=== PATIENT | male | born 1940 | race Caucasian/White ===

== ENCOUNTER 2024-05-22 08:45 | Inpatient (IN) | payer MEDICARE, SELFPAY ==
[2024-05-22] VITALS (25 sets, daily range): BP systolic 117–173; BP diastolic 76–116; PULSE 76–94; RESP 12–95; TEMP 36.4–36.9; O2SAT 93–97; BMI 29.2
--- NOTE | 2024-05-22 | XR_ITS ---
Examinations: MRI Brain without intravenous contrast. MRA brain without intravenous contrast. MRA carotids without intravenous contrast 3-D vascular reconstructions Date and time of exam: May 22, 2024 at 1621 hours INDICATIONS: Onset altered mental status beginning 3:00 AM this morning worse with slurred speech and facial droop Technique: Multiple axial and sagittal images of the brain have been obtained MRA brain carotid images without contrast obtained, including 3-D postprocessing, vascular maximum intensity projection images Findings: [place] is not enlarged. The optic chiasm and infundibular stalk are not remarkable. Prepontine and interpeduncular cisterns are not enlarged. No localized enlargement of the medulla or petr. Fourth ventricle and cerebellar tonsils normal in position. Subacute hemorrhage is not seen. Fourth ventricle is midline. Mass in the cerebellopontine angle region is not evident. 7th and 8th nerve complexes exhibits symmetry. Globes are symmetrical with no retro-orbital mass. Increased white matter signal very prominent Diffusion-weighted images demonstrate foci restricted diffusion, 3 mm left occipital lobe, 11 mm, 10 mm left parietal lobe, 6 mm left parietal lobe Mass-effect upon the ventricular system is not identified. MRA carotid images no critical carotid stenoses. MRA brain images no large vessel occlusions Impression: Multiple embolic type acute infarcts, left occipital lobe, left parietal lobe as above Chronic multi-infarct dementia pattern
--- NOTE | 2024-05-22 08:46 | PC.NURSE ---
PATIENT CAME IN VIA EMS FOR AMS, SLURRED SPEECH, AND LT SIDE WEAKNESS PER FAMILY. LNW IS NOT TOTALLY CLEAR. PER DAUGHTER LNW 7PM BUT STATES PT WAS STILL AWAKE IN BED, UNSURE EXACT TIME, STATES BETWEEN MIDNIGHT TO 3AM AND PT APPEARED NORMAL AT THAT TIME. BS 158 NOTED BY EMS. PATIENT WAS TAKEN TO CT AFTER MD EVALUATED PT. DENIES ANY BLOOD THINNERS. PT WAS ABLE TO MOVE ALL LIMBS BUT LIMITED TO RT LOWER EXTREMITY. SENSATION NORMAL EXCEPT THE RT LOWER LEG. PT DID HAVE DIFFICULTY GETTING WORDS OUT AND READING PHRASES. HX OF DEMENTIA.
--- NOTE | 2024-05-22 08:52 | EKG_ITS ---
[facility] Test Date: 2024-05-22 Pat Name: CLARICE PEDERSEN Department: Room: - Gender: Male [employer] T[employer]: : 1940 Requested By: Tye Julian Order Number: [id number] Reading MD: Tye Julian Measurements Intervals [place] Rate: 77 P: 109 MS: 316 QRS: -20 QRSD: 143 T: 136 QT: 432 QTc: 490 Interpretive Statements SINUS RHYTHM WITH FIRST DEGREE AV BLOCK LEFT BUNDLE BRANCH BLOCK [120+ ms QRS DURATION, 80+ ms Q/S IN V1/V2, 85+ ms R IN I/aVL/V5/V6] No previous ECG available for comparison /store/S0/[id number].pdf
--- NOTE | 2024-05-22 08:52 | PD.EDADULT ---
ED General RME/HPI General Chief complaint: Altered Mental Status Stated complaint: STROKE Time Seen by Provider: 05/22/24 08:54 Arrival date/time: 05/22/24 08:45 RME / HPI RME / HPI narrative: 84 year old male with history of dementia presents to the ED BIBA from home for altered mental status today. Per medics, and daughter on scene reported some time around midnight-3am patient was restless and altered. This morning noted worsening in mentation with slurred speech and facial droop, prompting ED visit. On scene G-FAST=2. Daughter states she last saw the patient at 7pm yesterday 05/21 and was at his baseline. While in the ED patient is unable to provide any additional history. No family at bedside. Related Data Allergies Allergy/AdvReac Type Severity Reaction Status Date / Time No Known Allergies Allergy Verified 05/22/24 11:30 Review of Systems Review of Systems ROS Unobtainable: unobtainable due to mental status Past Medical History Social History SMOKING STATUS: Unknown if ever smoked ED Exam Narrative Physical exam: GENERAL APPEARANCE: Awake, nontoxic appearing HEENT: NC, AT. MMM. EOMI, clear conjunctiva, oropharynx clear. NECK: Supple without lymphadenopathy. No stiffness or restricted ROM. HEART: Normal rate and regular rhythm, normal S1/S1, no m/r/g LUNGS: CTAB, moving air well. No crackles or wheezes are heard. ABDOMEN: Soft, nontender, nondistended with good bowel sounds heard. BACK: No midline C/T/L spine pain or deformity, No CVAT, no obvious deformity. EXTREMITIES: Without cyanosis, clubbing or edema. MUSCULOSKELETAL: FROM of all major joints, no chest tenderness NEUROLOGICAL: Subtle right facial droop, slurred speech, no drift. Awake, moving all extremities. Skin: Warm and dry without any rash. Course Quality Measures Suspected type of Stroke: Non Acute Last known well (date): 05/21/24 Last known well (time): 19:00 Tenecteplase given: Reason(s) TPA not given: Outside the time window not given stroke Orders Category Date Time Status Bedside Blood Glucose NOW Care 05/22/24 08:52 Active Finisher Polisher NOW Care 05/22/24 08:52 Active Continuous Pulse Oximetry NOW Care 05/22/24 08:52 Active EKG (ED ONLY) *Do not use* NOW Care 05/22/24 08:52 Completed In and Out Catheter NEEDED Care 05/22/24 08:52 Active Insert IV NOW Care 05/22/24 08:52 Active NIH Stroke Scale now Care 05/22/24 08:52 Active NPO NOW Care 05/22/24 08:52 Active Neuro Check Q30MIN Care 05/22/24 08:52 Active Nurse Swallow Screen x1 Care 05/22/24 08:52 Active Consult to Neurology / Tele-Neurology Routine Cons 05/22/24 08:[address] angio stroke protocol Stat Exams 05/22/24 09:[address] stroke protocol Stat Exams 05/22/24 08:52 Completed EKG (ED Only) Stat Exams 05/22/24 08:52 Draft Blood Culture (Lab) Stat Lab 05/22/24 11:27 Received CBC Stat Lab 05/22/24 09:03 Completed Comprehensive Metabolic Panel Stat Lab 05/22/24 09:03 Completed Drug Screen,Urine Stat Lab 05/22/24 08:04 Completed Magnesium Stat Lab 05/22/24 09:03 Completed Partial Thromboplastin Time Stat Lab 05/22/24 09:03 Completed Procalcitonin Stat Lab 05/22/24 11:30 Completed Prothrombin Time with INR Stat Lab 05/22/24 09:03 Completed Troponin I Stat Lab 05/22/24 09:03 Completed Urinalysis Stat Lab 05/22/24 08:04 Completed Urine Culture Stat Lab 05/22/24 08:04 Received Aspirin [Ecotrin] Med 05/22/24 11:24 Discontinued 81 mg PO X1 ONE Ondansetron Inj [Zofran Inj] Med 05/22/24 08:52 Discontinued 4 mg IV Q4HR PRN cefTRIAXone/D5w 1gm IV premix [Rocephin/D5w 1gm IV Med 05/22/24 11:18 Discontinued premix] 50 ml IV X1 Oxygen Delivery NOW RT 05/22/24 08:52 Active Vital Signs Vital signs: Vital Signs Temperature 98.2 F 05/22/24 08:50 Pulse Rate 85 05/22/24 08:50 Respiratory Rate 19 05/22/24 08:50 Blood Pressure 124/85 H 05/22/24 08:50 Pulse Oximetry (%) 93 L 05/22/24 08:50 Pulse ox is 93% on room air which is low. [facility] Patient data External records reviewed:: EMS form Clinical information provided by:: EMS (Provided prehospital course) Social determinants that could affect healthcare access:: none Patient has the following chronic illnesses:: Dementia How is presenting disease/condition affected by chronic disease/condition?: exacerbated by Evaluation data The following diagnostics were reviewed and interpreted by me:: lab results, radiology exam(s) and EKG tracing(s) (Sinus rhythm, rate 77, left bundle branch block, no acute ST or T-wave changes, no STEMI. ) Lab and/or radiology exams considered but not ordered:: None Interpretation Summary: Ordering Physician: Tye Julian MD Date of Service: 05/22/24 Procedure(s): CT stroke protocol Accession Number(s): [id number] cc: Tye Julian MD; Quentin Espinoza MD~ Examination: CT brain head without contrast. 2-D sagittal coronal reconstructions Date and time of exam:May 22, 2024 at 0856 hours INDICATIONS: Stroke alert, onset focal neurologic deficit, slurred speech, altered mental status today, clinical diagnosis stroke CTDI: vol (mGy):51.9 DLP: (mGycm):1052 Technique: Multiple CT axial sections of the brain have been obtained, 5 mm slice thickness. Contrast has not been administered. 2-D sagittal, coronal reconstructions have been obtained Low dose protocols were performed. One or more of the following dose reduction techniques were used; automated exposure control, adjustment of the mA and/or KV according to patient size, use of iterative reconstruction technique. Findings: No significant ventricular enlargement. Bifrontal encephalomalacia Old infarct in the left basal ganglia and right occipital lobe Smaller old infarct in the left occipital lobe Bilateral cerebellar hemisphere infarcts which also appear old Intra-axial or extra-axial hemorrhage density is not seen. No mass effect or midline shift Basal cisterns are not remarkable. Fourth ventricle is midline. Cranial vault intact. Impression: Negative for acute hemorrhage, mass effect or midline shift Multiple infarcts as above, which appear old, but clinical correlation advised Recommend repeat brain MRI MRA without contrast, stroke protocol follow-up Dictated By:Quentin Espinoza MD Signed By:<Electronically signed by Quentin Espinoza MD in [place]>05/22/24 0902 Ordering Physician: Tye Julian MD Date of Service: 05/22/24 Procedure(s): CT angio stroke protocol Accession Number(s): [id number] cc: Sudhakar Willis MD; Tye Julian MD; Quentin Espinoza MD~ Examination: CTA carotids with intravenous contrast CTA brain, head with intravenous contrast. 2-D sagittal, coronal reconstructions. 3-D reconstructions. Exam date and time: May 22, 2024 0914 hours INDICATIONS: Stroke alert, onset slurred speech altered mental status today CTDI: vol (mGy) 11.2 DLP: (mGycm) 435 Technique: Multiple CTA axial brain, head carotid images post intravenous contrast injection 75 cc, Isovue-370. 2-D sagittal, coronal reconstructions. 3-D reconstructions, 3-D post processing including vascular maximum intensity projection images. Low dose protocols were performed. One or more of the following dose reduction techniques were used; automated exposure control, adjustment of the mA and/or KV according to patient size, use of iterative reconstruction technique. Findings: No significant common carotid carotid bifurcation or internal carotid artery stenoses Dominant right vertebral artery with no critical stenoses No cerebral large vessel arterial occlusions, thrombus, dissection or cerebral aneurysm IMPRESSION: No significant neck arterial stenoses No cerebral large vessel arterial occlusions, thrombus, dissection or cerebral aneurysm Dictated By:Quentin Espinoza MD Signed By:<Electronically signed by Quentin Espinoza MD in [place]>05/22/24 1001 Medications Medications considered but not ordered:: None Medication administrations:: Medication Administration History Acetaminophen (Acetaminophen 325 Mg Tablet) 650 mg PO Q6H PRN PRN Reason: Fever >101.5 Stop: 06/21/24 11:45 Acetaminophen (Acetaminophen 325 Mg Tablet) 650 mg PO Q6H PRN PRN Reason: PAIN SCALE 1-3 (mild Stop: 06/21/24 11:45 Hydrocodone Bitart/Acetaminophen (Hydrocodone/Apap 5/325 Tablet) 1 tab PO Q6HR PRN PRN Reason: PAIN SCALE 4-6 (Moderate Stop: 05/27/24 11:45 Aspirin (Aspirin Ec 81 Mg Tabec) 81 mg PO QDAY [facility] Stop: 06/22/24 08:59 Heparin Sodium (Porcine) (Heparin Sod Inj 5000 Unit/Ml Vial) 5,000 unit SC Q12H DULCE Stop: 06/05/24 11:59 Last Admin: 05/22/24 12:40 Dose: Not Given Documented By: HORACIO Non-Admin Reason: Other, see note Ceftriaxone Sodium/Dextrose (Rocephin/D5w 1gm Iv Premix) 50 mls @ 100 mls/hr IV QDAY [facility] Stop: 05/30/24 08:59 Labetalol HCl (Labetalol 100 Mg Tablet) 100 mg PO Q6H PRN PRN Reason: If SBP>220mmHg or DBP >120mmHg Stop: 06/21/24 16:08 Morphine Sulfate (Morphine Sulf Inj 10 Mg/Ml Vial) 1 mg IVP Q4H PRN PRN Reason: PAIN SCALE 7-10 (Severe Stop: 05/27/24 11:45 Ondansetron HCl (Ondansetron Inj 2 Mg/Ml Inj 2 Ml) 4 mg IV Q6H PRN; Protocol PRN Reason: NAUSEA OR VOMITING Stop: 06/21/24 11:45 Discontinued Medications Aspirin (Aspirin Ec 81 Mg Tabec) 81 mg PO X1 ONE Stop: 05/22/24 11:25 Last Admin: 05/22/24 11:31 Dose: Not Given Documented By: HORACIO Non-Admin Reason: NPO Ceftriaxone Sodium/Dextrose (Rocephin/D5w 1gm Iv Premix) 50 mls @ 100 mls/hr IV X1 ONE Stop: 05/22/24 11:47 Last Infusion: 05/22/24 12:20 Dose: Infused Documented By: Admin: 05/22/24 11:31 Dose: 100 mls/hr Documented By: HORACIO Ondansetron HCl (Ondansetron Inj 2 Mg/Ml Inj 2 Ml) 4 mg IV Q4HR PRN PRN Reason: NAUSEA OR VOMITING Stop: 06/21/24 08:51 See above Consultations Consultation(s) initiated? (list below): Yes Consultation #1 (Physician, Specialty, Details): I spoke with teleneurologist Dr. Taylor. Discussed patients PMHx, ED course, exam findings and radiology results. States patient was LKW at 07:00pm last night, not a tpa candidate given he is above the 4.5 window. Time: 09:40 Consultation #2 (Physician, Specialty, Details): I spoke with resident Dr. Jocye working with Dr. Napoles Time: 11:25 Diagnosis Differential Diagnosis ED Complaint MDM: TIA, CVA, UTI, dehydration Most likely diagnosis given after review of the tests above:: CVA Admission Indicated Admission indicated?: indicated Explain why admission is indicated or not indicated:: Further stroke workup. Admission Request Was there a request for admission?: Yes Admission Attestation Admission request attestation: Discussed case with [] from Hospitalist service regarding admission. Discussed patients ED course, exam findings, labs, and radiology results. The Hospitalist [agrees,declines] to accept the patient for admission. Disposition Plan Disposition Plan: Admit Medical Decision Making Differential Diagnosis Differential Diagnosis: TIA, CVA, UTI, dehydration Lab Data 05/22/24 09:03 05/22/24 09:03 Labs: Lab Results 05/22/24 05/22/24 05/22/24 Range/Units 08:04 09:03 11:30 WBC 8.5 (3.8-10.6) Thou/mm3 RBC 4.28 L (4.50-5.90) Miln/mm3 Hgb 13.9 (13.5-16.0) g/dL Hct 41.1 (41.0-53.0) % MCV 96 (80-100) fL MCH 32.5 (25.0-35.0) pg MCHC 33.8 (31.0-37.0) g/dl RDW Std Deviation 51.4 H (35.1-43.9) fL Plt Count 122 L (140-440) Thou/mm3 Neut % (Auto) 72 (37-80) % Lymph % (Auto) 19 (10-50) % Levy % (Auto) 6 (0-12) % Eos % (Auto) 2 (0-10) % Baso % (Auto) 1 (0-2.5) % Neut # (Auto) 6.1 (1.8-7.7) Thou/mm3 Lymph # (Auto) 1.6 (1.0-4.8) Thou/mm3 Levy # (Auto) 0.5 (0.0-0.8) Thou/mm3 Eos # (Auto) 0.1 (0.0-0.5) Thou/mm3 Baso # (Auto) 0.0 (0.0-0.2) Thou/mm3 Immature Gran # (Auto) 0.04 H (0.00-0.00) Thou/mm3 Absolute Nucleated RBC 0.00 (0.00-0.00) Thou/mm3 Immature Gran % 1 H (0-0) % Nucleated RBC % 0 (0) /100 WBC PT 11.4 (9.0-12.2) Seconds INR 1.0 (0.9-1.3) APTT 25.9 (22.0-36.0) Seconds Sodium 145 (136-145) mMol/L Potassium 3.8 (3.4-5.1) mMol/L Chloride 109 H (98-107) mMol/L Carbon Dioxide 31.9 H (20.0-31.0) mMol/L Anion Gap 4 L (7-16) BUN 15 (9-23) mg/dL Creatinine 1.2 (0.6-1.3) mg/dL Estim Creat Clear Calc Not Performed. eGFR > 60 (60 - ) See Note BUN/Creatinine Ratio 13 (12-20) Ratio Glucose 120 H (74-106) mg/dL Calculated Osmolality 290 (275-295) Calcium 9.5 (8.3-10.6) mg/dL Corrected Calcium 9.5 (8.5-10.1) mg/dL Magnesium 2.1 (1.6-2.6) mg/dL Total Bilirubin 0.8 (0.3-1.2) mg/dL AST 16 (0-34) U/L ALT 14 (10-49) U/L Alkaline Phosphatase 105 (46-116) U/L Troponin I < 0.020 (0.0-0.045) ng/mL Total Protein 6.4 (5.7-8.2) gm/dL Albumin 4.1 (3.4-4.8) gm/dL Globulin 2.3 (2.3-3.5) gm/dL Albumin/Globulin Ratio 1.8 (1.2-2.2) Procalcitonin 0.06 (0.0-0.49) ng/ml Ur Collection Type Catheter Urine Color Yellow (Lt Yel-Yel) Urine Clarity Hazy (Clear/Hazy) Urine pH 5.5 (5.0-7.0) Ur Specific [place] 1.027 (1.001-1.035) Urine Protein Trace (Neg - Trace) Urine Glucose (UA) Negative (Negative) Urine Ketones Negative (Negative) Urine Blood Negative (Negative) Urine Nitrite Positive (Negative) Urine Bilirubin Negative (Negative) Urine Urobilinogen (Auto) Negative (0.0-1.0) mg/dL Ur Leukocyte Esterase Positive (Negative) Urine RBC 11 H (0-3) /hpf Urine WBC 57 H (0-5) /hpf Ur Squamous Epith Cells 1 (0-5) /hpf Urine Bacteria 2+ A (None) Hyaline Casts < 1 (0-1) /hpf Urine Opiates Screen Negative (Negative) Urine Fentanyl Screen Negative (Negative) Ur Barbiturates Screen Negative (Negative) U Amphetamin/Meth Scrn Negative (Negative) U Benzodiazepines Scrn Negative (Negative) U Cocaine Metab Screen Negative (Negative) U Marijuana (THC) Screen Negative (Negative) Discharge Plan Plan Patient Disposition: Admit Acute Care w/in Hospital Problem List Clinical Impression: Acute CVA (cerebrovascular accident), Dementia, Acute UTI
[2024-05-22 09:11] LABS: Basophils % (Auto) 1 % (0-2.5); Eosinophils # (Auto) 0.1 Thou/mm3 (0.0-0.5); Eosinophils % (Auto) 2 % (0-10); Hematocrit 41.1 % (41.0-53.0); Hemoglobin 13.9 g/dL (13.5-16.0); Immature Granulocytes % (Auto) 1 % (0-0); Immature Granulocytes Auto 0.04 Thou/mm3 (0.00-0.00); Lymphocytes # (Auto) 1.6 Thou/mm3 (1.0-4.8); Lymphocytes % (Auto) 19 % (10-50); Mean Corpuscular HGB Conc 33.8 g/dl (31.0-37.0); Mean Corpuscular Hemoglobin 32.5 pg (25.0-35.0); Mean Corpuscular Volume 96 fL (80-100); Monocytes # (Auto) 0.5 Thou/mm3 (0.0-0.8); Monocytes % (Auto) 6 % (0-12); Neutrophils # (Auto) 6.1 Thou/mm3 (1.8-7.7); Neutrophils % (Auto) 72 % (37-80); Nucleated Red Blood Cell % 0 /100 WBC (0); Platelet Count 122 Thou/mm3 (140-440); RDW Standard Deviation 51.4 fL (35.1-43.9); Red Blood Count 4.28 Miln/mm3 (4.50-5.90); White Blood Count 8.5 Thou/mm3 (3.8-10.6)
--- NOTE | 2024-05-22 09:12 | XR_ITS ---
Examination: CTA carotids with intravenous contrast CTA brain, head with intravenous contrast. 2-D sagittal, coronal reconstructions. 3-D reconstructions. Exam date and time: May 22, 2024 0914 hours INDICATIONS: Stroke alert, onset slurred speech altered mental status today CTDI: vol (mGy) 11.2 DLP: (mGycm) 435 Technique: Multiple CTA axial brain, head carotid images post intravenous contrast injection 75 cc, Isovue-370. 2-D sagittal, coronal reconstructions. 3-D reconstructions, 3-D post processing including vascular maximum intensity projection images. Low dose protocols were performed. One or more of the following dose reduction techniques were used; automated exposure control, adjustment of the mA and/or KV according to patient size, use of iterative reconstruction technique. Findings: No significant common carotid carotid bifurcation or internal carotid artery stenoses Dominant right vertebral artery with no critical stenoses No cerebral large vessel arterial occlusions, thrombus, dissection or cerebral aneurysm IMPRESSION: No significant neck arterial stenoses No cerebral large vessel arterial occlusions, thrombus, dissection or cerebral aneurysm
--- NOTE | 2024-05-22 09:27 | PC.NURSE ---
RETURNED FROM CT VIA [facility] AT THIS TIME
[2024-05-22 09:31] LABS: Alanine Aminotransferase 14 U/L (10-49); Albumin, Serum 4.1 gm/dL (3.4-4.8); Albumin/Globulin Ratio 1.8 (1.2-2.2); Alkaline Phosphatase 105 U/L (46-116); Anion Gap 4 (7-16); Aspartate Amino Transferase 16 U/L (0-34); BUN/Creatinine Ratio 13 Ratio (12-20); Bilirubin,Total 0.8 mg/dL (0.3-1.2); Blood Urea Nitrogen 15 mg/dL (9-23); Calcium 9.5 mg/dL (8.3-10.6); Calcium (Corrected) 9.5 mg/dL (8.5-10.1); Carbon Dioxide 31.9 mMol/L (20.0-31.0); Chloride 109 mMol/L (98-107); Creatinine (Component) 1.2 mg/dL (0.6-1.3); Globulin 2.3 gm/dL (2.3-3.5); Glucose 120 mg/dL (74-106); Magnesium 2.1 mg/dL (1.6-2.6); Osmolality,Calculated 290 (275-295); Potassium 3.8 mMol/L (3.4-5.1); Sodium 145 mMol/L (136-145); Total Protein 6.4 gm/dL (5.7-8.2); Troponin I < 0.020 ng/mL (0.0-0.045); eGFR > 60 See Note
[2024-05-22 09:34] LABS: Partial Thromboplastin Time 25.9 Seconds (22.0-36.0); Prothrombin Time 11.4 Seconds (9.0-12.2)
--- NOTE | 2024-05-22 09:39 | PD.TNEURO ---
Tele Neuro Consultation Consultation Date 05/22/24 Most Recent Vital Signs Last Vital Signs Temp 98.2 F 05/22/24 08:50 Pulse 85 05/22/24 08:50 Resp 19 05/22/24 08:50 BP 124/85 H 05/22/24 08:50 Pulse Ox 93 L 05/22/24 08:50 Laboratory-Coagulation Panel PT 11.4 Seconds (9.0-12.2) 05/22/24 09:03 INR 1.0 (0.9-1.3) 05/22/24 09:03 APTT 25.9 Seconds (22.0-36.0) 05/22/24 09:03 Consultation Narrative [facility] Tele[facility]urology Consult Services Patient Name:???Meir Anderson Date of :???1940 Identification Number:??? Date of Service:???05/22/2024 08:43:30 Diagnosis:?I63.89 - Cerebrovascular accident (CVA) due to other mechanism (HCCC) Impression: ?84 y/o M with history of HTN, dementia, imaging evidence of prior strokes, presenting to hospital with dysarthria, facial droop, and altered mentation, LKN 7:00 PM last night. NIHSS is 7 (unable to answer orientation questions, right facial droop, dysarthria, right leg drift, potentially aphasia in that he is unable to read sentences or describe picture). NCHCT shows multiple chronic infarcts, no acute abnormalities. He is not thrombolytic candidate since LKN > 4.5 hours. CTA head/neck does not suggest LVO. ? ?Highest concern is for acute ischemic stroke, versus recrudescence of prior stroke symptoms in setting of metabolic/infectious etiology. Recommend admission for monitoring and further evaluation. Our recommendations are outlined below. Recommendations: ? Stroke/Telemetry Floor ? Neuro Checks ? Bedside Swallow Eval ? DVT Prophylaxis ? IV Fluids, Normal Saline ? Head of Bed 30 Degrees ? Euglycemia and Avoid Hyperthermia (PRN Acetaminophen) ? Initiate or continue Aspirin 81 MG daily ? Antihypertensives PRN if Blood pressure is greater than 220/120 or there is a concern for End organ damage/contraindications for permissive HTN. If blood pressure is greater than 220/120 give labetalol PO or IV or Vasotec IV with a goal of 15% reduction in BP during the first 24 hours. ?-MRI brain w/o contrast ?-TTE ?-telemetry monitoring ?-lipid profile, A1C ?-metabolic/infectious work-up Sign Out: ? Discussed with Emergency Department Provider Advanced Imaging:Advanced imaging has been ordered. Results pending. Metrics: Last Known Well: 05/21/2024 19:00:00 Dispatch Time: 05/22/2024 08:43:30 Arrival Time: 05/22/2024 08:45:00 Initial Response Time: 05/22/2024 08:47:46Symptoms: facial droop, dysarthria, AMS. Initial patient interaction: 05/22/2024 08:56:00 NIHSS Assessment Completed: 05/22/2024 09:10:28Patient is not a candidate for Thrombolytic. Thrombolytic Medical Decision: 05/22/2024 09:13:34Patient was not deemed candidate for Thrombolytic because of following reasons: LKW outside 4.[address] head showed no acute hemorrhage or acute core infarct. I personally Reviewed the CT Head and it Showed multiple chronic infarcts (bilateral occipital lobes, bilateral cerebellar hemispheres, left basal ganglia, left frontal region); no acute abnormalities Primary Provider Notified of Diagnostic Impression and Management Plan on: 05/22/2024 09:39:18 History of Present Illness:Patient is a 84 year old Male. Patient was brought by EMS for symptoms of facial droop, dysarthria, AMS. History is provided by EMS. Patient himself unable to provide history due to difficulty with articulation and altered mentation. Patient does reportedly have baseline history of dementia. LKN as per patient's daughter was around 7 PM last night. Throughout the night, he apparently had been restless and was pacing, which is abnormal. When she checked in on him around 7 AM, he was noted to have dysarthria, facial droop and altered mentation. EMS was activated, and he was taken to ER for further evaluation. There is no family at the bedside at this time, no further details immediately available. ? Past Medical History: ?Hypertension ?Stroke ?Dementia/MCI Medications: No Anticoagulant use? No Antiplatelet use Reviewed EMR for current medications Allergies:? Reviewed Social History: Unable To Obtain Due To Patient Status :?Patient Is Confused Family History: There is no family history of premature cerebrovascular disease pertinent to this consultation ROS : 14 Points Review of Systems was performed and was negative except mentioned in HPI. Past Surgical History: There Is No Surgical History Contributory To Today?s Visit ? Examination: BP(136/86),?Pulse(93), 1A: Level of Consciousness - Arouses to minor stimulation?+ 1 1B: Ask Month and Age - Could Not Answer Either Question Correctly?+ 2 1C: Blink Eyes & Squeeze Hands - Performs Both Tasks?+ 0 2: Test Horizontal Extraocular Movements - Normal?+ 0 3: Test Visual Boateng - No Visual Loss?+ 0 4: Test Facial Palsy (Use Grimace if Obtunded) - Minor paralysis (flat nasolabial fold, smile asymmetry)?+ 1 5A: Test Left Arm Motor Drift - No Drift for 10 Seconds?+ 0 5B: Test Right Arm Motor Drift - No Drift for 10 Seconds?+ 0 6A: Test Left Leg Motor Drift - No Drift for 5 Seconds?+ 0 6B: Test Right Leg Motor Drift - Drift, but doesn't hit bed?+ 1 7: Test Limb Ataxia (FNF/Heel-Rhodes) - No Ataxia?+ 0 8: Test Sensation - Normal; No sensory loss?+ 0 9: Test Language/Aphasia - Mild-Moderate Aphasia: Some Obvious Changes, Without Significant Limitation?+ 1 10: Test Dysarthria - Mild-Moderate Dysarthria: Slurring but can be understood?+ 1 11: Test Extinction/Inattention - No abnormality?+ 0 NIHSS Score:?7 NIHSS Free Text :?-states month is August ?-doesn't know age ?-right lower facial droop ?-able to name objects, but difficulty reading sentences and describing picture scene Pre-Morbid Modified [place] Scale:Unable to assess Spoke with :?Dr. Julian This consult was conducted in real time using interactive audio and video technology. Patient was informed of the technology being used for this visit and agreed to proceed. Patient located in hospital and provider located at home/office setting. Patient is being evaluated for possible acute neurologic impairment and high probability of imminent or life-threatening deterioration. I spent total of 55 minutes providing care to this patient, including time for face to face visit via telemedicine, review of medical records, imaging studies and discussion of findings with providers, the patient and/or family. Dr Rafita Taylor [facility] For Inpatient follow-up with [facility] physician please call [facility] at . As we are not an outpatient service for any post hospital discharge needs please contact the hospital for assistance. If you have any questions for the [facility] physicians or need to reconsult for clinical or diagnostic changes please contact us via [facility] at . ?
[2024-05-22 09:50] LABS: Collection Type, Urine Catheter
[2024-05-22 10:11] LABS: Amphetamine/Methamp Scrn,U Negative (Negative); Barbiturate Screen,Urine Negative (Negative); Benzodiazepines Screen,Urine Negative (Negative); Benzoylecgonine Screen, Ur Negative (Negative); Fentanyl Screen,Urine Negative (Negative); Opiate Screen,Urine Negative (Negative); THC Screen,Urine Negative (Negative)
[2024-05-22 10:28] LABS: Bacteria,Urine 2+; Bilirubin,Urine Negative (Negative); Blood,Urine Negative (Negative); Color,Urine Yellow (Lt Yel-Yel); Glucose, Urine Negative (Negative); Hyaline Casts,Urine < 1 /hpf (0-1); Ketones,Urine Negative (Negative); Leukocyte Esterase,Urine Positive (Negative); Nitrite,Urine Positive (Negative); PH,Urine 5.5 (5.0-7.0); Protein,Urine Trace (Neg - Trace); RBC,Urine 11 /hpf (0-3); Specific Gravity,Urine 1.027 (1.001-1.035); Squamous Epithelial Cell,Urine 1 /hpf (0-5); Urobilinogen,Urine Negative mg/dL (0.0-1.0); WBC,Urine 57 /hpf (0-5)
[2024-05-22 10:31] LABS: Clarity,Urine Hazy (Clear/Hazy)
[2024-05-22] MEDS: cefTRIAXone/D5w 1gm IV premix 50 ML IV (11:31)
--- NOTE | 2024-05-22 11:49 | ECHO_ITS ---
Transthoracic Echo Report Ht (in): 66 Wt (lb): 186 Exam Location: Portable Status: Emergency Burn Out Scarfing Operator: Khadra Cason Indications: Procedure Performed: BP: 131 / 89 HR: 79 Rhythm: Atrial fibrillation Technical Quality: Technically difficult study MEASUREMENTS (Male / Female) Normal Values 2D ECHO LV Diastolic Diameter PLAX 4.0 cm 4.2 - 5.9 / 3.9 - 5.3 cm LV Systolic Diameter PLAX 3.1 cm IVS Diastolic Thickness 1.2 cm 0.6 - 1.0 / 0.6 - 0.9 cm LVPW Diastolic Thickness 1.2 cm 0.6 - 1.0 / 0.6 - 0.9 cm LV Relative Wall Thickness 0.6 LVOT Diameter 1.5 cm LA Volume Index 28.2 cm?/m? 16 - 28 cm?/m? Ascending Aorta Diameter 4.4 cm M-MODE Aortic Root Diameter MM 3.4 cm LA Systolic Diameter MM 3.0 cm LA Ao Ratio MM 0.9 AV Cusp Separation MM 1.7 cm DOPPLER AV Peak Velocity 244.8 cm/s AV Peak Gradient 24.0 mmHg AV Mean Gradient 12.6 mmHg AV Velocity Time Integral 46.2 cm LVOT Peak Velocity 63.5 cm/s LVOT Peak Gradient 1.6 mmHg LVOT Velocity Time Integral 12.6 cm LVOT Cardiac Index 876.3 cm?/min?m? AV Area Cont Eq vti 0.5 cm? AV Area Cont Eq pk 0.5 cm? MV Peak Velocity 110.0 cm/s MV Peak Gradient 4.8 mmHg MV Mean Velocity 53.5 cm/s MV Mean Gradient 2.0 mmHg MV Area PHT 4.3 cm? Mitral E Point Velocity 100.0 cm/s Mitral A Point Velocity 1.0 cm/s Mitral E to A Ratio 103.1 LV E' Lateral Velocity 7.1 cm/s Mitral E to LV E' Lateral Ratio 14.1 LV E' Septal Velocity 7.0 cm/s Mitral E to LV E' Septal Ratio 14.4 FINDINGS Left Ventricle Normal left ventricular size. Mild LVH.Low systolic function. Dyskentic apick septal and inferior wa ll. The ejection fraction is visually estimated at 45-50%. Right Ventricle The right ventricle is normal in size and systolic function. Left Atrium The left atrium is normal by two-dimensional, color flow and Doppler imaging with no structural abnormalities, no thrombus formation present. Right Atrium Right atrium is not well visualized. Atrial Septum The interatrial septum appears normal with no evidence of a shunt. Aorta The aortic root is moderately dilated. and the acending aorta is moderately dilated. 4.4cm. Mitral Valve The mitral valve is normal by two-dimensional, color flow and Doppler interrogation. There is no sig nificant mitral valve regurgitation. Aortic Valve The aortic valve is trileaflet. Mild stenosis, mean gradient 19mmHg, vmax 2.7ms/. There is no signif icant aortic valve regurgitation. Tricuspid Valve The tricuspid valve is normal by two-dimensional, color flow and Doppler interrogation. There is tra ce tricuspid valve regurgitation. Pulmonic Valve The pulmonic valve is not well visualized. There is no significant pulmonic valve regurgitation. Vessels The pulmonary artery appears normal. The inferior vena cava pulmonary and hepatic veins appear sarah l. Pericardium The pericardium is normal by two-dimensional imaging. There is no significant pericardial effusion. CONCLUSIONS Indication: CVA Negative bubble study. TTE is suboptimal to rule out PFO or ASD. Consider [place] if high clinical suspi cion. The aortic root is moderately dilated and the ascending aorta is moderately dilated. 4.4cm. Normal LV size. Low normal function around 45-50%. Mild LVH. Lateral and septal wall dysnchrony not ed due to LBBB. Cannot determine diastolic function due to Afib. Normal RV size and function. Trace TR. Mild to moderate AV stenosis, mean gradient 19mmHg. vmax 2.7m/s. KRISSY < 1 sq cm. Probably under estimated AV stenosis due to mildly low EF. Ibrahima Enriquez (Electronically Signed) Final Date: 23 May 2024 18:38
[2024-05-22 12:01] LABS: Procalcitonin 0.06 ng/ml (0.0-0.49)
--- NOTE | 2024-05-22 13:08 | ESHP_ITS ---
<Statement entered by Sisi Joyce MD - 05/23/24 06:00> Mr. Meir Enrique is an 84y/o male with a history of hypertension, dementia, prior strokes found on imaging but not known to patient's family who presented to the ED on 05/22/2024 for acute-onset dysarthria and right facial droop since 7:15AM this morning and admitted for stroke workup. Per patient's family, patient is A&O x 2 and able to speak in full and clear sentences. Patient on bedside had difficulty with saying his name and place, and pinpoint his tow family members at bedside d/t his signfiicant aphasia. Patient doesn't remember what happened during the stroke. Will order MR stroke protocol, start Asa, head of bed elevation > 30 degrees, Neuro checks Q4H, monitor on tele, speech eval, and r/o any other infectious/metabolic causes. I discussed with and supervised the internet e commerce specialist physician who took care of this patient. I personally saw and examined the patient and discussed the assessment and plan with the entire medicine team, including my attending Dr. Napoles, I agree with most of the assessment and plan as documented below Sisi Joyce M.D. PGY-2 Documentation for date of: 05/22/24 HPI History of Present Illness Chief complaint: CVA rule out History of present illness: Mr. Meir Enrique is an 84y/o male with a history of hypertension, dementia, prior strokes found on imaging but not known to patient's family who presented to the ED on 05/22/2024 for acute-onset dysarthria and facial droop. Patient himself is unable to answer questions verbally, so history taken from daughter and at bedside. Daughter states that yesterday patient was overall at his neurological baseline in which he can speak clearly without issue, move all extremities, and with some assistance can move from bed into a wheelchair to wheel himself around the house. Patient typically undergoes frequent physical therapy at home to strengthen his extremities, but daughter states that yesterday, he was unwilling to participate in physical therapy due to fatigue. and daughter had seen patient at 3AM this morning, at which time patient was restless but at his neurological baseline still. This morning at 7AM, family noted slurred speech with facial droop. They could not understand any of his speech and he was unable to move from bed, so EMS was called and brought pt into the ED. Per daughter, patient has no knowledge of any previous strokes in his past, and has no new changes in medications. He is incontinent of urine at baseline. In the ED, patient was found to have NIHSS 7, slurred speech, right-sided facial droop, slight drift of the right lower extremties. He was not a tPA candidate due to his last well known time being greater than 4.5 hours from his admission to the ED. He was found to be afebrile, normotensive, pulse 85, respirations 19, and spO2 93% on room air. Labs were grossly unremarkable with normal WBC, Hgb 13.9, electrolytes within normal limits, BUN/Cr within normal limits, coagulation studies within normal limits, and AST/ALT within normal limits. He was given one dose of Rocephin and admitted to the floor. PMH: As above Surgical Hx: None Medications: Donepezil 10mg qd, losartan 50mg qd, protonix 40mg qd, quetiapine 25mg qd, memantine 5mg BID, sertraline 100mg qd, carvedilol 3.125mg BID Allergies: NKDA Review of Systems Constitutional Comments: Unable to assess as patient not able to respond verbally aside from shaking his head when asked if he is experiencing any pain Exam Vital Signs Temp Pulse Resp BP Pulse Ox O2 Del Method FiO2 98.5 F 80 15 142/91 H 95 Room Air 96 05/22/24 12:37 05/22/24 12:37 05/22/24 12:37 05/22/24 12:37 05/22/24 12:37 05/22/24 12:37 05/22/24 08:52 Narrative Exam Gen: Alert, oriented to self only, responsive to questions, follows commands, in no acute distress HEENT: Mild right-sided facial droop, speech severely slurred CVS: normal S1 and S2. RRR. No M/R/G. Resp: CTA B/L. No rhonchi, rales, crackles or wheezing. Abd: soft, non-tender, non-distended. BS+ in all 4 quadrants. MSK: Good ROM in BUE & BLE. No edema or rash. Neuro: Right-sided facial droop noted, patient moves all extremities spontaneously and on command, muscle strength intact, sensation intact Psych: appropriate mood and affect. NIH Stroke Scale 1A: Level of Consciousness - Arouses to minor stimulation?+ 1 1B: Ask Month and Age - Could Not Answer Either Question Correctly?+ 2 1C: Blink Eyes & Squeeze Hands - Performs Both Tasks?+ 0 2: Test Horizontal Extraocular Movements - Normal?+ 0 3: Test Visual Boateng - No Visual Loss?+ 0 4: Test Facial Palsy (Use Grimace if Obtunded) - Minor paralysis (flat nasolabial fold, smile asymmetry)?+ 1 5A: Test Left Arm Motor Drift - No Drift for 10 Seconds?+ 0 5B: Test Right Arm Motor Drift - No Drift for 10 Seconds?+ 0 6A: Test Left Leg Motor Drift - No Drift for 5 Seconds?+ 0 6B: Test Right Leg Motor Drift - Drift, but doesn't hit bed?+ 1 7: Test Limb Ataxia (FNF/Heel-Rhodes) - No Ataxia?+ 0 8: Test Sensation - Normal; No sensory loss?+ 0 9: Test Language/Aphasia - Mild-Moderate Aphasia: Some Obvious Changes, Without Significant Limitation?+ 1 10: Test Dysarthria - Mild-Moderate Dysarthria: Slurring but can be understood?+ 1 11: Test Extinction/Inattention - No abnormality?+ 0 NIHSS Score:?7 Results: Labs 05/23/24 05:23 05/23/24 05:23 Labs: Short CBC 05/22/24 Range/Units 09:03 WBC 8.5 (3.8-10.6) Thou/mm3 Hgb 13.9 (13.5-16.0) g/dL Hct 41.1 (41.0-53.0) % Plt Count 122 L (140-440) Thou/mm3 BMP 05/22/24 09:03 Sodium 145 Potassium 3.8 Chloride 109 H Carbon Dioxide 31.9 H BUN 15 Creatinine 1.2 Glucose 120 H Calcium 9.5 Cardiac Enzymes 05/22/24 Range/Units 09:03 Troponin I < 0.020 (0.0-0.045) ng/mL Liver Function 05/22/24 Range/Units 09:03 Total Bilirubin 0.8 (0.3-1.2) mg/dL AST 16 (0-34) U/L ALT 14 (10-49) U/L Alkaline Phosphatase 105 (46-116) U/L Albumin 4.1 (3.4-4.8) gm/dL Urine 05/22/24 Range/Units 08:04 Urine Color Yellow (Lt Yel-Yel) Urine Clarity Hazy (Clear/Hazy) Urine pH 5.5 (5.0-7.0) Ur Specific [place] 1.027 (1.001-1.035) Urine Protein Trace (Neg - Trace) Urine Glucose (UA) Negative (Negative) Quality Measures Quality Measures stroke Suspected type of Stroke: Non Acute Last known well (date): 05/21/24 Last known well (time): 19:00 Tenecteplase given: Reason(s) Tenecteplase not given: Outside the time window not given Rehab services: PT evaluation ordered and Speech Language Pathology eval ordered VTE Prophylaxis: pharmaceutical Antithrombotic by day 2:: ordered Statin ordered: not ordered Anticoagulation ordered for A-fib or flutter (current or hx): not indicated Advance care planning discussed with:: patient Medications Home Medications and Allergies Home Medications ?Medication ?Instructions ?Recorded ?Confirmed ?Type carvedilol 3.125 mg tablet 3.125 mg PO BID 05/22/24 05/22/24 History donepezil 10 mg tablet 10 mg PO HS 05/22/24 05/22/24 History losartan 100 1 tab PO DAILY 05/22/24 05/22/24 History mg-hydrochlorothiazide 12.5 mg tablet memantine 5 mg tablet 5 mg PO BID 05/22/24 05/22/24 History pantoprazole 40 mg tablet,delayed 40 mg PO DAILY 05/22/24 05/22/24 History release quetiapine 25 mg tablet 25 mg PO HS 05/22/24 05/22/24 History sertraline 100 mg tablet 100 mg PO DAILY 05/22/24 05/22/24 History Allergies Allergy/AdvReac Type Severity Reaction Status Date / Time No Known Allergies Allergy Verified 05/22/24 11:30 Visit Medications Acetaminophen (Acetaminophen 325 Mg Tablet) 650 mg PO Q6H PRN PRN Reason: Fever >101.5 Stop: 06/21/24 11:45 Acetaminophen (Acetaminophen 325 Mg Tablet) 650 mg PO Q6H PRN PRN Reason: PAIN SCALE 1-3 (mild Stop: 06/21/24 11:45 Hydrocodone Bitart/Acetaminophen (Hydrocodone/Apap 5/325 Tablet) 1 tab PO Q6HR PRN PRN Reason: PAIN SCALE 4-6 (Moderate Stop: 05/27/24 11:45 Aspirin (Aspirin Ec 81 Mg Tabec) 81 mg PO QDAY [facility] Stop: 06/22/24 08:59 Heparin Sodium (Porcine) (Heparin Sod Inj 5000 Unit/Ml Vial) 5,000 unit SC Q12H [facility] Stop: 06/05/24 11:59 Last Admin: 05/22/24 12:40 Dose: Not Given Ceftriaxone Sodium/Dextrose (Rocephin/D5w 1gm Iv Premix) 50 mls @ 100 mls/hr IV QDAY [facility] Stop: 05/30/24 08:59 Morphine Sulfate (Morphine Sulf Inj 10 Mg/Ml Vial) 1 mg IVP Q4H PRN PRN Reason: PAIN SCALE 7-10 (Severe Stop: 05/27/24 11:45 Ondansetron HCl (Ondansetron Inj 2 Mg/Ml Inj 2 Ml) 4 mg IV Q6H PRN; Protocol PRN Reason: NAUSEA OR VOMITING Stop: 06/21/24 11:45 Discontinued Medications Aspirin (Aspirin Ec 81 Mg Tabec) 81 mg PO X1 ONE Stop: 05/22/24 11:25 Last Admin: 05/22/24 11:31 Dose: Not Given Ceftriaxone Sodium/Dextrose (Rocephin/D5w 1gm Iv Premix) 50 mls @ 100 mls/hr IV X1 ONE Stop: 05/22/24 11:47 Last Infusion: 05/22/24 12:20 Dose: Infused Ondansetron HCl (Ondansetron Inj 2 Mg/Ml Inj 2 Ml) 4 mg IV Q4HR PRN PRN Reason: NAUSEA OR VOMITING Stop: 06/21/24 08:51 Assessment & Plan Plan Mr. Meir Enrique is an 84y/o male with a history of hypertension, dementia, prior strokes found on imaging but not known to patient's family who presented to the ED on 05/22/2024 for acute-onset dysarthria and facial droop. Patient himself is unable to answer questions verbally, so history taken from daughter and at bedside. Daughter states that yesterday patient was overall at his neurological baseline in which he can speak clearly without issue, move all extremities, and with some assistance can move from bed into a wheelchair to wheel himself around the house. Patient typically undergoes frequent physical therapy at home to strengthen his extremities, but daughter states that yesterday, he was unwilling to participate in physical therapy due to fatigue. and daughter had seen patient at 3AM this morning, at which time patient was restless but at his neurological baseline still. This morning at 7AM, family noted slurred speech with facial droop. They could not understand any of his speech and he was unable to move from bed, so EMS was called and brought pt into the ED. #CVA Rule Out #Hx of Old Strokes Initial CT head negative for any acute hemorrhage, midline shift, or mass effect, but positive for old infarcts - MRI head without contrast ordered to further evaluate acute intracranial changes - Transthoracic echocardiogram with bubble study ordered, pending results - Lipid panel, A1c, TSH ordered for further evaluation of acute neurological deficits - Admitted to telemetry - PT/OT ordered - Neuro checks q4h - Swallow screening ordered - Keep head of bed 30 degrees - Continue aspirin 81mg PO qd - Ensure euglycemia and avoid hyperthermia via prn acetaminophen #Essential Hypertension Chronic condition present prior to patient's admission. Initial BP 124/85 raised to 173/116 later in the day. Per teleneurology recommendations, will tolerate hypertension to an extent due to concern for end-organ damage from low perfusion. Will intervene if SBP >220 or DBP >120 - Continue to monitor and allow permissive hypertension to parameters above - Give labetalol 100mg PO q6h prn SBP >220mmHg or DBP >120mmHg #Dementia Chronic condition present prior to patient's admission. Due to dysarthria unable to assess patient's baseline speech capability or orientation, will continue to monitor in coming days if speech improves - Start memantine 5mg BID in AM - Continue to monitor daily - Lights on and blinds open during the day, minimize interruptions at night Health maintenance: Disposition: Telemetry Diet: NPO, pending swallow screen GI prophylaxis: None indicated DVT prophylaxis: Heparin 5,000 subQ Code: Full code Case disclosed with Attending Dr. Napoles and my seniors Dr. Hooker and Dr. Joyce. Jose Eason PGY1 Attending Provider Attestation/Addendum I have examined the patient, reviewed labs and imaging findings, discussed the case with the resident(s), and reviewed entered orders. I agree with the plan of care as outlined in this note, with these additional summaries/recommendations: Patient is a 84-year-old male with a medical history of primary hypertension, GERD, dementia who presented to [facility] emergency department on 05/23/2024 with chief complaint of difficulty speaking and facial droop. CT head on admission was Negative for acute hemorrhage, mass effect or midline shift Multiple infarcts as above, which appear old. Teleneurology was consulted and recommended admission for CVA and start aspirin. Order MRI brain, PT consult, swallow evaluation, TSH, A1c, lipid panel. Continue home medications. Dr. Napoles
--- NOTE | 2024-05-22 16:29 | PC.NURSE ---
PT IN MRI
--- NOTE | 2024-05-22 21:10 | PC.NURSE ---
REPORT GIVEN TO IRENA LOMELI. ALL QUESTIONS ASKED AND ANSWERED. STAFF TRANSFERRED PATIENT TO FLOOR, NO DISTRESS NOTED.
--- NOTE | 2024-05-22 22:59 | PC.NURSE ---
NIHSS-10, per daughter patient at baseline is axox2, and has lower extremity weakness.
[2024-05-22] MEDS: HEPARIN SOD INJ 5000 UNIT/ML VIAL SC (23:44)
[2024-05-23] VITALS (9 sets, daily range): BP systolic 103–151; BP diastolic 72–94; PULSE 79–92; RESP 15–22; TEMP 36.2–36.8; O2SAT 95–96; BMI 12.0
--- NOTE | 2024-05-23 00:12 | PC.NURSE ---
Per family, patient is DNR/DNI. Daughter will bring in paper work tomorrow. Bernardino NAQVI aware.
[2024-05-23 05:59] LABS: Basophils % (Auto) 1 % (0-2.5); Eosinophils # (Auto) 0.1 Thou/mm3 (0.0-0.5); Eosinophils % (Auto) 2 % (0-10); Hematocrit 38.8 % (41.0-53.0); Immature Granulocytes % (Auto) 0 % (0-0); Immature Granulocytes Auto 0.03 Thou/mm3 (0.00-0.00); Lymphocytes # (Auto) 1.7 Thou/mm3 (1.0-4.8); Lymphocytes % (Auto) 25 % (10-50); Mean Corpuscular HGB Conc 33.5 g/dl (31.0-37.0); Mean Corpuscular Hemoglobin 32.5 pg (25.0-35.0); Mean Corpuscular Volume 97 fL (80-100); Monocytes # (Auto) 0.5 Thou/mm3 (0.0-0.8); Monocytes % (Auto) 8 % (0-12); Neutrophils # (Auto) 4.4 Thou/mm3 (1.8-7.7); Neutrophils % (Auto) 64 % (37-80); Nucleated Red Blood Cell % 0 /100 WBC (0); Platelet Count 122 Thou/mm3 (140-440); RDW Standard Deviation 51.8 fL (35.1-43.9); White Blood Count 6.8 Thou/mm3 (3.8-10.6)
[2024-05-23 06:06] LABS: Glucose Estimated Average 105 mg/dL (80-131); Hemoglobin A1C 5.3 % Hgb (4.8-6.0)
[2024-05-23 06:35] LABS: Alanine Aminotransferase 13 U/L (10-49); Albumin, Serum 3.9 gm/dL (3.4-4.8); Albumin/Globulin Ratio 1.8 (1.2-2.2); Alkaline Phosphatase 100 U/L (46-116); Anion Gap 6 (7-16); Aspartate Amino Transferase 17 U/L (0-34); BUN/Creatinine Ratio 17 Ratio (12-20); Bilirubin,Total 0.8 mg/dL (0.3-1.2); Blood Urea Nitrogen 17 mg/dL (9-23); Calcium 9.4 mg/dL (8.3-10.6); Calcium (Corrected) 9.5 mg/dL (8.5-10.1); Carbon Dioxide 31.3 mMol/L (20.0-31.0); Cardiac Risk Estimate 6.3 RATIO (4.0-6.7); Chloride 109 mMol/L (98-107); Cholesterol 164 mg/dL (132-200); Estimated Creatinine Clearance 59.3 mL/min (>60); Globulin 2.2 gm/dL (2.3-3.5); Glucose 116 mg/dL (74-106); HDL Cholesterol 26 mg/dL (40-60); LDL Cholesterol,Calculated 108 mg/dL (0-130); Magnesium 2.1 mg/dL (1.6-2.6); Osmolality,Calculated 293 (275-295); Phosphorous 3.9 mg/dL (2.4-5.1); Potassium 3.4 mMol/L (3.4-5.1); Sodium 146 mMol/L (136-145); Total Protein 6.1 gm/dL (5.7-8.2); Triglycerides 149 mg/dL (30-150); eGFR > 60 See Note
[2024-05-23] MEDS: cefTRIAXone/D5w 1gm IV premix 50 ML IV (08:53)
[2024-05-23] MEDS: ASPIRIN EC 81 MG TABEC PO (08:53)
--- NOTE | 2024-05-23 09:51 | PCS.ST ---
Speech/Language Evaluation and Swallowing Evaluation completed. See reports for details. Downgrade diet to chopped. ST will provide services for acute communication deficits.
--- NOTE | 2024-05-23 10:39 | XR_ITS ---
Examination: Venous duplex lower extremity sonogram, bilateral. Date and time of exam: May 23, 2024 1344 hours INDICATIONS: Onset bilateral leg pain beginning yesterday Technique: Multiple sonographic images of the deep venous system have been obtained. B-mode/2-D grayscale imaging of vascular structures and Doppler spectral analysis (waveforms) and color performed Both legs are examined. Findings: Positive for deep vein thrombus involving the entire deep venous system right lower extremity Positive for deep vein thrombus involving the left common femoral vein IMPRESSION: Positive for acute deep vein thrombus involving the entire deep venous system right lower extremity Positive for acute DVT left common femoral vein
[2024-05-23] MEDS: POTASSIUM CHLORIDE 20 mEq TABCR PO (11:14)
--- NOTE | 2024-05-23 11:31 | PC.NURSE ---
IN TALKING WITH FAMILY PATIENT'S RT HAND CONTRACTURE DUE TO ARTHRITIS. PATIENT HAS BEEN BED BOUND THE LAST 2 MONTHS DUE TO DEMENTIA.
--- NOTE | 2024-05-23 13:07 | PC.SS ---
[facility] notified by PT staff request for hospital bed and home health (PT & OT). Patient's family requesting referral for [facility]. Update submitted to assigned [facility].
--- NOTE | 2024-05-23 15:17 | XR_ITS ---
Examination: MRI brain with intravenous contrast TECHNIQUE: Multiple axial sagittal coronal brain MRI images post intravenous ministration 17 cc gadolinium Exam date and time: May 23, 2024 at 1750 hours INDICATIONS: Onset slurred speech right facial droop weakness in the right lower extremity beginning today, clinical diagnosis intracranial vasculitis FINDINGS: Patient motion degrades scan image quality Ventricles are not enlarged No mass effect upon the ventricular system is noted Pituitary is not enlarged No pituitary macroadenoma is depicted There is no displacement of the optic chiasm IMPRESSION: Study is significantly limited secondary to patient motion There are no precontrast diffusion-weighted images to assess for acute ischemic change Consider brain MRI MRA without contrast follow-up in view the patient's symptoms of slurred speech right facial droop to assess for acute ischemic change and to assess the intracranial vasculature for vasculitis
--- NOTE | 2024-05-23 15:53 | PC.SS ---
Addendum entered by BEBETO Ceron 05/23/24 16:00: Received call from patient's daughter, Cindy Anderson, she indicated [facility] as preferred SNF. Original Note: Initial assessment: This is 84 year old male admitted for lower GI bleed. Patient not able to provide participate in assessment, information obtained by patient's spouse Gregoria and patient's daughter Cindy. Patient lives at home with spouse, Gregoria Anderosn. Confirmed demographic information. Patient's spouse, Gregoria was identified as the patient's medical surrogate decision maker. Patient has been non ambulatory for the past two months, requires assistance with transfer and completing ADL's. Patient has a wheelchair and electric bed at home. Patient's PCP is Dr.Vinay Willis. Pharmacy of choice is [facility] in [place]. The discharge plan was discussed, and the family wants SNF. No preferred at this time. Notified family a facility would need to be selected as the patient will require insurance authorization for SNF. Patient's daughter, Cindy to follow up on preferred facility. payroll services analyst to remain available to address further concerns. D/c plan: SNF Next of kin: spouse, Gregoria Anderson
--- NOTE | 2024-05-23 16:01 | PC.SS ---
Rounding note: pending teleneuro recommendations and PT eval.
--- NOTE | 2024-05-23 16:04 | ESPR_ITS ---
<Statement entered by Sisi Joyce MD - 05/24/24 06:02> I discussed with and supervised the internal investigator physician who took care of this patient. I personally saw and examined the patient and discussed the assessment and plan with the entire medicine team, including my attending Dr. Napoles, I agree with most of the assessment and plan as documented below Siis Joyce M.D. PGY-2 Documentation for date of: 05/23/24 Subjective Subjective Interval history: Mr. Meir Enrique is an 84y/o male with a history of hypertension, dementia, prior strokes found on imaging but not known to patient's family who presented to the ED on 05/22/2024 for acute-onset dysarthria and facial droop. Patient himself is unable to answer questions verbally, so history taken from daughter and at bedside. Daughter states that yesterday patient was overall at his neurological baseline in which he can speak clearly without issue, move all extremities, and with some assistance can move from bed into a wheelchair to wheel himself around the house. Patient typically undergoes frequent physical therapy at home to strengthen his extremities, but daughter states that yesterday, he was unwilling to participate in physical therapy due to fatigue. and daughter had seen patient at 3AM this morning, at which time patient was restless but at his neurological baseline still. This morning at 7AM, family noted slurred speech with facial droop. They could not understand any of his speech and he was unable to move from bed, so EMS was called and brought pt into the ED. Per daughter, patient has no knowledge of any previous strokes in his past, and has no new changes in medications. He is incontinent of urine at baseline. In the ED, patient was found to have NIHSS 7, slurred speech, right-sided facial droop, slight drift of the right lower extremties. He was not a tPA candidate due to his last well known time being greater than 4.5 hours from his admission to the ED. He was found to be afebrile, normotensive, pulse 85, respirations 19, and spO2 93% on room air. Labs were grossly unremarkable with normal WBC, Hgb 13.9, electrolytes within normal limits, BUN/Cr within normal limits, coagulation studies within normal limits, and AST/ALT within normal limits. He was given one dose of Rocephin and admitted to the floor. 05/23: Several imaging studies performed. CT head negative for acute hemorrhage, mass effect, or midline shift. CTA head/neck grossly unremarkable with no significant stenoses present. MRI brain without contrast positive for multiple acute embolic infarcts in the left occipital and parietal lobes and chronic multi-infarct dementia pattern. Today, patient's speech is still notably slurred but more comprehensible relative to yesterday. He tracks with his eyes and is able to respond to most questions, attempts to follow most commands. Strength 4/5 bilateral upper extremities, noted weakness in right lower extremity. Right facial droop still present, more noticeable when patient is asked to smile or show his teeth. Denies headaches. Teleneurology saw patient today, recommendations given to continue aspirin but hold Plavis due to patient's low NIHSS, order MRI with contrast due to possibility of an intracranial vasculitis being responsible for patient's presentation, considering his multiple thromboembolisms are fairly small. Recommendations also given to order EEG to assess for underlying seizure activity. Doppler U/S of legs ordered to evaluate for thromboembolic source in lower extremities. Still pending echocardiogram read. Exam Vital Signs Temp Pulse Resp BP Pulse Ox O2 Del Method FiO2 97.8 F 90 15 117/79 96 Room Air 96 05/23/24 11:58 05/23/24 11:58 05/23/24 11:58 05/23/24 11:58 11 11:58 05/23/24 11:58 05/23/24 11:58 Narrative Exam Gen: Alert, oriented to self and place, responsive to questions, follows commands, in no acute distress HEENT: Mild right-sided facial droop, speech slurred CVS: normal S1 and S2. RRR. No M/R/G. Resp: CTA B/L. No rhonchi, rales, crackles or wheezing. Abd: soft, non-tender, non-distended. BS+ in all 4 quadrants. MSK: Good ROM in BUE & BLE. No edema or rash. Neuro: Right-sided facial droop noted, patient moves all extremities spontaneously and on command, muscle strength intact across upper extremities and left lower extremity but slightly diminished in right LE, sensation diminished in right lower extremity but intact across the rest of his body, right hand has chronic contracture but still able to squeeze fingers in his palm Psych: appropriate mood and affect. Objective Labs 05/24/24 05:31 05/24/24 05:31 Labs: Laboratory Results - last 24 hr 05/23/24 05:23 WBC 6.8 RBC 4.00 L Hgb 13.0 L Hct 38.8 L MCV 97 MCH 32.5 MCHC 33.5 RDW Std Deviation 51.8 H Plt Count 122 L Neut % (Auto) 64 Lymph % (Auto) 25 [place] % (Auto) 8 Eos % (Auto) 2 Baso % (Auto) 1 Neut # (Auto) 4.4 Lymph # (Auto) 1.7 [place] # (Auto) 0.5 Eos # (Auto) 0.1 Baso # (Auto) 0.0 Immature Gran # (Auto) 0.03 H Absolute Nucleated RBC 0.00 Immature Gran % 0 Nucleated RBC % 0 Sodium 146 H Potassium 3.4 Chloride 109 H Carbon Dioxide 31.3 H Anion Gap 6 L BUN 17 Creatinine 1.0 Estim Creat Clear Calc 59.3 L eGFR > 60 BUN/Creatinine Ratio [address] Glu mg/dL 105 Hemoglobin A1c 5.3 Calculated Osmolality 293 Calcium 9.4 Corrected Calcium 9.5 Phosphorus 3.9 Magnesium 2.1 Total Bilirubin 0.8 AST 17 ALT 13 Alkaline Phosphatase 100 Total Protein 6.1 Albumin 3.9 Globulin 2.2 L Albumin/Globulin Ratio 1.8 Triglycerides 149 Cholesterol 164 LDL Cholesterol, Calc 108 HDL Cholesterol 26 L Cholesterol/HDL Ratio 6.3 TSH 3.50 Quality Measures Quality Measures stroke Suspected type of Stroke: Non Acute Last known well (date): 05/21/24 Last known well (time): 19:00 Tenecteplase given: Reason(s) Tenecteplase not given: Outside the time window not given Rehab services: PT evaluation ordered and Speech Language Pathology eval ordered VTE Prophylaxis: pharmaceutical Antithrombotic by day 2:: ordered Statin ordered: >75 y/o moderate or high intensity dose Anticoagulation ordered for A-fib or flutter (current or hx): not indicated Advance care planning discussed with:: patient Assessment & Plan Assessment Current Active Medications: Generic Name Dose Route Start Last Admin Trade Name Freq PRN Reason Stop Dose Admin Acetaminophen 650 mg 05/22/24 11:46 Acetaminophen 325 Mg Tablet PO 06/21/24 11:45 Q6H PRN Fever >101.5 Acetaminophen 650 mg 05/22/24 11:46 Acetaminophen 325 Mg Tablet PO 06/21/24 11:45 Q6H PRN PAIN SCALE 1-3 (mild Hydrocodone Bitart/Acetaminophen 1 tab 05/22/24 11:46 Hydrocodone/Apap 5/325 Tablet PO 05/27/24 11:45 Q6HR PRN PAIN SCALE 4-6 (Moderate Aspirin 81 mg 05/23/24 09:00 05/23/24 08:53 Aspirin Ec 81 Mg Tabec PO 06/22/24 08:59 81 mg QDAY DULCE Administration Atorvastatin Calcium 80 mg 05/23/24 21:00 Atorvastatin Calcium 20 Mg Tablet PO 06/22/24 20:59 [facility] Carvedilol 3.125 mg 05/23/24 21:00 Carvedilol 3.125 Mg Tablet PO 06/22/24 20:59 BID DULCE Donepezil HCl 10 mg 05/23/24 21:00 Donepezil Hcl 5 Mg Tablet PO 06/22/24 20:59 [facility] Heparin Sodium (Porcine) 5,000 unit 05/23/24 21:00 Heparin Sod Inj 5000 Unit/Ml Vial SC 06/05/24 11:59 Q12HR [facility] Hydrochlorothiazide 12.5 mg 05/24/24 09:00 Hydrochlorothiazide 12.5 Mg Capsule PO 06/23/24 08:59 QDAY [facility] Ceftriaxone Sodium/Dextrose 50 mls @ 100 mls/hr 05/23/24 09:00 05/23/24 08:53 Rocephin/D5w 1gm Iv Premix IV 05/30/24 08:59 100 mls/hr QDAY [facility] Administration Labetalol HCl 100 mg 05/22/24 16:09 Labetalol 100 Mg Tablet PO 06/21/24 16:08 Q6H PRN If SBP>220mmHg or DBP >120mmHg Losartan Potassium 100 mg 05/24/24 09:00 Losartan Potassium 25 Mg Tablet PO 06/23/24 08:59 QDAY DULCE Memantine 5 mg 05/23/24 21:00 Memantine Hcl 5 Mg Tablet PO 06/22/24 20:59 BID DULCE Morphine Sulfate 1 mg 05/22/24 11:46 Morphine Sulf Inj 10 Mg/Ml Vial IVP 05/27/24 11:45 Q4H PRN PAIN SCALE 7-10 (Severe Ondansetron HCl 4 mg 05/22/24 11:46 Ondansetron Inj 2 Mg/Ml Inj 2 Ml IV 06/21/24 11:45 Q6H PRN NAUSEA OR VOMITING Protocol Pantoprazole Sodium 40 mg 05/24/24 09:00 Pantoprazole 40 Mg Tablet PO 06/23/24 08:59 DAILY DULCE Quetiapine Fumarate 25 mg 05/23/24 21:00 Quetiapine Fumarate 25 Mg Tablet PO 06/22/24 20:59 HS DULCE Sertraline HCl 100 mg 05/24/24 09:00 Sertraline Hcl 25 Mg Tablet PO 06/23/24 08:59 DAILY DULCE Plan Mr. Meir Enrique is an 84y/o male with a history of hypertension, dementia, prior strokes found on imaging but not known to patient's family who presented to the ED on 05/22/2024 for acute-onset dysarthria and facial droop. Patient himself is unable to answer questions verbally, so history taken from daughter and at bedside. Daughter states that yesterday patient was overall at his neurological baseline in which he can speak clearly without issue, move all extremities, and with some assistance can move from bed into a wheelchair to wheel himself around the house. Patient typically undergoes frequent physical therapy at home to strengthen his extremities, but daughter states that yesterday, he was unwilling to participate in physical therapy due to fatigue. and daughter had seen patient at 3AM this morning, at which time patient was restless but at his neurological baseline still. This morning at 7AM, family noted slurred speech with facial droop. They could not understand any of his speech and he was unable to move from bed, so EMS was called and brought pt into the ED. 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 CTA head/neck grossly unremarkable with no significant stenoses present. MRI brain without contrast positive for multiple acute embolic infarcts in the left occipital and parietal lobes and chronic multi-infarct dementia pattern. - MRI head without contrast head results as above - MRI head with contrast ordered for evaluation of possible intracranial vasculitis per teleneurology Dr. Brewer's recommendations, f/u on results - EEG ordered per teleneuro for evaluation of underlying seizure activity - Transthoracic echocardiogram with bubble study ordered, pending results - Doppler U/S ordered for lower extremities to evaluate possibility of thromboembolism sourced from DVT - Lipid panel, A1c, TSH all within normal limits - Admitted to telemetry - PT/OT ordered - Neuro checks q4h - Swallow screening passed, started on dysphagia 3 diet - Keep head of bed 30 degrees - Continue aspirin 81mg PO qd, holding plavix at this time per teleneuro - Ensure euglycemia and avoid hyperthermia via prn acetaminophen #UTI Positive leukocyte esterase on urinalysis on arrival indicating likely UTI - Continue IV Rocephin (Course: 05/23-05/30) - Pending urine cultures #Essential Hypertension Chronic condition present prior to patient's admission. Initial BP 124/85 raised to 173/116 later in the day. - Restarted patient's home dose of losartan 100mg PO qd as 24 hour permissive hypertension period post-stroke has ended and patient continues to be hypertensive - Started home dose of Coreg 3.125mg PO BID - Monitor vitals daily #Dementia Chronic condition present prior to patient's admission. Due to dysarthria unable to assess patient's baseline speech capability or orientation, will continue to monitor in coming days if speech improves - Started home dose of memantine 5mg PO BID and donepezil 10mg PO HS - Continue to monitor daily - Lights on and blinds open during the day, minimize interruptions at night #Major Depressive Disorder - Started home dose of quietiapine 25mg PO HS and sertraline 100mg PO qd Health maintenance: Disposition: Telemetry Diet: Dysphagia 3 diet GI prophylaxis: None indicated DVT prophylaxis: Heparin 5,000 subQ Code: Full code Case disclosed with Attending Dr. Napoles and my seniors Dr. Hooker and Dr. Joyce. Jose Eason PGY1 SHANNON discussed with and supervised the internal investigator physician who took care of this patient. I personally saw and examined the patient and discussed the assessment and plan with the entire medicine team, including my attending Dr. Stephan Napoles MD. I agree with the assessment and plan as documented above. Patient interviewed and examined at bediside this AM accompanied by his and daughter. Explained findings of MRI that had been positive for acute embolic stroke with distribution in the left occipital and left parietal lobes. WIll continue ASA and high intensity statin. Patient's and daughter both noted that the patient had been bed bound over the last two months. Will order doppler U/S of BL LE's to rule out potential cryptogenic CVA. ECHO pending. Montana Hooker M.D. Internal Medicine PGY-3 Attending Provider Attestation/Addendum I have examined the patient, reviewed labs and imaging findings, discussed the case with the resident(s), and reviewed entered orders. I agree with the plan of care as outlined in this note, with these additional summaries/recommendations: Patient seen at bedside. No acute overnight events. Head CTA showed no LVO. MRI brain revealed multiple embolic type acute infract's left occipital lobe and left parietal lobe plus chronic multi infraction dementia pattern. Teleneurology following. Started on aspirin 81 mg p.o. daily and atorvastatin 80 mg p.o. at bedtime. Patient's MRI findings are concerning for arrhythmia although no evidence on telemetry thus far. Patient would benefit from Holter monitor primary care physician. Appreciate telemetry neuro recs on starting Plavix vs NOAC. LDL 108 and goal less than 70 continue statin. TSH WNL and A1c 5.3%. Patient was seen by physical therapy who recommended home hospital bed, Occupational Therapy and possibly IHSS worker to assist at home. Continue Rocephin for urinary tract infection. Continue donepezil and memantine for history of dementia. Status post permissive hypertension and resume home antihypertensives. Mild hypokalemia and replacement given. Repeat chemistry and hematology panel in AM. Dr. Napoles
--- NOTE | 2024-05-23 16:17 | ESCONSULT_ITS ---
Tele Neuro Consultation Consultation Date 05/23/24 Most Recent Vital Signs Last Vital Signs Temp 97.9 F 05/23/24 16:00 Pulse 86 05/23/24 16:00 Resp 18 05/23/24 16:00 BP 103/72 05/23/24 16:00 Pulse Ox 95 05/23/24 16:00 O2 Del Method Room Air 05/23/24 16:00 FiO2 96 05/23/24 11:58 Laboratory-Coagulation Panel PT 11.4 Seconds (9.0-12.2) 05/22/24 09:03 INR 1.0 (0.9-1.3) 05/22/24 09:03 APTT 25.9 Seconds (22.0-36.0) 05/22/24 09:03 Consultation Narrative [facility] TeleNeurology Consult Services Routine Consult Follow-Up Patient Name:???Meir Anderson Date of :???1940 Identification Number:??? Date of Service:???05/23/2024 14:38:46 Diagnosis?I63.89 - Cerebrovascular accident (CVA) due to other mechanism ([facility]) Impression 84 y/o M with history of HTN, dementia, imaging evidence of prior strokes, presenting to hospital with dysarthria, facial droop, and altered mentation, with initial NIHSS is 7 (unable to answer orientation questions, right facial droop, dysarthria, right leg drift, potentially aphasia in that he is unable to read sentences or describe picture). NCHCT shows multiple chronic infarcts, no acute abnormalities. Platelets 122k LDL 108 TSH 3.5 Exam: Able to say name, repetition largely in tact, follows most commands, right facial droop. MRI: wmd, volume loss, numerous prior strokes, scattered acute infarcts, left parietal, occipital CTA head/neck: no significant extra or intracranial stenosis, TTE: pending MRI with acute left parietal and occipital multifocal infarcts, superimposed on severe confluent white matter disease. 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 Likely this clinical picture is the result of acute infarcts on a background of severe microvascular disease, but will obtain contrasted MRI to ensure no inflammatory component as well as EEG given severity of his exam and fluctuations. RECS: - MRI Brain w/wo - rEEG - Aspirin 81mg monotherapy - TTE pending - Telemetry - Goal LDL < 70 - Goal HbA1c < 7% - patient monitor on discharge unless afib capured Our recommendations are outlined below Nursing Recommendations :IV Fluids, avoid dextrose containing fluids, Maintain euglycemiaNeuro checks q4 hrs x 24 hrs and then per shiftHead of bed 30 degreesContinue with Telemetry Consultations :Recommend Speech therapy if failed dysphagia screenPhysical therapy/Occupational therapy Disposition :Neurology will follow Subjective pending TTE Hospital Course Per stroke alert 05/22: Patient was brought by EMS for symptoms of facial droop, dysarthria, AMS. History is provided by EMS. Patient himself unable to provide history due to difficulty with articulation and altered mentation. Patient does reportedly have baseline history of dementia. LKN as per patient's daughter was around 7 PM last night. Throughout the night, he apparently had been restless and was pacing, which is abnormal. When she checked in on him around 7 AM, he was noted to have dysarthria, facial droop and altered mentation. EMS was activated, and he was taken to ER for further evaluation. There is no family at the bedside at this time, no further details immediately available. ? Examination 1A: Level of Consciousness - Arouses to minor stimulation?+ 1 1B: Ask Month and Age - Could Not Answer Either Question Correctly?+ 2 1C: Blink Eyes & Squeeze Hands - Performs Both Tasks?+ 0 2: Test Horizontal Extraocular Movements - Normal?+ 0 3: Test Visual Boateng - No Visual Loss?+ 0 4: Test Facial Palsy (Use Grimace if Obtunded) - Minor paralysis (flat nasolabial fold, smile asymmetry)?+ 1 5A: Test Left Arm Motor Drift - No Drift for 10 Seconds?+ 0 5B: Test Right Arm Motor Drift - No Drift for 10 Seconds?+ 0 6A: Test Left Leg Motor Drift - No Drift for 5 Seconds?+ 0 6B: Test Right Leg Motor Drift - Drift, but doesn't hit bed?+ 1 7: Test Limb Ataxia (FNF/Heel-Rhodes) - No Ataxia?+ 0 8: Test Sensation - Normal; No sensory loss?+ 0 9: Test Language/Aphasia - Mild-Moderate Aphasia: Some Obvious Changes, Without Significant Limitation?+ 1 10: Test Dysarthria - Mild-Moderate Dysarthria: Slurring but can be understood?+ 1 11: Test Extinction/Inattention - No abnormality?+ 0 NIHSS Score:?7 NIHSS Free Text :?-states month is August -doesn't know age -right lower facial droop -able to name objects, but difficulty reading sentences and describing picture scene ? This consult was conducted in real time using interactive audio and video technology. Patient was informed of the technology being used for this visit and agreed to proceed. Patient located in hospital and provider located at home/office setting. Telehealth Neurology consultation was provided. I spent minutes providing telehealth care. This includes time spent for face to face visit via telemedicine, review of medical records, imaging studies and discussion of findi ngs with providers, the patient and/or family. Dr Concetta Brewer [facility] For Inpatient follow-up with [facility] physician please call [facility] at . As we are not an outpatient service for any post hospital discharge needs please contact the hospital for assistance. If you have any questions for the [facility] physicians or need to reconsult for clinical or diagnostic changes please contact us via [facility] at ? ?
[2024-05-23] MEDS: MEMANTINE HCL 5 MG TABLET PO (20:19)
[2024-05-23] MEDS: DONEPEZIL HCL 5 MG TABLET 10 MG PO (20:19)
[2024-05-23] MEDS: ATORVASTATIN CALCIUM 20 MG TABLET 80 MG PO (20:19)
[2024-05-23] MEDS: QUEtiapine FUMARATE 25 MG TABLET PO (20:19)
[2024-05-23] MEDS: carVEDILOL 3.125 MG TABLET PO (20:19)
[2024-05-23] MEDS: HEPARIN SOD INJ 5000 UNIT/ML VIAL SC (20:24)
[2024-05-24] VITALS (10 sets, daily range): BP systolic 107–151; BP diastolic 77–89; PULSE 60–86; RESP 17–23; TEMP 36.1–36.7; O2SAT 92–97
[2024-05-24 06:03] LABS: Eosinophils # (Auto) 0.2 Thou/mm3 (0.0-0.5); Eosinophils % (Auto) 3 % (0-10); Immature Granulocytes % (Auto) 0 % (0-0); Mean Corpuscular Hemoglobin 32.1 pg (25.0-35.0); Mean Corpuscular Volume 97 fL (80-100); Monocytes # (Auto) 0.4 Thou/mm3 (0.0-0.8); Monocytes % (Auto) 8 % (0-12); Neutrophils % (Auto) 57 % (37-80); Nucleated Red Blood Cell % 0 /100 WBC (0)
[2024-05-24 06:05] LABS: Basophils # (Auto) 0.1 Thou/mm3 (0.0-0.2); Basophils % (Auto) 1 % (0-2.5); Hematocrit 41.2 % (41.0-53.0); Hemoglobin 13.6 g/dL (13.5-16.0); Immature Granulocytes Auto 0.02 Thou/mm3 (0.00-0.00); Lymphocytes # (Auto) 1.7 Thou/mm3 (1.0-4.8); Lymphocytes % (Auto) 31 % (10-50); Neutrophils # (Auto) 3.1 Thou/mm3 (1.8-7.7); Platelet Count 133 Thou/mm3 (140-440); RDW Standard Deviation 52.4 fL (35.1-43.9); Red Blood Count 4.24 Miln/mm3 (4.50-5.90); White Blood Count 5.5 Thou/mm3 (3.8-10.6)
[2024-05-24 06:41] LABS: Alanine Aminotransferase 17 U/L (10-49); Albumin, Serum 4.1 gm/dL (3.4-4.8); Albumin/Globulin Ratio 1.8 (1.2-2.2); Alkaline Phosphatase 105 U/L (46-116); Anion Gap 4 (7-16); Aspartate Amino Transferase 20 U/L (0-34); BUN/Creatinine Ratio 18 Ratio (12-20); Bilirubin,Total 0.9 mg/dL (0.3-1.2); Blood Urea Nitrogen 18 mg/dL (9-23); Calcium 9.7 mg/dL (8.3-10.6); Calcium (Corrected) 9.7 mg/dL (8.5-10.1); Carbon Dioxide 32.3 mMol/L (20.0-31.0); Chloride 109 mMol/L (98-107); Estimated Creatinine Clearance 59.5 mL/min (>60); Globulin 2.3 gm/dL (2.3-3.5); Glucose 113 mg/dL (74-106); Osmolality,Calculated 291 (275-295); Potassium 4.1 mMol/L (3.4-5.1); Sodium 145 mMol/L (136-145); Total Protein 6.4 gm/dL (5.7-8.2); eGFR > 60 See Note
[2024-05-24] MEDS: LOSARTAN POTASSIUM 25 MG TABLET 100 MG PO (08:30)
[2024-05-24] MEDS: SERTRALINE HCL 25 MG TABLET 100 MG PO (08:31)
[2024-05-24] MEDS: MEMANTINE HCL 5 MG TABLET PO ×2 (08:31→20:23)
[2024-05-24] MEDS: PANTOPRAZOLE 40 MG TABLET PO (08:31)
[2024-05-24] MEDS: carVEDILOL 3.125 MG TABLET PO ×2 (08:31→20:22)
[2024-05-24] MEDS: hydroCHLOROthiazide 12.5 MG CAPSULE PO (08:32)
[2024-05-24] MEDS: cefTRIAXone/D5w 1gm IV premix 50 ML IV (08:32)
[2024-05-24] MEDS: ASPIRIN EC 81 MG TABEC PO (08:32)
[2024-05-24] MEDS: HEPARIN SOD INJ 5000 UNIT/ML VIAL SC (08:33)
[2024-05-24 09:01] LABS: Partial Thromboplastin Time 27.1 Seconds (22.0-36.0)
[2024-05-24] MEDS: Heparin/D5w 25K 250 ML Ivpb 25,000 UNIT/250 ML BAG 16.003 UNIT IV (09:58)
--- NOTE | 2024-05-24 10:08 | PC.NURSE ---
HEPARIN 5.000 UNITS GIVEN THIS AM, MARY HOLCOMB 1800 UNITS WITN 7000 UNITS IV MARICRUZ, CALLED DR. BOWLES AND MADE AWARE. NEW ORDER TO GIVE 2000 UNITS TO EQUAL 7000 UNITS WITH SC HEPARIN .
[2024-05-24] MEDS: HEPARIN SOD INJ 5000 UNIT/ML VIAL 2000 UNIT IVP (10:15)
--- NOTE | 2024-05-24 12:43 | PC.SS ---
Addendum entered by BEBETO Ceron 05/24/24 14:33: Contacted [facility] and spoke with Concetta, she is agreeable to accepting the patient and start working on obtaining insurance authorization. Informed her patient has history of dementia, no behaviors charted. Concetta agreeable to book with them. Updated patient's family. Addendum entered by BEBETO Ceron 05/24/24 14:26: Contacted patient's daughter, Cindy to inform her [facility] is unable to accept the patient as not contracted with patient's insurance. She is requesting [facility] now and informed her we would reach out to see if they are agreeable to obtain insurance authorization. Addendum entered by BEBETO Ceron 05/24/24 14:23: PASRR completed. Level 2. Pending review. Original Note: SNF referral sent via [facility]. Pending responses.
--- NOTE | 2024-05-24 15:03 | ESPR_ITS ---
<Statement entered by Sisi Joyce MD - 05/25/24 19:14> I discussed with and supervised the internet ecommerce specialist physician who took care of this patient. I personally saw and examined the patient and discussed the assessment and plan with the entire medicine team, including my attending , I agree with most of the assessment and plan as documented below Sisi Joyce M.D. PGY-2 Documentation for date of: 05/24/24 Subjective Subjective Interval history: Mr. Meir Enrique is an 84y/o male with a history of hypertension, dementia, prior strokes found on imaging but not known to patient's family who presented to the ED on 05/22/2024 for acute-onset dysarthria and facial droop. Patient himself is unable to answer questions verbally, so history taken from daughter and at bedside. Daughter states that yesterday patient was overall at his neurological baseline in which he can speak clearly without issue, move all extremities, and with some assistance can move from bed into a wheelchair to wheel himself around the house. Patient typically undergoes frequent physical therapy at home to strengthen his extremities, but daughter states that yesterday, he was unwilling to participate in physical therapy due to fatigue. and daughter had seen patient at 3AM this morning, at which time patient was restless but at his neurological baseline still. This morning at 7AM, family noted slurred speech with facial droop. They could not understand any of his speech and he was unable to move from bed, so EMS was called and brought pt into the ED. Per daughter, patient has no knowledge of any previous strokes in his past, and has no new changes in medications. He is incontinent of urine at baseline. In the ED, patient was found to have NIHSS 7, slurred speech, right-sided facial droop, slight drift of the right lower extremties. He was not a tPA candidate due to his last well known time being greater than 4.5 hours from his admission to the ED. He was found to be afebrile, normotensive, pulse 85, respirations 19, and spO2 93% on room air. Labs were grossly unremarkable with normal WBC, Hgb 13.9, electrolytes within normal limits, BUN/Cr within normal limits, coagulation studies within normal limits, and AST/ALT within normal limits. He was given one dose of Rocephin and admitted to the floor. 05/23: Several imaging studies performed. CT head negative for acute hemorrhage, mass effect, or midline shift. CTA head/neck grossly unremarkable with no significant stenoses present. MRI brain without contrast positive for multiple acute embolic infarcts in the left occipital and parietal lobes and chronic multi-infarct dementia pattern. Today, patient's speech is still notably slurred but more comprehensible relative to yesterday. He tracks with his eyes and is able to respond to most questions, attempts to follow most commands. Strength 4/5 bilateral upper extremities, noted weakness in right lower extremity. Right facial droop still present, more noticeable when patient is asked to smile or show his teeth. Denies headaches. Teleneurology saw patient today, recommendations given to continue aspirin but hold Plavis due to patient's low NIHSS, order MRI with contrast due to possibility of an intracranial vasculitis being responsible for patient's presentation, considering his multiple thromboembolisms are fairly small. Recommendations also given to order EEG to assess for underlying seizure activity. Doppler U/S of legs ordered to evaluate for thromboembolic source in lower extremities. Still pending echocardiogram read. 05/24: No acute overnight events. Echocardiogram with bubble study negative for PFO, although positive for AFib and LVEF 45-50%. Brain MRI with contrast negative for any further acute findings beyond the thromboembolisms noted on the MRI without contrast yesterday. Venous doppler positive for DVT of left common femoral vein, and for acute DVTs involving the entire deep venous system of the right lower extremity. Currently on aspirin, high-intensity statin, and started heparin drip. EEG taken yesterday, pending results. Patient feels well this morning, speech notably improved. Neurologist Dr. Joyce plans to see today, appreciate recommendations. Exam Vital Signs Temp Pulse Resp BP Pulse Ox O2 Del Method FiO2 97.8 F 78 20 130/87 H 97 Room Air 96 05/24/24 12:00 05/24/24 12:00 05/24/24 12:00 05/24/24 12:00 05/24/24 12:00 05/24/24 12:00 05/23/24 11:58 Narrative Exam Gen: Alert, oriented to self and place, responsive to questions, follows commands, in no acute distress HEENT: Mild right-sided facial droop, speech slurred CVS: normal S1 and S2. RRR. No M/R/G. Resp: CTA B/L. No rhonchi, rales, crackles or wheezing. Abd: soft, non-tender, non-distended. BS+ in all 4 quadrants. MSK: Good ROM in BUE & BLE. No edema or rash. Neuro: Right-sided facial droop noted, patient moves all extremities spontaneously and on command, muscle strength intact across upper extremities and left lower extremity but slightly diminished in right LE, sensation diminished in right lower extremity but intact across the rest of his body, right hand has chronic contracture but still able to squeeze fingers in his palm Psych: appropriate mood and affect. Objective Labs 05/25/24 04:54 05/25/24 04:54 Labs: Laboratory Results - last 24 hr 05/24/24 05:31 WBC 5.5 RBC 4.24 L Hgb 13.6 Hct 41.2 MCV 97 MCH 32.1 MCHC 33.0 RDW Std Deviation 52.4 H Plt Count 133 L Neut % (Auto) 57 Lymph % (Auto) 31 Dauphin % (Auto) 8 Eos % (Auto) 3 Baso % (Auto) 1 Neut # (Auto) 3.1 Lymph # (Auto) 1.7 Dauphin # (Auto) 0.4 Eos # (Auto) 0.2 Baso # (Auto) 0.1 Immature Gran # (Auto) 0.02 H Absolute Nucleated RBC 0.00 Immature Gran % 0 Nucleated RBC % 0 APTT 27.1 Sodium 145 Potassium 4.1 D Chloride 109 H Carbon Dioxide 32.3 H Anion Gap 4 L BUN 18 Creatinine 1.0 Estim Creat Clear Calc 59.5 L eGFR > 60 BUN/Creatinine Ratio 18 Glucose 113 H Calculated Osmolality 291 Calcium 9.7 Corrected Calcium 9.7 Total Bilirubin 0.9 AST 20 ALT 17 Alkaline Phosphatase 105 Total Protein 6.4 Albumin 4.1 Globulin 2.3 Albumin/Globulin Ratio 1.8 Quality Measures Quality Measures stroke Suspected type of Stroke: Non Acute Last known well (date): 05/21/24 Last known well (time): 19:00 Tenecteplase given: Reason(s) Tenecteplase not given: Outside the time window not given Rehab services: PT evaluation ordered and Speech Language Pathology eval ordered VTE Prophylaxis: pharmaceutical Antithrombotic by day 2:: ordered Statin ordered: >75 y/o moderate or high intensity dose Anticoagulation ordered for A-fib or flutter (current or hx): ordered Advance care planning discussed with:: patient Assessment & Plan Assessment Current Active Medications: Generic Name Dose Route Start Last Admin Trade Name Freq PRN Reason Stop Dose Admin Acetaminophen 650 mg 05/22/24 11:46 Acetaminophen 325 Mg Tablet PO 06/21/24 11:45 Q6H PRN Fever >101.5 Acetaminophen 650 mg 05/22/24 11:46 Acetaminophen 325 Mg Tablet PO 06/21/24 11:45 Q6H PRN PAIN SCALE 1-3 (mild Hydrocodone Bitart/Acetaminophen 1 tab 05/22/24 11:46 Hydrocodone/Apap 5/325 Tablet PO 05/27/24 11:45 Q6HR PRN PAIN SCALE 4-6 (Moderate Aspirin 81 mg 05/23/24 09:00 05/24/24 08:32 Aspirin Ec 81 Mg Tabec PO 06/22/24 08:59 81 mg QDAY DULCE Administration Atorvastatin Calcium 80 mg 05/23/24 21:00 05/23/24 20:19 Atorvastatin Calcium 20 Mg Tablet PO 06/22/24 20:59 80 mg HS DULCE Administration Carvedilol 3.125 mg 05/23/24 21:00 05/24/24 08:31 Carvedilol 3.125 Mg Tablet PO 06/22/24 20:59 3.125 mg BID DULCE Administration Donepezil HCl 10 mg 05/23/24 21:00 05/23/24 20:19 Donepezil Hcl 5 Mg Tablet PO 06/22/24 20:59 10 mg HS DULCE Administration Hydrochlorothiazide 12.5 mg 05/24/24 09:00 05/24/24 08:32 Hydrochlorothiazide 12.5 Mg Capsule PO 06/23/24 08:59 12.5 mg QDAY DULCE Administration Ceftriaxone Sodium/Dextrose 50 mls @ 100 mls/hr 05/23/24 09:00 05/24/24 08:32 Rocephin/D5w 1gm Iv Premix IV 05/30/24 08:59 100 mls/hr QDAY DULCE Administration Heparin Sodium/Dextrose 25,000 unit in 250 mls @ 16.003 mls/hr 05/24/24 08:30 05/24/24 09:58 Heparin In D5w Ivpb IV 06/07/24 08:29 18 units/kg/hr .[id number] DULCE 16.003 mls/hr Administration Protocol 18 UNITS/KG/HR Labetalol HCl 100 mg 05/22/24 16:09 Labetalol 100 Mg Tablet PO 06/21/24 16:08 Q6H PRN If SBP>220mmHg or DBP >120mmHg Losartan Potassium 100 mg 05/24/24 09:00 05/24/24 08:30 Losartan Potassium 25 Mg Tablet PO 06/23/24 08:59 100 mg QDAY DULCE Administration Memantine 5 mg 05/23/24 21:00 05/24/24 08:31 Memantine Hcl 5 Mg Tablet PO 06/22/24 20:59 5 mg BID DULCE Administration Morphine Sulfate 1 mg 05/22/24 11:46 Morphine Sulf Inj 10 Mg/Ml Vial IVP 05/27/24 11:45 Q4H PRN PAIN SCALE 7-10 (Severe Ondansetron HCl 4 mg 05/22/24 11:46 Ondansetron Inj 2 Mg/Ml Inj 2 Ml IV 06/21/24 11:45 Q6H PRN NAUSEA OR VOMITING Protocol Pantoprazole Sodium 40 mg 05/24/24 09:00 05/24/24 08:31 Pantoprazole 40 Mg Tablet PO 06/23/24 08:59 40 mg DAILY DULCE Administration Quetiapine Fumarate 25 mg 05/23/24 21:00 05/23/24 20:19 Quetiapine Fumarate 25 Mg Tablet PO 06/22/24 20:59 25 mg HS DULCE Administration Sertraline HCl 100 mg 05/24/24 09:00 05/24/24 08:31 Sertraline Hcl 25 Mg Tablet PO 06/23/24 08:59 100 mg DAILY DULCE Administration Plan Mr. Meir Enrique is an 84y/o male with a history of hypertension, dementia, prior strokes found on imaging but not known to patient's family who presented to the ED on 05/22/2024 for acute-onset dysarthria and facial droop. Patient himself is unable to answer questions verbally, so history taken from daughter and at bedside. Daughter states that yesterday patient was overall at his neurological baseline in which he can speak clearly without issue, move all extremities, and with some assistance can move from bed into a wheelchair to wheel himself around the house. Patient typically undergoes frequent physical therapy at home to strengthen his extremities, but daughter states that yesterday, he was unwilling to participate in physical therapy due to fatigue. and daughter had seen patient at 3AM this morning, at which time patient was restless but at his neurological baseline still. This morning at 7AM, family noted slurred speech with facial droop. They could not understand any of his speech and he was unable to move from bed, so EMS was called and brought pt into the ED. 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 CTA head/neck grossly unremarkable with no significant stenoses present. MRI brain without contrast positive for multiple acute embolic infarcts in the left occipital and parietal lobes and chronic multi-infarct dementia pattern. - MRI head without contrast head results as above - MRI head with contrast no acute findings beyond those of the previous scan - EEG ordered per teleneuro for evaluation of underlying seizure activity, f/u on results - Transthoracic echocardiogram with bubble study ordered, negative for PFO but positive for Afib and LVEF 45-50% - Lipid panel, A1c, TSH all within normal limits - Admitted to telemetry - PT/OT ordered - Neuro checks q4h - Swallow screening passed, started on dysphagia 3 diet - Keep head of bed 30 degrees - Continue aspirin 81mg PO qd, holding plavix at this time per teleneuro - Ensure euglycemia and avoid hyperthermia via prn acetaminophen - Continue PT daily - Neurologist Dr. Joyce consulted, appreciate recommendations #DVTs of Lower Extremity As seen on venous doppler, may be potential source of patient's multiple acute intracranial thromboembolisms - Venous doppler positive for DVT in left common femoral vein and for entire deep venous system of right lower extremity - Heparin drip started - Monitor aPTT daily with goal range 60-80s #UTI Positive leukocyte esterase on urinalysis on arrival indicating likely UTI - Continue IV Rocephin (Course: 05/23-05/30) - Urine culture indicating mixed manny, possible contamination #Atrial Fibrillation #HFrEF LVEF 45-50% As found on transthoracic echocardiogram 05/23/[address] Enriquez. Currently rate-controlled. Patient denies any knowledge of previous Afib diagnosis or ever feeling the sensations of palpitations or tachycardia - Continue Coreg 3.125mg BID - Cardiology Dr. Enriquez consulted, appreciate recommendations - Repeat EKG ordered for further evaluation #Essential Hypertension Chronic condition present prior to patient's admission. Initial BP 124/85 raised to 173/116 later in the day. - Continue home dose of losartan 100mg PO qd - Continue home dose of Coreg 3.125mg PO BID - Monitor vitals daily #Dementia Chronic condition present prior to patient's admission. Due to dysarthria unable to assess patient's baseline speech capability or orientation, will continue to monitor in coming days if speech improves - Continue home dose of memantine 5mg PO BID and donepezil 10mg PO HS - Continue to monitor daily - Lights on and blinds open during the day, minimize interruptions at night #Major Depressive Disorder - Continue home dose of quietiapine 25mg PO HS and sertraline 100mg PO qd Health maintenance: Disposition: Telemetry Diet: Dysphagia 3 diet GI prophylaxis: None indicated DVT prophylaxis: Heparin 5,000 subQ Code: Full code Case disclosed with Attending Dr. Napoles and my seniors Dr. Chan and Dr. Joyce. Jose Eason PGY1 Attending Provider Attestation/Addendum I have examined the patient, reviewed labs and imaging findings, discussed the case with the resident(s), and reviewed entered orders. I agree with the plan of care as outlined in this note, with these additional summaries/recommendations: Patient seen at bedside. No acute overnight events. Patient appears to have mild improvement in dysarthria and facial droop today. Teleneurology following and on aspirin plus statin currently. Echocardiogram completed which showed negative PFO although ejection fraction of 45 to 50% and finding of atrial fibrillation. We will discuss starting NOAC with neurology. Pending EEG and continue dysphagia diet. Continue heparin drip for DVTs seen on ultrasound. Continue IV Rocephin for UTI. Patient received new diagnosis of atrial fibrillation and HFrEF. Currently receiving Coreg and we will consult cardiology Dr. Enriquez. Patient has underlying dementia and we will continue memantine and donepezil. Repeat hematology and chemistry panel in AM. Dr. Napoles
--- NOTE | 2024-05-24 15:06 | PC.SS ---
Rounding Note: Cardiology consult is pending. Heparin drip to start today.
--- NOTE | 2024-05-24 15:24 | EKG_ITS ---
[facility] Test Date: 2024-05-24 Pat Name: CLARICE PEDERSEN [facility] Medical Clinic Manager: EVA : 1940 Requested By: Jose Eason Order Number: [id number] Reading MD: Jose Eason Measurements Intervals Mobile Rate: 85 P: -81 WV: 248 QRS: 1 QRSD: 149 T: 129 QT: 439 QTc: 522 Interpretive Statements SINUS RHYTHM WITH FIRST DEGREE AV BLOCK LEFT BUNDLE BRANCH BLOCK Compared to ECG 05/22/2024 09:31:09 No significant changes /store/S0/[id number].pdf
--- NOTE | 2024-05-24 16:07 | PC.NURSE ---
patient has no urine output since this morning, scan bladder. with 350ml retained in bladder, called and made aware. will wait for order.
--- NOTE | 2024-05-24 16:36 | ESCONSULT_ITS ---
HPI Data of Consult Patient: new to practice Consult date: 05/24/24 Requesting Physician: Stephan Napoles MD Admitting Provider: Stephan Napoles MD Attending Provider: Stephan Napoles MD Primary Care Provider: Sudhakar Willis MD Consult Narrative Reason for consult: Afib History of present illness: HISTORY OF PRESENT ILLNESS : Patient has baseline dementia new onset dysarthria and poor historian. Attempts were made to contact both patient's daughter and for further history but was unsuccessful. Majority of history obtained from chart review. Patient is an 84-year-old male with a past medical history of essential hypertension, dementia and old strokes seen on imaging but not known to the patient's family. Presented to the ED on 05/22/2020 for acute onset dysarthria & facial droop. At that time patient was unable to answer questions so history was taken from his daughter and who are at the bedside at the time. Daughter states that yesterday patient was overall at his neurological baseline in which he can speak clearly without issue, move all extremities, and with some assistance can move from bed into a wheelchair to wheel himself around the house. Patient typically undergoes frequent physical therapy at home to strengthen his extremities, but daughter states that yesterday, he was unwilling to participate in physical therapy due to fatigue. and daughter had seen patient at 3AM this morning, at which time patient was restless but at his neurological baseline still. This morning at 7AM, family noted slurred speech with facial droop. They could not understand any of his speech and he was unable to move from bed, so EMS was called and brought pt into the ED. Per daughter, patient has no knowledge of any previous strokes in his past, and has no new changes in medications. He is incontinent of urine at baseline. Unable to assess for any chest pain/pressure or palpitations, SOB, dizziness PND, orthopnea, lower extremity swelling, leg cramps or claudication. Also unable to ascertain any history of cough, fever, chills. Denies any sick contacts or travel history. ED course: BP 124/85, pulse 85, RR 19, SpO2 93% on room air, labs significant for platelet 122, potassium 3.8, CL 99, CO2 31.9, CR 1.2, troponin negative triglycerides 149, cholesterol 164, LDL 108, TSH 3.5. MRI/MRA brain showed multiple embolic acute infarcts in left occipital and left parietal lobe. EKG on admission showed sinus rhythm with first-degree AV block and LBBB, repeat EKG same findings with rate 85. Blood culture positive for GPC. Patient was given 1 dose of Rocephin in the ED. Venous Doppler completed on 05/23 was positive for acute deep vein thrombosis involving entire deep venous system of right lower extremity. Transthoracic echocardiogram completed on 05/22 findings include: Negative bubble study. TTE is suboptimal to rule out PFO or ASD. Consider CLINTON if high clinical suspicion. The aortic root is moderately dilated and the ascending aorta is moderately dilated. 4.4cm. Normal LV size. Low normal function around 45-50%. Mild LVH. Lateral and septal wall dysnchrony noted due to LBBB. Cannot determine diastolic function due to Afib. Normal RV size and function. Trace TR. Mild to moderate AV stenosis, mean gradient 19mmHg. vmax 2.7m/s. KRISSY < 1 sq cm. Probably under estimated AV stenosis due to mildly low EF. Patient was admitted to the floors for stroke workup and cardiology was consulted for A-fib. HOME MEDICATIONS: ? Carvedilol 3.125 mg p.o. twice daily ? Donepezil 10 Mg p.o. at bedtime ? Losartan/HCTZ 1 tab p.o. daily ? Memantine 5 Mg p.o. twice daily ? Pantoprazole 40 Mg p.o. daily ? Quetiapine 25 Mg p.o. at bedtime ? Sertraline 100 Mg p.o. daily cc:: cc: Stephan Napoles MD Review of Systems Review of Systems ROS Unobtainable: unobtainable due to mental status Past Medical History Past Medical History Comments PMH COMMENT: Past medical history: ? Essential hypertension ? Dementia ? History of stroke Past surgical history: Nil Allergies: NKFDA Social history: Unable to obtain if patient has any smoking history, alcohol use or illicit drug use. At home patient's provider uses a wheelchair to get around without assistance but requires assistance with ADLs. Exam Vital Signs Temp Pulse Resp BP Pulse Ox O2 Del Method FiO2 97.8 F 78 20 130/87 H 97 Room Air 96 05/24/24 12:00 05/24/24 12:00 05/24/24 12:00 05/24/24 12:00 05/24/24 12:00 05/24/24 12:00 05/23/24 11:58 Narrative Exam Constitutional Alert, oriented x 1 [person] and comfortable, Elderly male, confused HEENT Vision grossly intact. Patent nares. Trachea midline Respiratory Chest normal on inspection and clear auscultation bilaterally Cardiovascular S1 and S2 audible, RRR. 3/6 ejection systolic murmur heard at Right sternal border with radiation to carotids. No gross JVD. Abdominal Soft,obese and non tender to palpation in all quadrants. BS + Genitourinary No bladder tenderness, no flank pain. Normal to palpation Musculoskeletal Extremities tone within normal limits. trace LE edema. Neurological Dysarthria, Right facial droop Skin Warm, dry and intact. No apparent lesions. Psychiatric Patient has good affect, is cooperative Results Labs 05/24/24 05:31 05/24/24 05:31 Labs: Short CBC 05/24/24 Range/Units 05:31 WBC 5.5 (3.8-10.6) Thou/mm3 Hgb 13.6 (13.5-16.0) g/dL Hct 41.2 (41.0-53.0) % Plt Count 133 L (140-440) Thou/mm3 BMP 05/24/24 05:31 Sodium 145 Potassium 4.1 D Chloride 109 H Carbon Dioxide 32.3 H BUN 18 Creatinine 1.0 Glucose 113 H Calcium 9.7 Liver Function 05/24/24 Range/Units 05:31 Total Bilirubin 0.9 (0.3-1.2) mg/dL AST 20 (0-34) U/L ALT 17 (10-49) U/L Alkaline Phosphatase 105 (46-116) U/L Albumin 4.1 (3.4-4.8) gm/dL Quality Measures Quality Measures stroke Suspected type of Stroke: Non Acute Last known well (date): 05/21/24 Last known well (time): 19:00 Tenecteplase given: Reason(s) Tenecteplase not given: Outside the time window not given Rehab services: PT evaluation ordered VTE Prophylaxis: pharmaceutical Antithrombotic by day 2:: ordered Statin ordered: >75 y/o moderate or high intensity dose Anticoagulation ordered for A-fib or flutter (current or hx): ordered Advance care planning discussed with:: patient Medications Home Medications and Allergies Home Medications ?Medication ?Instructions ?Recorded ?Confirmed ?Type carvedilol 3.125 mg tablet 3.125 mg PO BID 05/22/24 05/22/24 History donepezil 10 mg tablet 10 mg PO HS 05/22/24 05/22/24 History losartan 100 1 tab PO DAILY 05/22/24 05/22/24 History mg-hydrochlorothiazide 12.5 mg tablet memantine 5 mg tablet 5 mg PO BID 05/22/24 05/22/24 History pantoprazole 40 mg tablet,delayed 40 mg PO DAILY 05/22/24 05/22/24 History release quetiapine 25 mg tablet 25 mg PO HS 05/22/24 05/22/24 History sertraline 100 mg tablet 100 mg PO DAILY 05/22/24 05/22/24 History Allergies Allergy/AdvReac Type Severity Reaction Status Date / Time No Known Allergies Allergy Verified 05/22/24 11:30 Visit Medications Acetaminophen (Acetaminophen 325 Mg Tablet) 650 mg PO Q6H PRN PRN Reason: Fever >101.5 Stop: 06/21/24 11:45 Acetaminophen (Acetaminophen 325 Mg Tablet) 650 mg PO Q6H PRN PRN Reason: PAIN SCALE 1-3 (mild Stop: 06/21/24 11:45 Hydrocodone Bitart/Acetaminophen (Hydrocodone/Apap 5/325 Tablet) 1 tab PO Q6HR PRN PRN Reason: PAIN SCALE 4-6 (Moderate Stop: 05/27/24 11:45 Aspirin (Aspirin Ec 81 Mg Tabec) 81 mg PO QDAY [facility] Stop: 06/22/24 08:59 Last Admin: 05/24/24 08:32 Dose: 81 mg Atorvastatin Calcium (Atorvastatin Calcium 20 Mg Tablet) 80 mg PO HS [facility] Stop: 06/22/24 20:59 Last Admin: 05/23/24 20:19 Dose: 80 mg Carvedilol (Carvedilol 3.125 Mg Tablet) 3.125 mg PO BID [facility] Stop: 06/22/24 20:59 Last Admin: 05/24/24 08:31 Dose: 3.125 mg Donepezil HCl (Donepezil Hcl 5 Mg Tablet) 10 mg PO HS [facility] Stop: 06/22/24 20:59 Last Admin: 05/23/24 20:19 Dose: 10 mg Hydrochlorothiazide (Hydrochlorothiazide 12.5 Mg Capsule) 12.5 mg PO QDAY [facility] Stop: 06/23/24 08:59 Last Admin: 05/24/24 08:32 Dose: 12.5 mg Ceftriaxone Sodium/Dextrose (Rocephin/D5w 1gm Iv Premix) 50 mls @ 100 mls/hr IV QDAY [facility] Stop: 05/30/24 08:59 Last Admin: 05/24/24 08:32 Dose: 100 mls/hr Heparin Sodium/Dextrose (Heparin In D5w Ivpb) 25,000 unit in 250 mls @ 16.003 mls/hr IV .[id number] [facility]; Protocol Stop: 06/07/24 08:29 Last Admin: 05/24/24 09:58 Dose: 18 units/kg/hr, 16.003 mls/hr Labetalol HCl (Labetalol 100 Mg Tablet) 100 mg PO Q6H PRN PRN Reason: If SBP>220mmHg or DBP >120mmHg Stop: 06/21/24 16:08 Losartan Potassium (Losartan Potassium 25 Mg Tablet) 100 mg PO QDAY [facility] Stop: 06/23/24 08:59 Last Admin: 05/24/24 08:30 Dose: 100 mg Memantine (Memantine Hcl 5 Mg Tablet) 5 mg PO BID [facility] Stop: 06/22/24 20:59 Last Admin: 05/24/24 08:31 Dose: 5 mg Morphine Sulfate (Morphine Sulf Inj 10 Mg/Ml Vial) 1 mg IVP Q4H PRN PRN Reason: PAIN SCALE 7-10 (Severe Stop: 05/27/24 11:45 Ondansetron HCl (Ondansetron Inj 2 Mg/Ml Inj 2 Ml) 4 mg IV Q6H PRN; Protocol PRN Reason: NAUSEA OR VOMITING Stop: 06/21/24 11:45 Pantoprazole Sodium (Pantoprazole 40 Mg Tablet) 40 mg PO DAILY [facility] Stop: 06/23/24 08:59 Last Admin: 05/24/24 08:31 Dose: 40 mg Quetiapine Fumarate (Quetiapine Fumarate 25 Mg Tablet) 25 mg PO HS [facility] Stop: 06/22/24 20:59 Last Admin: 05/23/24 20:19 Dose: 25 mg Sertraline HCl (Sertraline Hcl 25 Mg Tablet) 100 mg PO DAILY [facility] Stop: 06/23/24 08:59 Last Admin: 05/24/24 08:31 Dose: 100 mg Discontinued Medications Aspirin (Aspirin Ec 81 Mg Tabec) 81 mg PO X1 ONE Stop: 05/22/24 11:25 Last Admin: 05/22/24 11:31 Dose: Not Given Heparin Sodium (Porcine) (Heparin Sod Inj 5000 Unit/Ml Vial) 5,000 unit SC Q12H [facility] Stop: 06/05/24 11:59 Last Admin: 05/22/24 23:44 Dose: 5,000 unit Heparin Sodium (Porcine) (Heparin Sod Inj 5000 Unit/Ml Vial) 5,000 unit SC Q12HR [facility] Stop: 06/05/24 11:59 Last Admin: 05/24/24 08:33 Dose: 5,000 unit Heparin Sodium (Porcine) (Heparin Sod Inj 5000 Unit/Ml Vial) 7,000 unit IVP X1 ONE Stop: 05/24/24 09:57 Heparin Sodium (Porcine) (Heparin Sod Inj 5000 Unit/Ml Vial) 2,000 unit IVP X1 ONE Stop: 05/24/24 10:08 Last Admin: 05/24/24 10:15 Dose: 2,000 unit Ceftriaxone Sodium/Dextrose (Rocephin/D5w 1gm Iv Premix) 50 mls @ 100 mls/hr IV X1 ONE Stop: 05/22/24 11:47 Last Infusion: 05/22/24 12:20 Dose: Infused Influenza Virus Vaccine Quadrival (Influenza Virus Quadrivalent 0.5 Ml Syringe) 0.5 ml IMi .ONCE ONE Stop: 05/22/24 22:36 Ondansetron HCl (Ondansetron Inj 2 Mg/Ml Inj 2 Ml) 4 mg IV Q4HR PRN PRN Reason: NAUSEA OR VOMITING Stop: 06/21/24 08:51 Potassium Chloride (Potassium Chloride 20 Meq Tabcr) 20 meq PO X1 ONE Stop: 05/23/24 10:40 Last Admin: 05/23/24 11:14 Dose: 20 meq Assessment & Plan Plan Patient is an 84-year-old male with a past medical history of essential hypertension, dementia and old strokes seen on imaging but not known to the patient's family. Presented to the ED on 05/22/2024 for acute onset dysarthria facial droop. Patient was admitted to the floors for stroke workup and cardiology was consulted for A-fib. 1. Paroxysmal A-fib?newly diagnosed 2. First-degree AV block 3. LBBB Patient presented on this admission for dysarthria and right facial droop. Unable to ascertain as any history of chest pain/pressure or palpitations due to baseline dementia and family not being present at bedside. Attempts were made to contact his and daughter via telephone, however unsuccessful. EKG on admission showed sinus rhythm with first-degree AV block and LBBB, repeat EKG same findings with rate 85 Patient appears to be on carvedilol 3.125 mg p.o. twice daily as home medication but family states that uncertain of why he was started on this. Follows up with PCP Dr. Quinteros. [id number]: 6 points; 9.7% stroke risk per year HAS-BLED: 4 points; high risk of major bleeding Transthoracic echocardiogram completed on 05/22 findings include: Negative bubble study. TTE is suboptimal to rule out PFO or ASD. Consider CLINTON if high clinical suspicion. The aortic root is moderately dilated and the ascending aorta is moderately dilated. 4.4cm. Normal LV size. Low normal function around 45-50%. Mild LVH. Lateral and septal wall dysnchrony noted due to LBBB. Cannot determine diastolic function due to Afib. Normal RV size and function. Trace TR. Mild to moderate AV stenosis, mean gradient 19mmHg. vmax 2.7m/s. KRISSY < 1 sq cm. Probably under estimated AV stenosis due to mildly low EF. Patient currently on heparin infusion for treatment of DVT. Plan: ? Continue rate control with Coreg 3.125 mg p.o. twice daily uptitrate as necessary for heart rate control. ? Patient has paroxysmal A-fib, not seen on telemetry so far on this admission however was apparent on transthoracic echocardiogram. ? Patient currently on heparin infusion for treatment of DVT, recommend to start Eliquis 5 Mg p.o. twice daily and discontinue heparin infusion 1 hour after. ? Plan for CLINTON as outpatient with possible electrical cardioversion. ? Follow-up in cardiology clinic within 1 week of discharge 4. Essential hypertension On admission patient's BP 124/85. Currently BP 130/87 Patient's home medication Coreg 3.125 mg p.o. twice daily and losartan/HCTZ 100/12.5 p.o. daily Currently patient on losartan 100 mg p.o. daily Plan: ? Continue current management and titrate medication as necessary 5. Hyperlipidemia On admission triglycerides 149, cholesterol 164, LDL 108 Recommend to continue high intensity statin 6. Acute decompensated chronic systolic heart failure [EF 45-50%] Patient's home diuretic losartan/HCTZ 100/12.5 Mg p.o. daily At baseline prior to admission patient denied about in his wheelchair. On exam patient has trace lower extremity edema, lungs clear to auscultation and a 3/6 ejection systolic murmur heard at right sternal border. Transthoracic echocardiogram completed on 05/22 findings include: Negative bubble study. TTE is suboptimal to rule out PFO or ASD. Consider CLINTON if high clinical suspicion. The aortic root is moderately dilated and the ascending aorta is moderately dilated. 4.4cm. Normal LV size. Low normal function around 45-50%. Mild LVH. Lateral and septal wall dysnchrony noted due to LBBB. Cannot determine diastolic function due to Afib. Normal RV size and function. Trace TR. Mild to moderate AV stenosis, mean gradient 19mmHg. vmax 2.7m/s. KRISSY < 1 sq cm. Probably under estimated AV stenosis due to mildly low EF. Plan: ? Patient already on beta-william and ARB can add spironolactone at a later time as part of GDMT?guideline directed medical therapy. 7. Mild to moderate aortic stenosis At baseline patient's moves her bowels in his wheelchair and has baseline dementia. Unable to obtain any history of shortness of breath on exertion, presyncope, dizziness. Echo significant for aortic root moderately dilated and mild to moderate AV stenosis possibly underestimated due to mildly low EF. Plan: ? Twice yearly surveillance transthoracic echocardiograms to monitor aortic stenosis. ? Follow-up in cardiology clinic within 1 week of discharge Azotemia, with a past medical history of previous CVA, mild dementia, 8. Acute deep vein thrombosis Venous Doppler completed on 05/23 was positive for acute deep vein thrombosis involving entire deep venous system of right lower extremity. Patient currently on heparin infusion therapeutic dose. Continue rest of management as per primary team 9. Dementia 10. Major depressive disorder Patient alert and oriented x 1 [person] Home medication donepezil 10 Mg p.o. at bedtime, memantine 5 Mg p.o. twice daily, acute pain 25 Mg p.o. at bedtime and sertraline 100 Mg p.o. daily. Continue management as per primary team 11. Bacteremia 12. UTI Urinalysis significant for positive nitrites and leukocyte esterase with numerous WBCs. Also positive for GPC. Patient currently on ceftriaxone 1 g IV daily. Dose for bacteremia is ceftriaxone 2 g IV daily. 13. Acute embolic stroke 14. History of severe microvascular disease and chronic stroke MRI showed acute left parietal and occipital multifocal infarcts, superimposed on severe confluent white matter disease. Plan: ? Continue aspirin 81 Mg daily as per telemetry neurology ? Continue high intensity statin ? Continue beta-william for heart rate control Continue rest of management as per primary team. We are grateful to be able to participate in Mr. Anderson's care. Thank you for the consult Plan of care discussed with attending Folder Inspector, Dr Zoe Kimbrough MD PGY 1 Attending Provider Attestation/Addendum I have personally seen and examined the patient separately on the above date of service and discussed the plan of care with the resident. I reviewed the resident Dr. Kimbrough consultation progress note and agree with the resident findings and plan in the note above and have also edited the documentation to reflect my findings and plan. 84-year-old male with a past medical history of previous CVA with unknown baseline, essential hypertension, dementia mild, GERD: Presented to the emergency department for acute onset dysarthria and facial droop. Patient was found to have an acute stroke possible embolic origin as MRI showed acute left parietal as well as occipital and multifocal infarcts and the patient also has severe confluent white matter disease. Patient was seen by neurology and started on aspirin and high intensity statin. Echo was performed during this admission given the CVA which showed negative bubble study aortic root 4 moderately dilated and the ascending aorta is also moderately dilated at 4.4 cm. Normal LV size, low normal function at 45 to 50%. Lateral septal valve disagreed and noted due to the LBBB, mild to moderate aortic valve stenosis with a mean gradient of 90 mmHg V-max of 2.7 m/s but aortic valve area of less than 1 cm?. Probably underestimated aortic valve stenosis due to mildly low EF. Echo mentioned irregular heart rate and possible A-fib in the cardiology was consulted for the same to rule out A-fib given the history of stroke with multifocal infarcts. Of note patient also was diagnosed with bilateral DVT with extensive right leg DVT as well as left common femoral vein DVT for which the patient was started on heparin drip for anticoagulation. Reviewed the EKG and showed a normal sinus rhythm with left bundle branch block and no evidence of any atrial fibrillation. Telemetry also did not show any evidence till now but will continue to monitor telemetry for now. Rate is well- controlled and can recommend to continue with Coreg 3.125 mg twice daily. Keep potassium greater than 4 magnesium greater than 2.0. Patient is already on anticoagulation for the DVT Continue to monitor telemetry to rule out any Arrhythmias for now including any evidence of atrial fibrillation. The irregular heartbeat along with septal lateral wall describing chronic noted on the echocardiogram is mostly secondary to PVCs along with a left bundle branch block. Patient does have mild systolic dysfunction with an EF of 45 to 50% but patient does not appear to be in significant volume overload and has only has trace lower extremity edema and has 3 or 6 ejection systolic murmur in the aortic area and the echo does confirm the mild to moderate aortic valve stenosis with a valve area was less than 1 cm?. Patient was on hydrochlorothiazide at home and recommend to restart losartan hydrochlorothiazide combination pill. Patient already on beta-william as well as ARB and if kidney function stable will add spironolactone at later point of time for goal-directed medical therapy. Strict input of recommended weight and 2 g sodium diet Blood pressure well-controlled on losartan along with the Coreg 3.125 mg twice daily. And the hydrochlorothiazide 12.5 mg given the trace edema and better blood pressure control. Check TSH, A1c and lipid profile for further cardiac risk stratification. Ibrahima Enriquez M.D. Interventional Cardiology
[2024-05-24 16:40] LABS: Magnesium 1.9 mg/dL (1.6-2.6)
[2024-05-24 17:25] LABS: Partial Thromboplastin Time > 139.0 Seconds (22.0-36.0)
[2024-05-24] MEDS: QUEtiapine FUMARATE 25 MG TABLET PO (20:22)
[2024-05-24] MEDS: DONEPEZIL HCL 5 MG TABLET 10 MG PO (20:22)
[2024-05-24] MEDS: ATORVASTATIN CALCIUM 20 MG TABLET 80 MG PO (20:23)
--- NOTE | 2024-05-24 23:45 | PD.NEUROPROG ---
Documentation for date of: 05/24/24 Subjective Subjective Interval history: Patient was seen in telemetry today. No new symptoms reported. He continues to have right hemiparesis with spasticity and contracture in the right upper extremity more than lower. Exam - Neurology Vital Signs Temp Pulse Resp BP Pulse Ox O2 Del Method FiO2 97.5 F 81 18 151/89 H 96 Room Air 96 05/24/24 20:00 05/24/24 20:22 05/24/24 20:00 05/24/24 20:22 05/24/24 20:00 05/24/24 20:00 05/23/24 11:58 Narrative Exam GENERAL APPEARANCE: Well hydrated, well-nourished in no acute distress. HEENT: Normocephalic, atraumatic, extraocular movements intact. Pupils: Equal reacting to light and accommodation, tympanic membranes are bilaterally intact. There is no bulge or retraction. Throat without erythema or exudate. Moist oral mucosa. NECK: Supple, no JVD or bruits. CARDIOVASULAR: Heart: S1, S2 heard, regular without S3-S4 or murmur no rubs or gallops. LUNGS/CHEST: Clear to auscultation bilaterally. No rails, rhonchi, or wheezing. Normal inspection. ABDOMEN: Soft, nontender, with normal bowel sounds. No pulsatile masses. No rebound, rigidity, or guarding. Normal inspection and palpation. EXTREMITIES: Normal inspection and palpation. No edema, clubbing or cyanosis. SKIN: Warm and dry without rashes. Normal inspection. MUSCULOSKELETAL: No cervical, thoracic, lumbar or midline bony tenderness. Normal inspection. NEURO: Alert, awake and oriented x2. Cranial nerves: II through XII grossly intact. Speech and language: Normal with no dysarthria or dysphasia. Motor system: Tone and bulk: Normal: Strength: Right hemiparesis affecting upper more than lower, with spasticity and contracture in the right hand. Deep tendon reflexes: 2+ bilaterally symmetrical. Plantar reflex: Downgoing bilaterally. Sensory system: Intact to pinprick sensation bilaterally. Coordination: Intact to [id number] and [id number] test bilaterally. No ataxia, no dysmetria, or dysdiadochokinesia noted. No intention tremors noted. Gait: Not tested. No signs of meningeal irritation noted. PSYCHIATRIC: Normal mood and affect. Objective Labs 05/24/24 05:31 05/24/24 05:31 Labs: Laboratory Results - last 24 hr 05/24/24 05/24/24 05:31 15:50 WBC 5.5 RBC 4.24 L Hgb 13.6 Hct 41.2 MCV 97 MCH 32.1 MCHC 33.0 RDW Std Deviation 52.4 H Plt Count 133 L Neut % (Auto) 57 Lymph % (Auto) 31 [place] % (Auto) 8 Eos % (Auto) 3 Baso % (Auto) 1 Neut # (Auto) 3.1 Lymph # (Auto) 1.7 [place] # (Auto) 0.4 Eos # (Auto) 0.2 Baso # (Auto) 0.1 Immature Gran # (Auto) 0.02 H Absolute Nucleated RBC 0.00 Immature Gran % 0 Nucleated RBC % 0 APTT 27.1 > 139.0 H* D Sodium 145 Potassium 4.1 D Chloride 109 H Carbon Dioxide 32.3 H Anion Gap 4 L BUN 18 Creatinine 1.0 Estim Creat Clear Calc 59.5 L eGFR > 60 BUN/Creatinine Ratio 18 Glucose 113 H Calculated Osmolality 291 Calcium 9.7 Corrected Calcium 9.7 Magnesium 1.9 Total Bilirubin 0.9 AST 20 ALT 17 Alkaline Phosphatase 105 Total Protein 6.4 Albumin 4.1 Globulin 2.3 Albumin/Globulin Ratio 1.8 Assessment & Plan Assessment and plan (1) Acute CVA (cerebrovascular accident): Status: Acute Assessment and plan: MRI brain from 05/22/2024 showed multiple acute embolic type infarcts involving the left cerebral hemisphere Contrasted study: Negative for vasculitis Echocardiogram: Ejection fraction: 45 to 50%, negative for bubble study Continue with anticoagulation and statin Continue with physical therapy for range of motion (2) Dementia: Status: Chronic Assessment and plan: Vascular dementia pattern seen in MRI brain. Continue with blood pressure control, memantine and donepezil to slow down progression (3) DVT (deep venous thrombosis): Status: Acute Assessment and plan: Confirmed by venous Doppler of both lower extremities Continue with heparin as per primary team
[2024-05-25] VITALS (11 sets, daily range): BP systolic 95–117; BP diastolic 61–71; PULSE 63–91; RESP 14–22; TEMP 36.3–36.9; O2SAT 92–99; BMI 30.7
[2024-05-25 01:18] LABS: Partial Thromboplastin Time > 139.0 Seconds (22.0-36.0)
--- NOTE | 2024-05-25 03:06 | PC.NURSE ---
Nazario RN covering IRENA Robles for lunch. ICU technician test systems called saying that patient is desating into the 70's. IRENA Lange and RT went to go assess patient. RT decided to put patient on 4L oxymask.
[2024-05-25 05:56] LABS: Basophils # (Auto) 0.1 Thou/mm3 (0.0-0.2); Basophils % (Auto) 1 % (0-2.5); Eosinophils # (Auto) 0.2 Thou/mm3 (0.0-0.5); Eosinophils % (Auto) 3 % (0-10); Hematocrit 35.3 % (41.0-53.0); Hemoglobin 11.9 g/dL (13.5-16.0); Immature Granulocytes % (Auto) 1 % (0-0); Immature Granulocytes Auto 0.05 Thou/mm3 (0.00-0.00); Lymphocytes % (Auto) 28 % (10-50); Mean Corpuscular HGB Conc 33.7 g/dl (31.0-37.0); Mean Corpuscular Hemoglobin 32.5 pg (25.0-35.0); Mean Corpuscular Volume 96 fL (80-100); Monocytes # (Auto) 0.6 Thou/mm3 (0.0-0.8); Monocytes % (Auto) 8 % (0-12); Neutrophils # (Auto) 4.3 Thou/mm3 (1.8-7.7); Neutrophils % (Auto) 60 % (37-80); Nucleated Red Blood Cell % 0 /100 WBC (0); Platelet Count 118 Thou/mm3 (140-440); RDW Standard Deviation 50.1 fL (35.1-43.9); Red Blood Count 3.66 Miln/mm3 (4.50-5.90); White Blood Count 7.1 Thou/mm3 (3.8-10.6)
[2024-05-25 06:27] LABS: Alanine Aminotransferase 22 U/L (10-49); Albumin, Serum 3.5 gm/dL (3.4-4.8); Albumin/Globulin Ratio 1.8 (1.2-2.2); Alkaline Phosphatase 86 U/L (46-116); Anion Gap 5 (7-16); Aspartate Amino Transferase 21 U/L (0-34); BUN/Creatinine Ratio 21 Ratio (12-20); Bilirubin,Total 0.6 mg/dL (0.3-1.2); Blood Urea Nitrogen 21 mg/dL (9-23); Calcium 8.9 mg/dL (8.3-10.6); Calcium (Corrected) 9.3 mg/dL (8.5-10.1); Carbon Dioxide 31.2 mMol/L (20.0-31.0); Chloride 108 mMol/L (98-107); Estimated Creatinine Clearance 59.5 mL/min (>60); Glucose 103 mg/dL (74-106); Magnesium 2.1 mg/dL (1.6-2.6); Osmolality,Calculated 289 (275-295); Potassium 3.3 mMol/L (3.4-5.1); Sodium 144 mMol/L (136-145); Total Protein 5.5 gm/dL (5.7-8.2); eGFR > 60 See Note
[2024-05-25 06:30] LABS: INR 1.1 (0.9-1.3); Prothrombin Time 12.2 Seconds (9.0-12.2)
[2024-05-25] MEDS: Heparin/D5w 25K 250 ML Ivpb 25,000 UNIT/250 ML BAG 10.668 UNIT IV (06:42)
[2024-05-25 07:12] LABS: Partial Thromboplastin Time 137.6 Seconds (22.0-36.0)
--- NOTE | 2024-05-25 08:22 | ESPR_ITS ---
Documentation for date of: 05/25/24 Subjective Subjective Interval history: Patient was seen and examined at bedside this AM. No acute exents overnight. Patient tolerating diet, adequate urine output and mentation is at baseline dementia. A&O x 2 Patient says he feels well today. Denies any chest pain/pressure, palpitations or SOB From Tele review patient appears to be in sinus rhythm with rate between 70-80s overnight Currently anticoagulated on Eliquis 10mg po BID for both b/l DVT and Afib K 3.3 and Mg 2.1. Recommend to replete with KCL 40 les po and KCL 40 meq IV .PLease maintain K > 4 and Mg >2 at all times to prevent any arrhythmias Patient's and daughter at bedside this morning and updated on echo findings and treatment plan for A-fib. They understand and are grateful. Exam Vital Signs Temp Pulse Resp BP Pulse Ox O2 Del Method O2 Flow Rate 97.4 F 71 16 112/71 96 Oxy Mask 4 05/25/24 04:00 05/25/24 07:23 05/25/24 07:23 05/25/24 04:00 05/25/24 07:23 05/25/24 04:00 05/25/24 04:00 FiO2 96 05/23/24 11:58 Narrative Exam Constitutional Alert, oriented x 2 [person,place] and comfortable, Elderly male, forgetful HEENT Vision grossly intact. Patent nares. Trachea midline Respiratory Chest normal on inspection and clear auscultation bilaterally Cardiovascular S1 and S2 audible, RRR. 3/6 ejection systolic murmur heard at Right sternal border with radiation to carotids. No gross JVD. Abdominal Soft,obese and non tender to palpation in all quadrants. BS + Genitourinary No bladder tenderness, no flank pain. Normal to palpation Musculoskeletal Extremities tone within normal limits. trace LE edema. Neurological Dysarthria, Right facial droop Skin Warm, dry and intact. No apparent lesions. Psychiatric Patient has good affect, is cooperative Objective Labs 05/25/24 04:54 05/25/24 04:54 Labs: Laboratory Results - last 24 hr 05/24/24 05/24/24 05/25/24 05:31 15:50 00:22 WBC RBC Hgb Hct MCV MCH MCHC RDW Std Deviation Plt Count Neut % (Auto) Lymph % (Auto) [place] % (Auto) Eos % (Auto) Baso % (Auto) Neut # (Auto) Lymph # (Auto) [place] # (Auto) Eos # (Auto) Baso # (Auto) Immature Gran # (Auto) Absolute Nucleated RBC Immature Gran % Nucleated RBC % PT INR APTT 27.1 > 139.0 H* D > 139.0 H* Sodium Potassium Chloride Carbon Dioxide Anion Gap BUN Creatinine Estim Creat Clear Calc eGFR BUN/Creatinine Ratio Glucose Calculated Osmolality Calcium Corrected Calcium Magnesium 1.9 Total Bilirubin AST ALT Alkaline Phosphatase Total Protein Albumin Globulin Albumin/Globulin Ratio 05/25/24 04:54 WBC 7.1 RBC 3.66 L Hgb 11.9 L Hct 35.3 L MCV 96 MCH 32.5 MCHC 33.7 RDW Std Deviation 50.1 H Plt Count 118 L Neut % (Auto) 60 Lymph % (Auto) 28 [place] % (Auto) 8 Eos % (Auto) 3 Baso % (Auto) 1 Neut # (Auto) 4.3 Lymph # (Auto) 2.0 [place] # (Auto) 0.6 Eos # (Auto) 0.2 Baso # (Auto) 0.1 Immature Gran # (Auto) 0.05 H Absolute Nucleated RBC 0.00 Immature Gran % 1 H Nucleated RBC % 0 PT 12.2 INR 1.1 APTT 137.6 H* Sodium 144 Potassium 3.3 L D Chloride 108 H Carbon Dioxide 31.2 H Anion Gap 5 L BUN 21 Creatinine 1.0 Estim Creat Clear Calc 59.5 L eGFR > 60 BUN/Creatinine Ratio 21 H Glucose 103 Calculated Osmolality 289 Calcium 8.9 Corrected Calcium 9.3 Magnesium 2.1 Total Bilirubin 0.6 AST 21 ALT 22 Alkaline Phosphatase 86 Total Protein 5.5 L Albumin 3.5 D Globulin 2.0 L Albumin/Globulin Ratio 1.8 Quality Measures Quality Measures stroke Suspected type of Stroke: Non Acute Last known well (date): 05/21/24 Last known well (time): 19:00 Tenecteplase given: Reason(s) Tenecteplase not given: Outside the time window not given Rehab services: PT evaluation ordered VTE Prophylaxis: pharmaceutical Antithrombotic by day 2:: ordered Statin ordered: >75 y/o moderate or high intensity dose Anticoagulation ordered for A-fib or flutter (current or hx): ordered Advance care planning discussed with:: patient Assessment & Plan Assessment Current Active Medications: Generic Name Dose Route Start Last Admin Trade Name Jose Luisq PRN Reason Stop Dose Admin Acetaminophen 650 mg 05/22/24 11:46 Acetaminophen 325 Mg Tablet PO 06/21/24 11:45 Q6H PRN Fever >101.5 Acetaminophen 650 mg 05/22/24 11:46 Acetaminophen 325 Mg Tablet PO 06/21/24 11:45 Q6H PRN PAIN SCALE 1-3 (mild Hydrocodone Bitart/Acetaminophen 1 tab 05/22/24 11:46 Hydrocodone/Apap 5/325 Tablet PO 05/27/24 11:45 Q6HR PRN PAIN SCALE 4-6 (Moderate Apixaban 10 mg 05/25/24 09:00 Apixaban 2.5 Mg Tablet PO 06/01/24 08:59 BID DULCE Protocol Apixaban 5 mg 06/01/24 09:00 Apixaban 2.5 Mg Tablet PO 06/22/24 08:59 BID DULCE Protocol Aspirin 81 mg 05/23/24 09:00 05/24/24 08:32 Aspirin Ec 81 Mg Tabec PO 06/22/24 08:59 81 mg QDAY DULCE Administration Atorvastatin Calcium 80 mg 05/23/24 21:00 05/24/24 20:23 Atorvastatin Calcium 20 Mg Tablet PO 06/22/24 20:59 80 mg HS DULCE Administration Carvedilol 3.125 mg 05/23/24 21:00 05/24/24 20:22 Carvedilol 3.125 Mg Tablet PO 06/22/24 20:59 3.125 mg BID DULCE Administration Donepezil HCl 10 mg 05/23/24 21:00 05/24/24 20:22 Donepezil Hcl 5 Mg Tablet PO 06/22/24 20:59 10 mg HS DULCE Administration Hydrochlorothiazide 12.5 mg 05/24/24 09:00 05/24/24 08:32 Hydrochlorothiazide 12.5 Mg Capsule PO 06/23/24 08:59 12.5 mg QDAY DULCE Administration Ceftriaxone Sodium/Dextrose 50 mls @ 100 mls/hr 05/23/24 09:00 05/24/24 08:32 Rocephin/D5w 1gm Iv Premix IV 05/30/24 08:59 100 mls/hr QDAY DULCE Administration Heparin Sodium/Dextrose 25,000 unit in 250 mls @ 16.003 mls/hr 05/24/24 08:30 05/25/24 06:42 Heparin In D5w Ivpb IV 05/25/24 09:00 12 units/kg/hr .[id number] DULCE 10.668 mls/hr Administration Protocol 18 UNITS/KG/HR Labetalol HCl 100 mg 05/22/24 16:09 Labetalol 100 Mg Tablet PO 06/21/24 16:08 Q6H PRN If SBP>220mmHg or DBP >120mmHg Losartan Potassium 100 mg 05/24/24 09:00 05/24/24 08:30 Losartan Potassium 25 Mg Tablet PO 06/23/24 08:59 100 mg QDAY DULCE Administration Memantine 5 mg 05/23/24 21:00 05/24/24 20:23 Memantine Hcl 5 Mg Tablet PO 06/22/24 20:59 5 mg BID DULCE Administration Morphine Sulfate 1 mg 05/22/24 11:46 Morphine Sulf Inj 10 Mg/Ml Vial IVP 05/27/24 11:45 Q4H PRN PAIN SCALE 7-10 (Severe Ondansetron HCl 4 mg 05/22/24 11:46 Ondansetron Inj 2 Mg/Ml Inj 2 Ml IV 06/21/24 11:45 Q6H PRN NAUSEA OR VOMITING Protocol Pantoprazole Sodium 40 mg 05/24/24 09:00 05/24/24 08:31 Pantoprazole 40 Mg Tablet PO 06/23/24 08:59 40 mg DAILY DULCE Administration Quetiapine Fumarate 25 mg 05/23/24 21:00 05/24/24 20:22 Quetiapine Fumarate 25 Mg Tablet PO 06/22/24 20:59 25 mg HS DULCE Administration Sertraline HCl 100 mg 05/24/24 09:00 05/24/24 08:31 Sertraline Hcl 25 Mg Tablet PO 06/23/24 08:59 100 mg DAILY DULCE Administration Plan Patient is an 84-year-old male with a past medical history of essential hypertension, dementia and old strokes seen on imaging but not known to the patient's family. Presented to the ED on 05/22/2024 for acute onset dysarthria facial droop. Patient was admitted to the floors for stroke workup and cardiology was consulted for A-fib. 1. Rule out Paroxysmal A-fib - no evidence until now and only sinus tachycardia 2. First-degree AV block 3. LBBB Patient presented on this admission for dysarthria and right facial droop. Unable to ascertain as any history of chest pain/pressure or palpitations due to baseline dementia and family not being present at bedside. Attempts were made to contact his and daughter via telephone, however unsuccessful. EKG on admission showed sinus rhythm with first-degree AV block and LBBB, repeat EKG same findings with rate 85 Patient appears to be on carvedilol 3.125 mg p.o. twice daily as home medication but family states that uncertain of why he was started on this. Follows up with PCP Dr. Quinteros. Transthoracic echocardiogram completed on 05/22 findings include: Negative bubble study. TTE is suboptimal to rule out PFO or ASD. Consider CLINTON if high clinical suspicion. The aortic root is moderately dilated and the ascending aorta is moderately dilated. 4.4cm. Normal LV size. Low normal function around 45-50%. Mild LVH. Lateral and septal wall dysnchrony noted due to LBBB. Normal RV size and function. Trace TR. Mild to moderate AV stenosis, mean gradient 19mmHg. vmax 2.7m/s. KRISSY < 1 sq cm. Probably under estimated AV stenosis due to mildly low EF. Patient says he feels well today. Denies any chest pain/pressure, palpitations or SOB From Tele review patient appears to be in sinus rhythm with rate between 70-80s overnight Currently anticoagulated on Eliquis 10mg po BID for both b/l DVT and Afib K 3.3 and Mg 2.1. Recommend to replete with KCL 40 les po and KCL 40 meq IV .PLease maintain K > 4 and Mg >2 at all times to prevent any arrhythmias Plan: ? Continue rate control with Coreg 3.125 mg p.o. twice daily uptitrate as necessary for heart rate control. ? A-fib, not seen on telemetry so far on this admission however was apparent on transthoracic echocardiogram. ? Patient transitioned to Eliquis from Heparin infusion today fo Extensive acute right leg DVT Recommend strongly to continue the anticoagulation with Eliquis for now and keep the leg and elevated at recommend to perform no massages or external pressure on the right leg. Recommended patient to continue with medical treatment for now rather than medical treatment but any procedures as she does not have any major contraindications for anticoagulations but can consider further imaging to evaluate for extension of the DVT into the iliac veins and IVC and also to monitor for any mobile thrombus. ? Follow-up in cardiology clinic within 1 week of discharge 4. Essential hypertension On admission patient's BP 124/85. Currently BP 112/71 Patient's home medication Coreg 3.125 mg p.o. twice daily and losartan/HCTZ 100/12.5 p.o. daily Currently patient on losartan 100 mg p.o. daily Plan: - Continue HCTZ 12.5 mg po daily and Losartan 100mg po daily patient's home medication 5. Hyperlipidemia On admission triglycerides 149, cholesterol 164, LDL 108 Hba1C 5.3% Recommend to continue high intensity statin 6. Acute decompensated chronic systolic heart failure [EF 45-50%] Patient's home diuretic losartan/HCTZ 100/12.5 Mg p.o. daily At baseline prior to admission patient denied about in his wheelchair. On exam patient has trace lower extremity edema, lungs clear to auscultation and a 3/6 ejection systolic murmur heard at right sternal border. Transthoracic echocardiogram completed on 05/22 findings include: Negative bubble study. TTE is suboptimal to rule out PFO or ASD. Consider [place] if high clinical suspicion. The aortic root is moderately dilated and the ascending aorta is moderately dilated. 4.4cm. Normal LV size. Low normal function around 45-50%. Mild LVH. Lateral and septal wall dysnchrony noted due to LBBB. Cannot determine diastolic function due to Afib. Normal RV size and function. Trace TR. Mild to moderate AV stenosis, mean gradient 19mmHg. vmax 2.7m/s. KRISSY < 1 sq cm. Probably under estimated AV stenosis due to mildly low EF. Plan: ? Patient already on beta-william and ARB can add spironolactone at a later time as part of GDMT?guideline directed medical therapy. 7. Mild to moderate aortic stenosis At baseline patient's moves her bowels in his wheelchair and has baseline dementia. Unable to obtain any history of shortness of breath on exertion, presyncope, dizziness. Echo significant for aortic root moderately dilated and mild to moderate AV stenosis possibly underestimated due to mildly low EF. Plan: ? Twice yearly surveillance transthoracic echocardiograms to monitor aortic stenosis. ? Follow-up in cardiology clinic within 1 week of discharge 8. Acute B/L deep vein thrombosis Venous Doppler completed on 05/23 was positive for acute deep vein thrombosis involving entire deep venous system of right lower extremity and Left common femoral Vein Patient transitioned to Eliquis from Heparin infusion today Continue rest of management as per primary team 9. Dementia 10. Major depressive disorder Patient alert and oriented x 1 [person] Home medication donepezil 10 Mg p.o. at bedtime, memantine 5 Mg p.o. twice daily, acute pain 25 Mg p.o. at bedtime and sertraline 100 Mg p.o. daily. Continue management as per primary team 11. Bacteremia 12. UTI Urinalysis significant for positive nitrites and leukocyte esterase with numerous WBCs. Also positive for GPC. Patient currently on ceftriaxone 1 g IV daily. Dose for bacteremia is ceftriaxone 2 g IV daily. 13. Acute embolic stroke 14. History of severe microvascular disease and chronic stroke MRI showed acute left parietal and occipital multifocal infarcts, superimposed on severe confluent white matter disease. Azotemia, with a past medical history of previous CVA, mild dementia, EEG completed on 05/25 findings include: EEG is abnormal. Mild diffuse slowing is suggestive of diffuse encephalopathy of metabolic, degenerative or vascular origin. No epileptiform discharges noted. Plan: ? Continue aspirin 81 Mg daily as per telemetry neurology ? Continue high intensity statin ? Continue beta-william for heart rate control Continue rest of management as per primary team. We are grateful to be able to participate in Mr. Anderson's care. Thank you for the consult Plan of care discussed with attending Diesel Mechanic, Dr Zoe Kimbrough MD PGY 1 Attending Provider Attestation/Addendum I reviewed the resident Dr. Kimbrough consultation progress note and agree with the resident findings and plan in the note above and have also edited the documentation to reflect my findings and plan. 84-year-old male with a past medical history of previous CVA with unknown baseline, essential hypertension, dementia mild, GERD: Presented to the emergency department for acute onset dysarthria and facial droop. Patient was found to have an acute stroke possible embolic origin as MRI showed acute left parietal as well as occipital and multifocal infarcts and the patient also has severe confluent white matter disease. Patient was seen by neurology and started on aspirin and high intensity statin. Echo was performed during this admission given the CVA which showed negative bubble study aortic root 4 moderately dilated and the ascending aorta is also moderately dilated at 4.4 cm. Normal LV size, low normal function at 45 to 50%. Lateral septal valve disagreed and noted due to the LBBB, mild to moderate aortic valve stenosis with a mean gradient of 90 mmHg V-max of 2.7 m/s but aortic valve area of less than 1 cm?. Probably underestimated aortic valve stenosis due to mildly low EF. Echo mentioned irregular heart rate and possible A-fib in the cardiology was consulted for the same to rule out A-fib given the history of stroke with multifocal infarcts. Of note patient also was diagnosed with bilateral DVT with extensive right leg DVT as well as left common femoral vein DVT for which the patient was started on heparin drip for anticoagulation. Reviewed the EKG and showed a normal sinus rhythm with left bundle branch block and no evidence of any atrial fibrillation. Telemetry also did not show any evidence till now but will continue to monitor telemetry for now. Rate is well- controlled and can recommend to continue with Coreg 3.125 mg twice daily. Keep potassium greater than 4 magnesium greater than 2.0. Patient is already on anticoagulation for the DVT Continue to monitor telemetry to rule out any Arrhythmias for now including any evidence of atrial fibrillation. The irregular heartbeat along with septal lateral wall describing chronic noted on the echocardiogram is mostly secondary to PVCs along with a left bundle branch block. Patient does have mild systolic dysfunction with an EF of 45 to 50% but patient does not appear to be in significant volume overload and has only has trace lower extremity edema and has 3 or 6 ejection systolic murmur in the aortic area and the echo does confirm the mild to moderate aortic valve stenosis with a valve area was less than 1 cm?. Patient was on hydrochlorothiazide at home and recommend to restart losartan hydrochlorothiazide combination pill. Patient already on beta-william as well as ARB and if kidney function stable will add spironolactone at later point of time for goal-directed medical therapy. Strict input of recommended weight and 2 g sodium diet tsh lipid profile and A1C for cardiac risk stratification Ibrahima Enriquez M.D. Interventional Cardiology
--- NOTE | 2024-05-25 09:06 | PC.NURSE ---
Called Dr. Marin about eliquis and heparin drip, heparin drip dc and ok to stop and give eliquis
[2024-05-25] MEDS: POTASSIUM CHLORIDE 20 mEq TABCR 40 MEQ PO (09:26)
[2024-05-25] MEDS: carVEDILOL 3.125 MG TABLET PO (09:27)
[2024-05-25] MEDS: APIXABAN 2.5 MG TABLET 10 MG PO (09:27)
[2024-05-25] MEDS: ASPIRIN EC 81 MG TABEC PO (09:27)
[2024-05-25] MEDS: cefTRIAXone/D5w 1gm IV premix 50 ML IV (09:28)
[2024-05-25] MEDS: MEMANTINE HCL 5 MG TABLET PO (09:28)
[2024-05-25] MEDS: PANTOPRAZOLE 40 MG TABLET PO (09:28)
[2024-05-25] MEDS: hydroCHLOROthiazide 12.5 MG CAPSULE PO (09:28)
[2024-05-25] MEDS: SERTRALINE HCL 25 MG TABLET 100 MG PO (09:29)
[2024-05-25 09:50] LABS: Partial Thromboplastin Time 113.9 Seconds (22.0-36.0)
--- NOTE | 2024-05-25 11:00 | PC.SS ---
Follow up note: SS met with at bedside to confirm d/c to SNF. SS has also spoken to his dtr, Cindy who is requesting [facility].
[2024-05-25] MEDS: POTASSIUM CHLORIDE 10% 20 MEQ/15 ML UDC 40 MEQ PO (12:26)
[2024-05-25] MEDS: POTASSIUM CHLORIDE 10% 20 MEQ/15 ML UDC PO (13:29)
--- NOTE | 2024-05-25 14:10 | PC.NURSE ---
Irrigated nugent catheter, no blood clots or hematuria noted during irrigation, Dr. Marin notified and ok to remove nugent catheter.
--- NOTE | 2024-05-25 14:21 | PC.NURSE ---
After removing nugent catheter bleeding at insertion site noted, about 5mL of blood. Dr. Marin notified.
--- NOTE | 2024-05-25 14:41 | ESDS_ITS ---
<Statement entered by Kb Chan MD - 05/25/24 15:25> Senior Resident Attestation: I supervised/discussed management plan with resident physician Dr. Hima Garcia, and was involved in the care of this patient. I personally saw and examined the patient and discussed the assessment and plan with the entire medicine team, including my attending. I agree with the assessment and plan as documented. Patient's care was discussed with attending physician, Dr. Dony Chan MD PGY-3 Planned Discharge Date 05/25/24 DS: Providers Provider Date of admission: 05/22/24 11:46 Primary care physician: Sudhakar Willis MD Admitting Provider: Stephan Napoles MD Attending Provider on Admission: Stephan Napoles MD Consults: 05/22/24 08:52 Consult to Neurology / Tele-Neurology Routine Comment: Consulting Provider: George Joyce 05/22/24 14:38 Referral Occupational Therapy Routine Comment: Referral Physical Therapy Routine Comment: Physician Instructions: 05/22/24 22:47 Referral Physical Therapy Routine Comment: Physician Instructions: Referral Speech Therapy Routine Comment: 05/24/24 15:03 Consult to Cardiology Routine Comment: Consulting Provider: Ibrahima Enriquez Attending Provider on DC: Stephan Napoles MD Discharging Provider: Jose Eason DO DS: Diagnosis Problem List Completed Was Problem List Reviewed/Reconciled?: Yes Hospital Course Hospital Course Hospital course: Meir Enrique is an 84y/o male with a history of hypertension, dementia, prior strokes found on imaging but not known to patient's family who presented to the ED on 05/22/2024 for acute-onset dysarthria and facial droop, found on MRI to be caused by multiple acute embolic infarcts in the left occipital and parietal lobes. Several studies ordered including EEG, transthoracic echocardiogram with bubble study, and MRI with contrast came back with unremarkable results related to ischemic stroke (but positive for new-onset atrial fibrillation and heart failure with reduced ejection fraction 45-50%), but doppler ultrasound of the lower extremities was positive for extensive thromboembolisms in the deep venous system of the right lower extremity, as well as a DVT in the left common femoral vein. Patient was started on aspirin, a high-intensity statin, and a heparin drip, which was transitioned to oral Eliquis prior to discharge. Cardiology was consulted for the atrial fibrillation and HFrEF, and gave recommendations to follow up outpatient for possible transesophageal echocardiogram and cardioversion. On 05/25/2024, patient medically cleared for discharge with instructions to follow up with his PCP, neurology, and cardiology, and to continue working with physical therapy and speech therapy. DISCHARGE INSTRUCTIONS: - Continue home medications as prescribed. - F/U with Cardiology- Dr. Enriquez in one week of discharge. - F/U with Neurology- Dr. Joyce in 1-2 weeks of discharge. - F/U with PCP within one week of discharge. - Continue to work with physical therapy and speech therapy. - Return to ED if symptoms recur or worsen. #Ischemic Infarct of Left Occipital and Parietal Lobe #DVTs of Lower Extremity #New-Onset Atrial Fibrillation #HFrEF LVEF 45-50% #Essential Hypertension #Dementia #Major Depressive Disorder Status at Discharge Overall status at discharge: patient is progressing back to baseline Time Spent with Patient Time attestation: Total time spent providing and/or coordinating discharge services: Exam Vital Signs Temp Pulse Resp BP Pulse Ox O2 Del Method O2 Flow Rate 98.4 F 69 19 110/64 99 Nasal Cannula 3 05/25/24 12:00 05/25/24 12:00 05/25/24 12:00 05/25/24 12:00 05/25/24 12:00 05/25/24 12:00 05/25/24 12:00 FiO2 96 05/23/24 11:58 Narrative Exam Gen: Alert, oriented to self and place, responsive to questions, follows commands, in no acute distress HEENT: Mild right-sided facial droop, speech slurred CVS: normal S1 and S2. RRR. No M/R/G. Resp: CTA B/L. No rhonchi, rales, crackles or wheezing. Abd: soft, non-tender, non-distended. BS+ in all 4 quadrants. MSK: Good ROM in BUE & BLE. No edema or rash. Neuro: Right-sided facial droop noted, patient moves all extremities spontaneously and on command, muscle strength intact across upper extremities and left lower extremity but slightly diminished in right LE, sensation diminished in right lower extremity but intact across the rest of his body, right hand has chronic contracture but still able to squeeze fingers in his palm Psych: appropriate mood and affect. Discharge Plan Plan Patient Disposition: Xfer Skilled [facility] Fac (SNF) Care Plan Goals: Continue home medications as prescribed. F/U with Cardiology- Dr. Enriquez in one week of discharge. F/U with Neurology- Dr. Joyce in 1-2 weeks of discharge. F/U with PCP within one week of discharge. Continue to work with physical therapy and speech therapy. Return to ED if symptpms recur or worsen. Prescriptions/Referrals Prescriptions/Med Rec: [place] DVT-PE Treat 30D Start 5 mg (74 tabs) tablets,dose pack 5 mg PO BID Qty: 74 0RF aspirin [Adult Low Dose Aspirin] 81 mg tablet,delayed release (DR/EC) 81 mg PO QDAY Qty: 30 0RF atorvastatin 80 mg tablet 80 mg PO QPM Qty: 30 0RF Continued donepezil 10 mg tablet 10 mg PO HS Patient Comments: TAKE 1 TABLET BY MOUTH EVERY DAY WITH FOOD quetiapine 25 mg tablet 25 mg PO HS Patient Comments: TAKE 1 TABLET BY MOUTH EVERY DAY sertraline 100 mg tablet 100 mg PO DAILY Patient Comments: TAKE 1 TABLET BY MOUTH EVERY DAY carvedilol 3.125 mg tablet 3.125 mg PO BID Patient Comments: TAKE 1 TABLET BY MOUTH TWICE A DAY pantoprazole 40 mg tablet,delayed release (DR/EC) 40 mg PO DAILY Patient Comments: TAKE 1 TABLET BY MOUTH EVERY DAY memantine 5 mg tablet 5 mg PO BID Patient Comments: TAKE 1 TABLET BY MOUTH TWICE A DAY losartan-hydrochlorothiazide 100-12.5 mg tablet 1 tab PO DAILY Patient Comments: TAKE 1 TABLET BY MOUTH EVERY DAY Referrals: Sudhakar Willis MD [Primary Care Provider] - Patient/Caregiver Discharge Instructions Education Materials: Understanding Deep Vein Thrombosis, Symptoms of Stroke, Urinary Tract Infections in Men Print Language: Vietnamese Stand Alone Forms: Caroline Award Info., Patient Portal Info Letter Discharge Order Discharge Orders: Discharge (Routine); Ordered 05/25/24 Ordered By: Kb Chan Quality Discharge Quality Measures VTE prophylaxis Attestestation MD Attestation I have examined the patient, reviewed labs and imaging findings, discussed the case with the resident(s), and reviewed entered orders. I agree with the plan of care as outlined in this note. Dr. Napoles
--- NOTE | 2024-05-25 14:43 | PC.SS ---
Addendum entered by Concepcion Tony 05/25/24 15:38: has setup gurney transportation for 7pm to [facility]. has sent patient's facesheet, ambulance form, and OLGA form for transportation to [facility] using [facility]. has provided bedside nurseKerwin and Silvia KIMBLE with [facility] phone# [phone] to cancel transportation if pt does not void. Cinyd Raines is aware. Concetta at [facility] is aware. Original Note: has sent PASRR through file exchange to [facility]. has spoken to Concetta from [facility] who explained they have insurance authorization. has spoken to Vivian from PT who explained pt is maximum assists to transfer and sitting alone in private vehicle. has spoken to Cindy raines pt is unable to pay privately for transportation. spoke to bedside nurseKerwin who explained pt was bleeding after removing cather and pt still requires to void before dc.
--- NOTE | 2024-05-25 19:54 | PC.NURSE ---
Report given to Alfa GREEN at [facility], notified SURGICAL DEVICE SALES REPRESENTATIVE of follow up appointments and discharge instructions. Stroke packet and CHF stoplight provided with discharge instructions.
--- NOTE | 2024-05-25 19:57 | PC.NURSE ---
Dr. Mayorga notified of 307 bladder scan, ordered nugent catheter for discharge. Astrid cabrera notified of urine retention and that patient will be going with nugent catheter placed. STAFFING PROGRAM MANAGER verbalized in report understanding of nugent catheter placement and small blood clots, but catheter draining and patent.
--- NOTE | 2024-05-26 00:16 | ESPR_ITS ---
Documentation for date of: 05/25/24 Subjective Subjective Interval history: Patient was seen in telemetry today. No new symptoms reported. He continues to have mild right hemiparesis with spasticity and contracture in the right upper extremity more than lower. Exam - Neurology Vital Signs Temp Pulse Resp BP Pulse Ox O2 Del Method O2 Flow Rate 98.2 F 86 18 110/69 95 Room Air 3 05/25/24 20:00 05/25/24 20:00 05/25/24 20:00 05/25/24 20:00 05/25/24 20:00 05/25/24 20:00 05/25/24 12:00 FiO2 96 05/23/24 11:58 Narrative Exam GENERAL APPEARANCE: Well hydrated, well-nourished in no acute distress. HEENT: Normocephalic, atraumatic, extraocular movements intact. Pupils: Equal reacting to light and accommodation, tympanic membranes are bilaterally intact. There is no bulge or retraction. Throat without erythema or exudate. Moist oral mucosa. NECK: Supple, no JVD or bruits. CARDIOVASULAR: Heart: S1, S2 heard, regular without S3-S4 or murmur no rubs or gallops. LUNGS/CHEST: Clear to auscultation bilaterally. No rails, rhonchi, or wheezing. Normal inspection. ABDOMEN: Soft, nontender, with normal bowel sounds. No pulsatile masses. No rebound, rigidity, or guarding. Normal inspection and palpation. EXTREMITIES: Normal inspection and palpation. No edema, clubbing or cyanosis. SKIN: Warm and dry without rashes. Normal inspection. MUSCULOSKELETAL: No cervical, thoracic, lumbar or midline bony tenderness. Normal inspection. NEURO: Alert, awake and oriented x2. Cranial nerves: II through XII grossly intact. Speech and language: Normal with no dysarthria or dysphasia. Motor system: Tone and bulk: Normal: Strength: Right hemiparesis affecting upper more than lower, with spasticity and contracture in the right hand. Deep tendon reflexes: 2+ bilaterally symmetrical. Plantar reflex: Downgoing bilaterally. Sensory system: Intact to pinprick sensation bilaterally. Coordination: Intact to skxruo-xijs-hyhzqt and symm-cpti-fwsq test bilaterally. No ataxia, no dysmetria, or dysdiadochokinesia noted. No intention tremors noted. Gait: Not tested. No signs of meningeal irritation noted. PSYCHIATRIC: Normal mood and affect. Objective Labs 05/25/24 04:54 05/25/24 04:54 Labs: Laboratory Results - last 24 hr 05/25/24 05/25/24 05/25/24 00:22 04:54 08:41 WBC 7.1 RBC 3.66 L Hgb 11.9 L Hct 35.3 L MCV 96 MCH 32.5 MCHC 33.7 RDW Std Deviation 50.1 H Plt Count 118 L Neut % (Auto) 60 Lymph % (Auto) 28 [place] % (Auto) 8 Eos % (Auto) 3 Baso % (Auto) 1 Neut # (Auto) 4.3 Lymph # (Auto) 2.0 [place] # (Auto) 0.6 Eos # (Auto) 0.2 Baso # (Auto) 0.1 Immature Gran # (Auto) 0.05 H Absolute Nucleated RBC 0.00 Immature Gran % 1 H Nucleated RBC % 0 PT 12.2 INR 1.1 APTT > 139.0 H* 137.6 H* 113.9 H* D Sodium 144 Potassium 3.3 L D Chloride 108 H Carbon Dioxide 31.2 H Anion Gap 5 L BUN 21 Creatinine 1.0 Estim Creat Clear Calc 59.5 L eGFR > 60 BUN/Creatinine Ratio 21 H Glucose 103 Calculated Osmolality 289 Calcium 8.9 Corrected Calcium 9.3 Magnesium 2.1 Total Bilirubin 0.6 AST 21 ALT 22 Alkaline Phosphatase 86 Total Protein 5.5 L Albumin 3.5 D Globulin 2.0 L Albumin/Globulin Ratio 1.8 Assessment & Plan Assessment and plan (1) Acute CVA (cerebrovascular accident): Status: Acute Assessment and plan: MRI brain from 05/22/2024 showed multiple acute embolic type infarcts involving the left cerebral hemisphere Contrasted study: Negative for vasculitis Echocardiogram: Ejection fraction: 45 to 50%, negative for bubble study Continue with anticoagulation and statin Continue with physical therapy for range of motion (2) Dementia: Status: Chronic Assessment and plan: Vascular dementia pattern seen in MRI brain. Continue with blood pressure control, memantine and donepezil to slow down progression (3) DVT (deep venous thrombosis): Status: Acute Assessment and plan: Confirmed by venous Doppler of both lower extremities Continue with heparin as per primary team
== END 2024-05-25 20:04 | disposition skilled nursing facility (03) | DRG 64 ==
LOC: SERX 09:41 → SERHOLD 12:02 → S2NX 22:01
PROVIDERS: Admitting Provider Student in an Organized Health Care Education/Training Program; Emergency Provider Emergency Medicine; PCP Internal Medicine; Visit Provider Student in an Organized Health Care Education/Training Program
DX: I63.412 Cerebral infarction due to embolism of left middle cerebral artery (principal); I50.23 Acute on chronic systolic (congestive) heart failure; F01.A3 Vascular dementia, mild, with mood disturbance; I82.412 Acute embolism and thrombosis of left femoral vein; I82.401 Acute embolism and thrombosis of unspecified deep veins of right lower extremity; N39.0 Urinary tract infection, site not specified; R78.81 Bacteremia; G81.91 Hemiplegia, unspecified affecting right dominant side; I63.432 Cerebral infarction due to embolism of left posterior cerebral artery; R29.810 Facial weakness; R47.1 Dysarthria and anarthria; R29.707 NIHSS score 7; E78.5 Hyperlipidemia, unspecified; R47.01 Aphasia; F32.9 Major depressive disorder, single episode, unspecified; I11.0 Hypertensive heart disease with heart failure; I35.0 Nonrheumatic aortic (valve) stenosis; I44.0 Atrioventricular block, first degree; I44.7 Left bundle-branch block, unspecified; I48.91 Unspecified atrial fibrillation; K21.9 Gastro-esophageal reflux disease without esophagitis; E87.6 Hypokalemia; Z86.73 Personal history of transient ischemic attack (TIA), and cerebral infarction without residual deficits; Z79.899 Other long term (current) drug therapy
CPT/HCPCS: 36415; 70450; 70496; 70498; 70544; 70552; 80053; 80061; 80307; 81001; 83036; 83735; 84100; 84145; 84443; 84484; 85025; 85610; 85730; 87040; 87077; 87086; 87186; 92507; 92523; 92610; 93005; 93306; 93970; 95816; 96365; 97162; 99285; A4649; A9579; J0696; J1643; J1644; Q9967; A9270

== ENCOUNTER 2024-06-05 15:38 | Emergency (ER) | payer MEDICARE, SELFPAY ==
[2024-06-05 15:43] VITALS: BP 95/60; PULSE 54; RESP 20; TEMP 36.6; O2SAT 97
--- NOTE | 2024-06-05 15:53 | PD.EDADULT ---
ED General RME/HPI General Chief complaint: Syncope / Near Syncope Stated complaint: WEAKNESS, NEAR SYNCOPAL EPISODE Time Seen by Provider: 06/05/24 15:53 Arrival date/time: 06/05/24 15:38 CC: Near syncope HPI patient presents to the ER via EMS for reported bradycardia but otherwise stable vital signs with a near syncopal episode at the doctor's office. Patient is coming from [facility] care facility to his primary care provider. Patient's documentation shows the patient is a DNR patient has no specific complaints other than feeling weak. Patient is noted to be on carvedilol but no other beta or Calcium channel blockers. Past medical history includes a CVA with a right-sided hemiaplasia dementia. The patient is responding to all questions with delayed sponsors that are appropriate. Patient's daughter at bedside states the patient is a DNR, she showed me paperwork that she had on her that showed DNR DNI but is not specific as to treatment modalities prior to this when pressed slightly the daughter states that she wants basic blood work and a little bit of fluids for the hypotension. She states if the gross abnormalities in the blood work then he is to be comfort care only. Patient's family member state the patient has been bed ridden laying in the bed for the last 2 weeks and when they sat him upright for his cardiac appointment is when he had a near syncope episode. Related Data Home Medications ?Medication ?Instructions ?Recorded ?Confirmed carvedilol 3.125 mg tablet 3.125 mg PO BID 05/22/24 05/22/24 donepezil 10 mg tablet 10 mg PO HS 05/22/24 05/22/24 losartan 100 1 tab PO DAILY 05/22/24 05/22/24 mg-hydrochlorothiazide 12.5 mg tablet memantine 5 mg tablet 5 mg PO BID 05/22/24 05/22/24 pantoprazole 40 mg tablet,delayed 40 mg PO DAILY 05/22/24 05/22/24 release quetiapine 25 mg tablet 25 mg PO HS 05/22/24 05/22/24 sertraline 100 mg tablet 100 mg PO DAILY 05/22/24 05/22/24 Previous Rx's ?Medication ?Instructions ?Recorded apixaban 5 mg (74 tabs) tablets in 5 mg PO BID #74 tabs 05/25/24 a dose pack ([email or web address] DVT-PE Treat 30D Start) aspirin 81 mg tablet,delayed 81 mg PO QDAY #30 tabs 05/25/24 release (Adult Low Dose Aspirin) atorvastatin 80 mg tablet 80 mg PO QPM #30 tabs 05/25/24 Allergies Allergy/AdvReac Type Severity Reaction Status Date / Time No Known Allergies Allergy Verified 06/05/24 16:18 Review of Systems Review of Systems Narrative Review of Systems: [General: Appears not in any acute distress Head normocephalic HEENT: Within acceptable limits Neck is supple nontender Chest equal chest rise nontender to palpation Respiratory: Clear to auscultation no wheezes crackles or rubs CV: Rate rhythm is regular no murmurs rubs or clicks Abdomen is distended secondary to body habitus soft nontender no masses positive bowel sounds all 4 quadrants Back: No CVA tenderness no spinous process tenderness from cervical spine thoracic and lumbar spine Skin: Intact no petechiae rash induration ulceration or crepitus Extremities: Moving all extremity against resistance cap refill less than 2 seconds neurosensory intact Neuro: Awake alert oriented x3 Glascow coma 15 no focal deficits] Past Medical History Past Medical History NEUROLOGIC: Positive Dementia and Alzheimer's Disease CARDIAC: Positive Cardiac Disorders and Hypertension; Negative Congestive Heart Failure RESPIRATORY: Negative Chronic Obstructive Pulmonary Disease (COPD) GASTROINTESTINAL: Positive Gastroesophageal Reflux Disease GENITOURINARY: Negative Renal Disease MUSCULOSKELETAL: Positive Arthritis ENDOCRINE: Negative Diabetes Mellitus Type 1 or Diabetes Mellitus Type 2 Social History SMOKING STATUS: Former smoker ED Exam Narrative Physical exam: [General: Obese not in any acute distress Head normocephalic HEENT: Within acceptable limits Neck is supple nontender Chest equal chest rise nontender to palpation Respiratory: Clear to auscultation no wheezes crackles or rubs CV: Rate rhythm is regular no murmurs rubs or clicks Abdomen is distended secondary to body habitus soft nontender no masses positive bowel sounds all 4 quadrants Back: No CVA tenderness no spinous process tenderness from cervical spine thoracic and lumbar spine Skin: Intact no petechiae rash induration ulceration or crepitus Extremities: Moving all extremity against resistance cap refill less than 2 seconds neurosensory intact Neuro: Awake alert oriented x2, person and place, Glascow coma 15 no focal deficits] Course Quality Measures none Orders Category Date Time Status EKG (ED ONLY) *Do not use* NOW Care 06/05/24 15:53 Completed In and Out Catheter X1 Care 06/05/24 18:05 Completed EKG (ED Only) Stat Exams 06/05/24 15:53 Ordered CBC Stat Lab 06/05/24 16:27 Completed Comprehensive Metabolic Panel Stat Lab 06/05/24 16:27 Completed LDH (Lactate Dehydrogenase) Stat Lab 06/05/24 16:27 Completed Magnesium Stat Lab 06/05/24 16:27 Completed Troponin I Stat Lab 06/05/24 16:27 Completed Urinalysis Stat Lab 06/05/24 17:54 Completed Sodium Chloride 0.9% 500 ml [Ns] 500 ml Med 06/05/24 16:22 Discontinued IV 999 mls/hr Vital Signs Vital signs: Vital Signs Temperature 97.8 F 06/05/24 15:43 Pulse Rate 54 L 06/05/24 15:43 Respiratory Rate 20 06/05/24 15:43 Blood Pressure 95/60 06/05/24 15:43 Pulse Oximetry (%) 97 06/05/24 15:43 Oxygen Delivery Method Room Air 06/05/24 15:43 MDM Patient data External records reviewed:: [facility] previous records and EMS form Clinical information provided by:: patient and EMS Social determinants that could affect healthcare access:: none Patient has the following chronic illnesses:: CVA left-sided hemiaplasia dementia How is presenting disease/condition affected by chronic disease/condition?: uneffected by Evaluation data The following diagnostics were reviewed and interpreted by me:: lab results, radiology exam(s) and EKG tracing(s) Lab and/or radiology exams considered but not ordered:: EKG performed at 1555 shows a ventricular rate of 6 5 VT interval 269 QRS of 144 QTc of 493 this is atrial rhythm left axis deviation. When compared to an old EKG from 4 days ago there are no significant changes. Interpretation Summary: Mild fluid depletion Medications Medications considered but not ordered:: None Medication administrations:: Medication Administration History Discontinued Medications Sodium Chloride (Ns) 500 mls @ 999 mls/hr IV .Q31M ONE Stop: 06/05/24 16:52 Last Infusion: 06/05/24 17:12 Dose: Infused Documented By: Admin: 06/05/24 16:41 Dose: 999 mls/hr Documented By: DO None Consultations Consultation(s) initiated? (list below): No Diagnosis Differential Diagnosis ED Complaint MDM: UTI anemia electrolyte imbalance and dehydration Most likely diagnosis given after review of the tests above:: Mild dehydration Admission Indicated Admission indicated?: not indicated Explain why admission is indicated or not indicated:: Stable for discharge Admission Request Was there a request for admission?: No Disposition Plan Disposition Plan: Discharge Discharge Attestation Discharge Attestation: The patient and all family members were given an opportunity to ask questions and understood the discharge instructions. Discharge instructions specifically effects, indications for sooner follow up or return to the emergency department, and the expected course of current diagnosis. Patient condition: Stable Medical Decision Making Differential Diagnosis Differential Diagnosis: UTI anemia electrolyte imbalance and dehydration Lab Data 06/05/24 16:27 06/05/24 16:27 Labs: Lab Results 06/05/24 06/05/24 Range/Units 16:27 17:54 WBC 9.1 (3.8-10.6) Thou/mm3 RBC 3.80 L (4.50-5.90) Miln/mm3 Hgb 12.1 L (13.5-16.0) g/dL Hct 36.6 L (41.0-53.0) % MCV 96 (80-100) fL MCH 31.8 (25.0-35.0) pg MCHC 33.1 (31.0-37.0) g/dl RDW Std Deviation 48.9 H (35.1-43.9) fL Plt Count 167 D (140-440) Thou/mm3 Neut % (Auto) 84 H (37-80) % Lymph % (Auto) 10 (10-50) % [place] % (Auto) 4 (0-12) % Eos % (Auto) 0 (0-10) % Baso % (Auto) 0 (0-2.5) % Neut # (Auto) 7.7 (1.8-7.7) Thou/mm3 Lymph # (Auto) 0.9 L (1.0-4.8) Thou/mm3 [place] # (Auto) 0.4 (0.0-0.8) Thou/mm3 Eos # (Auto) 0.0 (0.0-0.5) Thou/mm3 Baso # (Auto) 0.0 (0.0-0.2) Thou/mm3 Immature Gran # (Auto) 0.05 H (0.00-0.00) Thou/mm3 Absolute Nucleated RBC 0.00 (0.00-0.00) Thou/mm3 Immature Gran % 1 H (0-0) % Nucleated RBC % 0 (0) /100 WBC Sodium 141 (136-145) mMol/L Potassium 3.8 (3.4-5.1) mMol/L Chloride 103 (98-107) mMol/L Carbon Dioxide 29.1 (20.0-31.0) mMol/L Anion Gap 9 (7-16) BUN 22 (9-23) mg/dL Creatinine 1.6 H (0.6-1.3) mg/dL Estim Creat Clear Calc 45.0 L (>60) mL/min eGFR 43 L (60 - ) See Note BUN/Creatinine Ratio 14 (12-20) Ratio Glucose 164 H (74-106) mg/dL Calculated Osmolality 288 (275-295) Calcium 9.2 (8.3-10.6) mg/dL Corrected Calcium 9.2 (8.5-10.1) mg/dL Magnesium 1.9 (1.6-2.6) mg/dL Total Bilirubin 1.0 (0.3-1.2) mg/dL AST 25 (0-34) U/L ALT 30 (10-49) U/L Alkaline Phosphatase 112 (46-116) U/L Lactate Dehydrogenase 178 (120-246) U/L Troponin I < 0.020 (0.0-0.045) ng/mL Total Protein 6.4 (5.7-8.2) gm/dL Albumin 4.2 (3.4-4.8) gm/dL Globulin 2.2 L (2.3-3.5) gm/dL Albumin/Globulin Ratio 1.9 (1.2-2.2) Ur Collection Type Clean Catch Urine Color Yellow (Lt Yel-Yel) Urine Clarity Clear (Clear/Hazy) Urine pH 5.5 (5.0-7.0) Ur Specific [place] 1.022 (1.001-1.035) Urine Protein Negative (Neg - Trace) Urine Glucose (UA) Negative (Negative) Urine Ketones Negative (Negative) Urine Blood Negative (Negative) Urine Nitrite Negative (Negative) Urine Bilirubin Negative (Negative) Urine Urobilinogen (Auto) Negative (0.0-1.0) mg/dL Ur Leukocyte Esterase Positive (Negative) Urine RBC 2 (0-3) /hpf Urine WBC 6 H (0-5) /hpf Ur Squamous Epith Cells 1 (0-5) /hpf Urine Bacteria None (None) Hyaline Casts < 1 (0-1) /hpf Discharge Plan Plan Patient Disposition: HOME (Self Care) Patient condition on transfer: Stable Prescriptions/Referrals Prescriptions/Med Rec: No Action donepezil 10 mg tablet 10 mg PO HS Patient Comments: TAKE 1 TABLET BY MOUTH EVERY DAY WITH FOOD quetiapine 25 mg tablet 25 mg PO HS Patient Comments: TAKE 1 TABLET BY MOUTH EVERY DAY sertraline 100 mg tablet 100 mg PO DAILY Patient Comments: TAKE 1 TABLET BY MOUTH EVERY DAY carvedilol 3.125 mg tablet 3.125 mg PO BID Patient Comments: TAKE 1 TABLET BY MOUTH TWICE A DAY pantoprazole 40 mg tablet,delayed release (DR/EC) 40 mg PO DAILY Patient Comments: TAKE 1 TABLET BY MOUTH EVERY DAY memantine 5 mg tablet 5 mg PO BID Patient Comments: TAKE 1 TABLET BY MOUTH TWICE A DAY losartan-hydrochlorothiazide 100-12.5 mg tablet 1 tab PO DAILY Patient Comments: TAKE 1 TABLET BY MOUTH EVERY DAY Eliquis DVT-PE Treat 30D Start 5 mg (74 tabs) tablets,dose pack 5 mg PO BID Qty: 74 0RF aspirin [Adult Low Dose Aspirin] 81 mg tablet,delayed release (DR/EC) 81 mg PO QDAY Qty: 30 0RF atorvastatin 80 mg tablet 80 mg PO QPM Qty: 30 0RF Referrals: Sudhakar Willis MD [Primary Care Provider] - In 1 week Problem List Clinical Impression: Near syncope Patient/Caregiver Discharge Instructions Education Materials: ED Near-Fainting, Uncertain Cause Additional Instructions: As the patient is bed ridden please lift the patient up or set the patient up slowly to allow his body to adjust to the vertical position. Print Language: Turkmen Stand Alone Forms: Caroline Award Info., Patient Portal Info Letter PA/TECHNOLOGIES DIVISION CHAIR Supervising Physician JENNIFER/LC Supervising Physician: Jacky Brown ENP
[2024-06-05 16:10] VITALS: PULSE 48; O2SAT 91; BMI 36.0
[2024-06-05] MEDS: SODIUM CHLORIDE 0.9% 500 ML 500 ML 999 ML IV (16:41)
[2024-06-05 16:50] LABS: Basophils % (Auto) 0 % (0-2.5); Eosinophils % (Auto) 0 % (0-10); Hematocrit 36.6 % (41.0-53.0); Hemoglobin 12.1 g/dL (13.5-16.0); Immature Granulocytes % (Auto) 1 % (0-0); Immature Granulocytes Auto 0.05 Thou/mm3 (0.00-0.00); Lymphocytes # (Auto) 0.9 Thou/mm3 (1.0-4.8); Lymphocytes % (Auto) 10 % (10-50); Mean Corpuscular HGB Conc 33.1 g/dl (31.0-37.0); Mean Corpuscular Hemoglobin 31.8 pg (25.0-35.0); Mean Corpuscular Volume 96 fL (80-100); Monocytes # (Auto) 0.4 Thou/mm3 (0.0-0.8); Monocytes % (Auto) 4 % (0-12); Neutrophils # (Auto) 7.7 Thou/mm3 (1.8-7.7); Neutrophils % (Auto) 84 % (37-80); Nucleated Red Blood Cell % 0 /100 WBC (0); Platelet Count 167 Thou/mm3 (140-440); RDW Standard Deviation 48.9 fL (35.1-43.9); White Blood Count 9.1 Thou/mm3 (3.8-10.6)
[2024-06-05 17:10] LABS: Alanine Aminotransferase 30 U/L (10-49); Albumin, Serum 4.2 gm/dL (3.4-4.8); Albumin/Globulin Ratio 1.9 (1.2-2.2); Alkaline Phosphatase 112 U/L (46-116); Anion Gap 9 (7-16); Aspartate Amino Transferase 25 U/L (0-34); BUN/Creatinine Ratio 14 Ratio (12-20); Blood Urea Nitrogen 22 mg/dL (9-23); Calcium 9.2 mg/dL (8.3-10.6); Calcium (Corrected) 9.2 mg/dL (8.5-10.1); Carbon Dioxide 29.1 mMol/L (20.0-31.0); Chloride 103 mMol/L (98-107); Creatinine (Component) 1.6 mg/dL (0.6-1.3); Globulin 2.2 gm/dL (2.3-3.5); Glucose 164 mg/dL (74-106); LDH (Lactate Dehydrogenase) 178 U/L (120-246); Magnesium 1.9 mg/dL (1.6-2.6); Osmolality,Calculated 288 (275-295); Potassium 3.8 mMol/L (3.4-5.1); Sodium 141 mMol/L (136-145); Total Protein 6.4 gm/dL (5.7-8.2); Troponin I < 0.020 ng/mL (0.0-0.045); eGFR 43 See Note
[2024-06-05 17:59] LABS: Collection Type, Urine Clean Catch
[2024-06-05 18:10] VITALS: BP 114/70; PULSE 48; RESP 16; TEMP 36.4; O2SAT 100
[2024-06-05 18:14] LABS: Bilirubin,Urine Negative (Negative); Blood,Urine Negative (Negative); Clarity,Urine Clear (Clear/Hazy); Color,Urine Yellow (Lt Yel-Yel); Glucose, Urine Negative (Negative); Hyaline Casts,Urine < 1 /hpf (0-1); Ketones,Urine Negative (Negative); Leukocyte Esterase,Urine Positive (Negative); Nitrite,Urine Negative (Negative); PH,Urine 5.5 (5.0-7.0); Protein,Urine Negative (Neg - Trace); RBC,Urine 2 /hpf (0-3); Specific Gravity,Urine 1.022 (1.001-1.035); Squamous Epithelial Cell,Urine 1 /hpf (0-5); Urobilinogen,Urine Negative mg/dL (0.0-1.0); WBC,Urine 6 /hpf (0-5)
[2024-06-05 19:00] VITALS: BP 103/59; PULSE 65; RESP 18
--- NOTE | 2024-06-05 19:09 | PC.CC ---
PRODUCT PROMOTER SALES PERSON CC engaged to arrange transport for pt back [facility]. Pt with hx of RT sided hemiaplagia and dementia. Upon review of pts chart, pt does not have health coverage for [employer] transport. OLGA signed. PCS, OLGA and FS uploaded to [employer]. 1849-PRODUCT PROMOTER SALES PERSON CC made contact with [employer] who request PCSa nd other documents be hard faxed instead of uploaded to [employer]. PRODUCT PROMOTER SALES PERSON CC attempted to fax documentation using 2 different hard fax machines and [employer] fax. Fax pending redial. 1903-Call back to [employer] to inform of barriers. Per [employer] paperwork retrieved via [employer]. Transport arranged with [facility] transport ETA.
[2024-06-05 21:01] VITALS: BP 98/72; PULSE 67; RESP 18; O2SAT 94
[2024-06-05 21:16] VITALS: BP 149/74; PULSE 65; RESP 20; O2SAT 95
== END 2024-06-05 21:17 | disposition home or self-care (01) ==
PROVIDERS: Registered Nurse General Practice; Emergency Provider Emergency Medicine; PCP Internal Medicine
DX: R55 Syncope and collapse (principal); Z66 Do not resuscitate; I69.351 Hemiplegia and hemiparesis following cerebral infarction affecting right dominant side
CPT/HCPCS: 51701; 36415; 80053; 80307; 81001; 83615; 83735; 83880; 84484; 85025; 85610; 85730; 93005; 96360; 96361; 99284; J7040

== ENCOUNTER 2024-07-10 10:23 | Emergency (ER) | payer MEDICARE, SELFPAY ==
[2024-07-10 10:34] VITALS: PULSE 66; O2SAT 99; BMI 27.3
[2024-07-10 10:40] VITALS: BP 94/63; PULSE 64; RESP 19; TEMP 36.6; O2SAT 96
--- NOTE | 2024-07-10 11:23 | EKG_ITS ---
[facility] Test Date: 2024-07-10 Pat Name: CLARICE PEDERSEN Department: Room: - Gender: Male Orthophoto Tech/Draftsman: : 1940 Requested By: Jacky Jacinto Order Number: [id number] Reading MD: Jacky Jacinto Measurements Intervals [place] Rate: 62 P: -41 MN: 313 QRS: -35 QRSD: 149 T: 141 QT: 503 QTc: 514 Interpretive Statements SINUS RHYTHM WITH FIRST DEGREE AV BLOCK MARKED LEFT AXIS DEVIATION [QRS AXIS < -30] LEFT BUNDLE BRANCH BLOCK [120+ ms QRS DURATION, 80+ ms Q/S IN V1/V2, 85+ ms R IN I/aVL/V5/V6] Compared to ECG 05/24/2024 15:34:02 Left-axis deviation now present /store/S0/[id number].pdf
--- NOTE | 2024-07-10 11:23 | XR_ITS ---
Examination: CT brain head without contrast. 2-D sagittal coronal reconstructions Date and time of exam:July 10, 2024 1140 hours INDICATIONS: Syncopal episode today, secondary diagnosis cerebellar bilateral infarcts, old infarct left occipital lobe on CT study May 22, 2024 COMPARISON: May 22, 2024 CTDI: vol (mGy):51 DLP: (mGycm):1040 Technique: Multiple CT axial sections of the brain have been obtained, 5 mm slice thickness. Contrast has not been administered. 2-D sagittal, coronal reconstructions have been obtained Low dose protocols were performed. One or more of the following dose reduction techniques were used; automated exposure control, adjustment of the mA and/or KV according to patient size, use of iterative reconstruction technique. Findings: Encephalomalacia in the left frontal lobe left temporal lobe Large old infarct left caudate nucleus with mild ipsilateral ventricular enlargement Bilateral basal ganglia infarcts in the thalamic region noted on the prior study Old infarcts bilateral cerebellar hemispheres No acute hemorrhage No mass effect IMPRESSION: Numerous old infarcts as above As clinically warranted, brain MRI follow-up would best assess for acute ischemic change
--- NOTE | 2024-07-10 11:23 | PD.EDADULT ---
ED General RME/HPI General Chief complaint: Neuro Symptoms/Deficit Stated complaint: STROKE Time Seen by Provider: 07/10/24 11:03 Arrival date/time: 07/10/24 10:23 CC: Syncope HPI patient presents to the ER via EMS for reported syncopal event [facility]. Patient was recently discharged from this facility for CVA. The patient has right upper extremity atrophy and contractures. The patient is awake alert oriented times to person and place no specific complaints family member at bedside said the patient passed out . But also states since discharge the patient would fall asleep during conversations would have to be woken up in the conversations restarted again. Patient is in good spirits and appears not in any acute distress. Related Data Home Medications ?Medication ?Instructions ?Recorded ?Confirmed carvedilol 3.125 mg tablet 3.125 mg PO BID 05/22/24 05/22/24 donepezil 10 mg tablet 10 mg PO HS 05/22/24 05/22/24 losartan 100 1 tab PO DAILY 05/22/24 05/22/24 mg-hydrochlorothiazide 12.5 mg tablet memantine 5 mg tablet 5 mg PO BID 05/22/24 05/22/24 pantoprazole 40 mg tablet,delayed 40 mg PO DAILY 05/22/24 05/22/24 release quetiapine 25 mg tablet 25 mg PO HS 05/22/24 05/22/24 sertraline 100 mg tablet 100 mg PO DAILY 05/22/24 05/22/24 Previous Rx's ?Medication ?Instructions ?Recorded apixaban 5 mg (74 tabs) tablets in 5 mg PO BID #74 tabs 05/25/24 a dose pack (Eliquis DVT-PE Treat 30D Start) aspirin 81 mg tablet,delayed 81 mg PO QDAY #30 tabs 05/25/24 release (Adult Low Dose Aspirin) atorvastatin 80 mg tablet 80 mg PO QPM #30 tabs 05/25/24 Allergies Allergy/AdvReac Type Severity Reaction Status Date / Time No Known Allergies Allergy Verified 06/05/24 16:18 Review of Systems Review of Systems Narrative Review of Systems: GEN: No fever, no chills, no weight loss EYES: No discharge, no visual changes, no pain HEENT: No ear pain, no congestion, no sore throat PULM: No shortness of breath, no cough, no congestion CV: No chest pain, no dyspnea on exertion, no palpitations GI: No nausea, no vomiting, no diarrhea, no pain, no constipation : No frequency, no urgency, no dysuria MUSC/SKEL: No joint pain, no back pain SKIN: No rash PSYCH: No hallucinations, no depression HEME/LYMPH: No easy bleeding or bruising tendencies NEURO: No weakness, no headache Past Medical History Past Medical History NEUROLOGIC: Positive Dementia and Alzheimer's Disease CARDIAC: Positive Cardiac Disorders and Hypertension; Negative Congestive Heart Failure RESPIRATORY: Negative Chronic Obstructive Pulmonary Disease (COPD) GASTROINTESTINAL: Positive Gastroesophageal Reflux Disease GENITOURINARY: Negative Renal Disease MUSCULOSKELETAL: Positive Arthritis ENDOCRINE: Negative Diabetes Mellitus Type 1 or Diabetes Mellitus Type 2 Social History SMOKING STATUS: Never smoker ED Exam Narrative Physical exam: [General: Appears not in anyacute distress Head normocephalic HEENT: Eyes pupils are PERRLA EOMs are intact tracking without complication mouth pink dry membranes uvula is midline swallow symmetrical phonation is normal nose no rhinorrhea. Face no facial asymmetry. All other subsystems of HEENT are within acceptable limits Neck is supple nontender no JVD no edema Chest equal chest rise nontender to palpation Respiratory: Clear to auscultation no wheezes crackles or rubs CV: Rate rhythm is regular no murmurs rubs or clicks Abdomen is distended secondary to body habitus soft nontender no masses positive bowel sounds all 4 quadrants Back: No CVA tenderness no spinous process tenderness from cervical spine thoracic and lumbar spine Skin: Intact no petechiae rash induration ulceration or crepitus Extremities: Right upper extremity contracted and rigid secondary to old stroke. moving all other extremities against resistance cap refill less than 2 seconds neurosensory intact Neuro: Awake alert oriented x2, person and place Glascow coma 15 no focal deficits] cranial nerves II through XII grossly intact. Course Course Course Narrative: Laboratory results show the patient had an elevated BUN but no other acute findings. The patient was given a liter of fluid at this time patient will be discharged home. Quality Measures VTE prophylaxis Orders Category Date Time Status EKG (ED ONLY) *Do not use* NOW Care 07/10/24 11:[address] head/brain wo con Stat Exams 07/10/24 11:23 Completed EKG (ED Only) Stat Exams 07/10/24 11:23 Draft B-Type Natriuretic Peptide Stat Lab 07/10/24 11:49 Completed CBC Stat Lab 07/10/24 11:49 Completed Comprehensive Metabolic Panel Stat Lab 07/10/24 11:49 Completed Drug Screen,Urine Stat Lab 07/10/24 11:23 Ordered LDH (Lactate Dehydrogenase) Stat Lab 07/10/24 11:49 Completed Magnesium Stat Lab 07/10/24 11:49 Completed Partial Thromboplastin Time Stat Lab 07/10/24 11:49 Completed Prothrombin Time with INR Stat Lab 07/10/24 11:49 Completed Troponin I Stat Lab 07/10/24 11:49 Completed Urinalysis Stat Lab 07/10/24 11:23 Ordered Sodium Chloride 0.9% 1000 ml [Ns] 1,000 ml Med 07/10/24 14:02 Active IV 999 mls/hr Vital Signs Vital signs: Vital Signs Temperature 97.9 F 07/10/24 10:40 Pulse Rate 64 07/10/24 10:40 Respiratory Rate 19 07/10/24 10:40 Blood Pressure 94/63 07/10/24 10:40 Pulse Oximetry (%) 96 07/10/24 10:40 Oxygen Delivery Method Room Air 07/10/24 10:40 [facility] Patient data External records reviewed:: [facility] previous records and EMS form Clinical information provided by:: patient and EMS Social determinants that could affect healthcare access:: none Patient has the following chronic illnesses:: Recent CVA How is presenting disease/condition affected by chronic disease/condition?: uneffected by Evaluation data The following diagnostics were reviewed and interpreted by me:: lab results, radiology exam(s) and EKG tracing(s) Lab and/or radiology exams considered but not ordered:: EKG performed at 1204 shows a ventricular rate of 62 GA interval 1313 QRS of 149 QTc of 409 this is sinus rhythm first-degree block. Left axis deviation. CBC shows no significant leukocytosis stable anemia no thrombocytopenia CMP shows mildly elevated glucose at 148, elevated BUN at 25 otherwise, no other electrolyte imbalances renal impairment or transaminitis. CT of the head is interpreted by me read by radiology shows numerous old infarcts Coags within acceptable limits Interpretation Summary: I suspect the patient is mildly dehydrated resulting in these syncopal or near syncopal events. The patient will be given a liter of fluid and then reassessed. Discussed all the findings with the family member at bedside. Medications Medications considered but not ordered:: None Medication administrations:: Medication Administration History Sodium Chloride (Ns) 1,000 mls @ 999 mls/hr IV .Q1H1M ONE Stop: 07/10/24 15:02 Last Admin: 07/10/24 14:08 Dose: 999 mls/hr Documented By: HERB None Consultations Consultation(s) initiated? (list below): No Diagnosis Differential Diagnosis ED Complaint MDM: Electrolyte imbalances CVA IL dehydration Most likely diagnosis given after review of the tests above:: Syncope dehydration Admission Indicated Admission indicated?: not indicated Explain why admission is indicated or not indicated:: Stable for outpatient follow-up Admission Request Was there a request for admission?: No Disposition Plan Disposition Plan: Discharge Discharge Attestation Discharge Attestation: The patient and all family members were given an opportunity to ask questions and understood the discharge instructions. Discharge instructions specifically effects, indications for sooner follow up or return to the emergency department, and the expected course of current diagnosis. Patient condition: Stable Medical Decision Making Differential Diagnosis Differential Diagnosis: Electrolyte imbalances CVA IL dehydration Lab Data 07/10/24 11:49 07/10/24 11:49 Labs: Lab Results 07/10/24 Range/Units 11:49 WBC 7.9 (3.8-10.6) Thou/mm3 RBC 3.77 L (4.50-5.90) Miln/mm3 Hgb 12.2 L (13.5-16.0) g/dL Hct 36.6 L (41.0-53.0) % MCV 97 (80-100) fL MCH 32.4 (25.0-35.0) pg MCHC 33.3 (31.0-37.0) g/dl RDW Std Deviation 50.6 H (35.1-43.9) fL Plt Count 150 (140-440) Thou/mm3 Neut % (Auto) 78 (37-80) % Lymph % (Auto) 14 (10-50) % Cole % (Auto) 6 (0-12) % Eos % (Auto) 1 (0-10) % Baso % (Auto) 1 (0-2.5) % Neut # (Auto) 6.1 (1.8-7.7) Thou/mm3 Lymph # (Auto) 1.1 (1.0-4.8) Thou/mm3 Cole # (Auto) 0.5 (0.0-0.8) Thou/mm3 Eos # (Auto) 0.1 (0.0-0.5) Thou/mm3 Baso # (Auto) 0.0 (0.0-0.2) Thou/mm3 Immature Gran # (Auto) 0.03 H (0.00-0.00) Thou/mm3 Absolute Nucleated RBC 0.00 (0.00-0.00) Thou/mm3 Immature Gran % 0 (0-0) % Nucleated RBC % 0 (0) /100 WBC PT 12.4 H (9.0-12.2) Seconds INR 1.1 (0.9-1.3) APTT 27.6 (22.0-36.0) Seconds Sodium 142 (136-145) mMol/L Potassium 3.6 (3.4-5.1) mMol/L Chloride 106 (98-107) mMol/L Carbon Dioxide 29.8 (20.0-31.0) mMol/L Anion Gap 6 L (7-16) BUN 25 H (9-23) mg/dL Creatinine 1.2 (0.6-1.3) mg/dL Estim Creat Clear Calc 45.9 L (>60) mL/min eGFR > 60 (60 - ) See Note BUN/Creatinine Ratio 21 H (12-20) Ratio Glucose 148 H (74-106) mg/dL Calculated Osmolality 290 (275-295) Calcium 9.1 (8.3-10.6) mg/dL Corrected Calcium 9.2 (8.5-10.1) mg/dL Magnesium 2.0 (1.6-2.6) mg/dL Total Bilirubin 1.0 (0.3-1.2) mg/dL AST 23 (0-34) U/L ALT 35 (10-49) U/L Alkaline Phosphatase 84 (46-116) U/L Lactate Dehydrogenase 188 (120-246) U/L Troponin I 0.022 (0.0-0.045) ng/mL B-Natriuretic Peptide 100 (0-100) pg/mL Total Protein 6.0 (5.7-8.2) gm/dL Albumin 3.9 (3.4-4.8) gm/dL Globulin 2.1 L (2.3-3.5) gm/dL Albumin/Globulin Ratio 1.9 (1.2-2.2) Discharge Plan Plan Patient Disposition: HOME (Self Care) Patient condition on transfer: Stable Prescriptions/Referrals Prescriptions/Med Rec: No Action donepezil 10 mg tablet 10 mg PO HS Patient Comments: TAKE 1 TABLET BY MOUTH EVERY DAY WITH FOOD quetiapine 25 mg tablet 25 mg PO HS Patient Comments: TAKE 1 TABLET BY MOUTH EVERY DAY sertraline 100 mg tablet 100 mg PO DAILY Patient Comments: TAKE 1 TABLET BY MOUTH EVERY DAY carvedilol 3.125 mg tablet 3.125 mg PO BID Patient Comments: TAKE 1 TABLET BY MOUTH TWICE A DAY pantoprazole 40 mg tablet,delayed release (DR/EC) 40 mg PO DAILY Patient Comments: TAKE 1 TABLET BY MOUTH EVERY DAY memantine 5 mg tablet 5 mg PO BID Patient Comments: TAKE 1 TABLET BY MOUTH TWICE A DAY losartan-hydrochlorothiazide 100-12.5 mg tablet 1 tab PO DAILY Patient Comments: TAKE 1 TABLET BY MOUTH EVERY DAY Eliquis DVT-PE Treat 30D Start 5 mg (74 tabs) tablets,dose pack 5 mg PO BID Qty: 74 0RF aspirin [Adult Low Dose Aspirin] 81 mg tablet,delayed release (DR/EC) 81 mg PO QDAY Qty: 30 0RF atorvastatin 80 mg tablet 80 mg PO QPM Qty: 30 0RF Referrals: Sudhakar Willis MD [Primary Care Provider] - In 1 week Problem List Clinical Impression: Syncope, Dehydration Patient/Caregiver Discharge Instructions Education Materials: Causes of Syncope, Dehydration Print Language: Khmer Stand Alone Forms: Caroline Award Info., Patient Portal Info Letter PA/MORTGAGE LOAN COMPUTATION CLERK Supervising Physician PA/MORTGAGE LOAN COMPUTATION CLERK Supervising Physician: Jacky Brown ENP
[2024-07-10 12:01] LABS: Basophils % (Auto) 1 % (0-2.5); Eosinophils # (Auto) 0.1 Thou/mm3 (0.0-0.5); Eosinophils % (Auto) 1 % (0-10); Hematocrit 36.6 % (41.0-53.0); Hemoglobin 12.2 g/dL (13.5-16.0); Immature Granulocytes % (Auto) 0 % (0-0); Immature Granulocytes Auto 0.03 Thou/mm3 (0.00-0.00); Lymphocytes # (Auto) 1.1 Thou/mm3 (1.0-4.8); Lymphocytes % (Auto) 14 % (10-50); Mean Corpuscular HGB Conc 33.3 g/dl (31.0-37.0); Mean Corpuscular Hemoglobin 32.4 pg (25.0-35.0); Mean Corpuscular Volume 97 fL (80-100); Monocytes # (Auto) 0.5 Thou/mm3 (0.0-0.8); Monocytes % (Auto) 6 % (0-12); Neutrophils # (Auto) 6.1 Thou/mm3 (1.8-7.7); Neutrophils % (Auto) 78 % (37-80); Nucleated Red Blood Cell % 0 /100 WBC (0); Platelet Count 150 Thou/mm3 (140-440); RDW Standard Deviation 50.6 fL (35.1-43.9); Red Blood Count 3.77 Miln/mm3 (4.50-5.90); White Blood Count 7.9 Thou/mm3 (3.8-10.6)
[2024-07-10 12:12] VITALS: BP 109/51; PULSE 62; RESP 12; TEMP 36.6; O2SAT 95
[2024-07-10 12:17] LABS: INR 1.1 (0.9-1.3); Partial Thromboplastin Time 27.6 Seconds (22.0-36.0); Prothrombin Time 12.4 Seconds (9.0-12.2)
[2024-07-10 12:18] LABS: B-Type Natriuretic Peptide 100 pg/mL (0-100)
[2024-07-10 12:55] LABS: Alanine Aminotransferase 35 U/L (10-49); Albumin, Serum 3.9 gm/dL (3.4-4.8); Anion Gap 6 (7-16); Aspartate Amino Transferase 23 U/L (0-34); BUN/Creatinine Ratio 21 Ratio (12-20); Blood Urea Nitrogen 25 mg/dL (9-23); Calcium 9.1 mg/dL (8.3-10.6); Calcium (Corrected) 9.2 mg/dL (8.5-10.1); Carbon Dioxide 29.8 mMol/L (20.0-31.0); Chloride 106 mMol/L (98-107); Creatinine (Component) 1.2 mg/dL (0.6-1.3); Estimated Creatinine Clearance 45.9 mL/min (>60); Globulin 2.1 gm/dL (2.3-3.5); Glucose 148 mg/dL (74-106); LDH (Lactate Dehydrogenase) 188 U/L (120-246); Osmolality,Calculated 290 (275-295); Potassium 3.6 mMol/L (3.4-5.1); Sodium 142 mMol/L (136-145); eGFR > 60 See Note
[2024-07-10 12:56] LABS: Albumin/Globulin Ratio 1.9 (1.2-2.2); Alkaline Phosphatase 84 U/L (46-116)
[2024-07-10 13:08] LABS: Troponin I 0.022 ng/mL (0.0-0.045)
[2024-07-10 13:42] VITALS: BP 110/67; PULSE 61; RESP 19; TEMP 36.4; O2SAT 95
[2024-07-10] MEDS: SODIUM CHLORIDE 0.9% 1000 ML 1,000 ML 999 ML IV (14:08)
[2024-07-10 15:03] VITALS: BP 124/59; PULSE 58; RESP 20; TEMP 36.5; O2SAT 95
== END 2024-07-10 15:45 | disposition home or self-care (01) ==
PROVIDERS: Registered Nurse General Practice; Emergency Provider Emergency Medicine; PCP Internal Medicine
DX: R55 Syncope and collapse (principal); E86.0 Dehydration
CPT/HCPCS: 36415; 70450; 80053; 80307; 81001; 83615; 83735; 83880; 84484; 85025; 85610; 85730; 93005; 99284; J7030

== ENCOUNTER 2024-09-22 11:00 | Inpatient (IN) | payer MEDICARE, SELFPAY ==
[2024-09-22] VITALS (7 sets, daily range): BP systolic 108–166; BP diastolic 57–100; PULSE 45–69; RESP 14–20; TEMP 36.3–36.9; O2SAT 95–99; BMI 36.9; BMI 29.3
--- NOTE | 2024-09-22 | XR_ITS ---
Examination: MRI brain without intravenous contrast. Date and time of exam: September 22, 2024 1902 hours INDICATIONS: Seizure activity today with vomiting followed by confusion Technique: Multiple axial and sagittal images of the brain obtained. Siemens high-resolution 1.5 Melba short bore scanners utilized. Sagittal sections, T1-weighted, TR 500, TE 14, are performed. Axial sections proton-density and T2-weighted have been obtained. Inversion recovery axial images, TR 9, 260, TE 111, TI 2500. Diffusion weighted images, axial sections, TR 4800, TE 128, B value 1000 Axial sections, ADC map, TR 4800, TE 128 Findings: Enlargement of the sella turcica is not present. The optic chiasm and infundibular are not remarkable. Prepontine and interpeduncular cisterns are not enlarged. There is no localized enlargement of the medulla or petr. Fourth ventricle and cerebellar tonsils appear normal in position. No subacute area of hemorrhage density is seen. Mass in the cerebellopontine angle region is not evident. Globes symmetrical. Orbital musculature including medial lateral rectus muscles do not exhibit abnormality. Diffusion-weighted images demonstrate no focus of restricted diffusion. Increased white matter signal prominent, including old infarcts both cerebellar hemispheres, both occipital lobes left basal ganglia including left caudate nucleus left frontal lobe Mass effect upon the ventricular system is not identified. Impression: Negative for acute hemorrhage mass effect or midline shift No acute infarct Multiple old infarcts as above Chronic multi-infarct dementia pattern
--- NOTE | 2024-09-22 11:34 | EKG_ITS ---
[facility] Test Date: 2024-09-22 Pat Name: CLARICE PEDERSEN Department: Room: - Gender: Male Note Taker: : 1940 Requested By: Adria Henson Order Number: [id number] Reading MD: Adria Henson Measurements Intervals [place] Rate: 61 P: 16 TN: 316 QRS: -24 QRSD: 149 T: 146 QT: 493 QTc: 498 Interpretive Statements SINUS RHYTHM WITH FIRST DEGREE AV BLOCK LEFT BUNDLE BRANCH BLOCK [120+ ms QRS DURATION, 80+ ms Q/S IN V1/V2, 85+ ms R IN I/aVL/V5/V6] Compared to ECG 07/10/2024 12:04:27 Left-axis deviation no longer present /store/S0/[id number].pdf
--- NOTE | 2024-09-22 11:34 | XR_ITS ---
Examination: AP chest single view Technique one AP portable upright chest single view Exam date and time: September 22, 2024 at 11:33 AM Indications: Shortness of breath today. Findings: Mild prominence left ventricle. No aspiration pneumonia. Significant osteopenia Impression: Negative for aspiration pneumonia
--- NOTE | 2024-09-22 11:34 | EKG_ITS ---
[facility] Test Date: 2024-09-22 Pat Name: CLARICE PEDERSEN Department: Room: - Gender: Male Manager Residential: : 1940 Requested By: Adria Henson Order Number: [id number] Reading MD: Adria Henson Measurements Intervals [place] Rate: 44 P: [place]: QRS: -12 QRSD: 144 T: 151 QT: 535 QTc: 459 Interpretive Statements SINUS BRADYCARDIA WITH 2ND DEGREE AV BLOCK, MOBITZ TYPE I (W[place]KEBACH) LEFT BUNDLE BRANCH BLOCK [120+ ms QRS DURATION, 80+ ms Q/S IN V1/V2, 85+ ms R IN I/aVL/V5/V6] CRITICAL TEST RESULT Compared to ECG 09/22/2024 11:39:11 Sinus rhythm no longer present First degree AV block no longer present /store/S0/[id number].pdf
--- NOTE | 2024-09-22 11:36 | XR_ITS ---
Examination: CT brain head without contrast. 2-D sagittal coronal reconstructions Date and time of exam:September 22, 2024 1220 hrs. Indications: Seizure activity today CTDI: vol (mGy):55.5 DLP: (mGycm):1096 Technique: Multiple CT axial sections of the brain have been obtained, 5 mm slice thickness. Contrast has not been administered. 2-D sagittal, coronal reconstructions have been obtained Low dose protocols were performed. One or more of the following dose reduction techniques were used; automated exposure control, adjustment of the mA and/or KV according to patient size, use of iterative reconstruction technique. Findings: No significant ventricular enlargement. Intra-axial or extra-axial hemorrhage density is not seen. No mass effect or midline shift Basal cisterns are not remarkable. Fourth ventricle is midline. Cranial vault intact. Old infarcts in the occipital lobes Impression: Negative for acute hemorrhage, mass effect or midline shift Old appearing infarcts in the occipital lobes Consider elective brain MRI follow-up pre and postcontrast, seizure protocol
--- NOTE | 2024-09-22 11:36 | PD.EDSEIZ ---
ED Seizures RME/HPI General Chief Complaint: Seizure Stated Complaint: SEIZURE Time Seen by Provider: 09/22/24 11:33 Arrival date/time: 09/22/24 11:00 RME / HPI RME / HPI Narrative: 84-year-old male patient with significant history of DVT, CVA, hypercholesterolemia, hypertension, came in for evaluation via EMS regarding seizure-like activity. Patient was sitting on his wheelchair, and was noted to be shaking, according to the EMS lasting for at least 4 minutes. Associated with 1 episode of vomiting. Nonbloody. When the EMS arrived patient was noted to be slightly confused while in the back of the car patient regained total consciousness, now is alert and oriented x 4. Patient told me that he remember what happened prior to the incident she feels hot. Patient denies any headache. Denies any upper or lower extremity weakness. Denies any slurred speech denies any dizziness denies any chest pain abdominal pain or other complaints. Patient is not taking any medication for seizure. Related Data Home Medications ?Medication ?Instructions ?Recorded ?Confirmed carvedilol 3.125 mg tablet 3.125 mg PO BID 05/22/24 09/22/24 donepezil 10 mg tablet 10 mg PO HS 05/22/24 09/22/24 losartan 100 1 tab PO DAILY 05/22/24 09/22/24 mg-hydrochlorothiazide 12.5 mg tablet memantine 5 mg tablet 5 mg PO BID 05/22/24 09/22/24 pantoprazole 40 mg tablet,delayed 40 mg PO DAILY 05/22/24 09/22/24 release sertraline 100 mg tablet 100 mg PO DAILY 05/22/24 09/22/24 Previous Rx's ?Medication ?Instructions ?Recorded apixaban 5 mg (74 tabs) tablets in 5 mg PO BID #74 tabs 05/25/24 a dose pack ([employer] DVT-PE Treat 30D Start) aspirin 81 mg tablet,delayed 81 mg PO QDAY #30 tabs 05/25/24 release (Adult Low Dose Aspirin) atorvastatin 80 mg tablet 80 mg PO QPM #30 tabs 05/25/24 Allergies Allergy/AdvReac Type Severity Reaction Status Date / Time No Known Allergies Allergy Verified 06/05/24 16:18 Review of Systems Review of Systems Narrative Review of Systems: Review of system reviewed and within normal limits except mentioned in HPI ED Exam Narrative Physical exam: VITAL SIGNS: Reviewed. GENERAL APPEARANCE: Alert and interactive, follows commands, no acute distress, HEAD AND FACE: Non-traumatic. ENT: PERRL, pink conjunctivitis, eyelid no trauma, Mucous membrane moist. NECK: Supple, nontender, no nuchal rigidity. CHEST: No tenderness, no crepitus, no paradoxical movement, no retractions. LUNGS: Clear, well ventilated, symmetric, no rales, no wheezing, no ronchi, no stridor, good breath sounds bilaterally. HEART: Regular rate, regular rhythm, no murmur, no gallops. ABDOMEN: Soft, positive bowel sounds, nondistended, no guarding, nontender, no rebound, no masses, RECTAL: Deferred. GENITAL: Deferred. NEUROLOGICAL: Gross motor function intact sensory function intact, Appropriate for age. MUSCULOSKELETAL: low back nontender, full range of motion. EXTREMITIES: Nontender, full range of motion. SKIN: Color pink, dry, no rash, no lacerations, no abrasions, no contusions. LYMPHATICS: Deferred. Course Quality Measures none Orders Category Date Time Status Admit to Inpatient Status Routine Admission 09/22/24 15:50 Active Patient Condition Routine Admission 09/22/24 15:50 Ordered Aspiration precautions NOW Care 09/22/24 15:52 Active COVID-19 Screening Questionnaire NOW Care 09/22/24 14:56 Active Decision to Admit X1 Care 09/22/24 14:56 Completed EKG (ED ONLY) *Do not use* NOW Care 09/22/24 11:34 Completed EKG (ED ONLY) *Do not use* NOW Care 09/22/24 11:34 Completed EKG (ED ONLY) *Do not use* NOW Care 09/22/24 12:46 Completed MRI Screening NOW Care 09/22/24 15:56 Completed MRI Screening NOW Care 09/22/24 16:00 Active Miscellaneous Nursing Order NOW Care 09/22/24 15:50 Active NPO NOW Care 09/22/24 15:52 Active Neuro Check Q4H Care 09/22/24 15:50 Active Notify provider NEEDED Care 09/22/24 15:50 Active Nurse Swallow Screen X1 Care 09/22/24 15:55 Active Seizure precautions NEEDED Care 09/22/24 15:52 Active Strict Intake and Output Routine Care 09/22/24 15:56 Ordered Consult to Neurology / Tele-Neurology Stat Cons 09/22/24 14:48 Active Diet NPO (NOW) Diet 09/22/24 15:[address] head/brain wo con Stat Exams 09/22/24 11:36 Completed EKG (ED Only) Stat Exams 09/22/24 11:34 Draft EKG (ED Only) Stat Exams 09/22/24 11:34 Draft EKG (ED Only) Stat Exams 09/22/24 12:46 Ordered EKG (ED Only) Stat Exams 09/22/24 12:46 Stop Req MR head/brain wo con Urgent Exams 09/22/24 Completed XR chest 1V Stat Exams 09/22/24 11:34 Completed B-Type Natriuretic Peptide Stat Lab 09/22/24 12:31 Completed Blood Culture (Lab) Stat Lab 09/22/24 12:36 Received CBC AM DRAW Lab 09/23/24 05:00 Ordered CBC AM DRAW Lab 09/24/24 05:00 Ordered CBC AM DRAW Lab 09/25/24 05:00 Ordered CBC Stat Lab 09/22/24 12:31 Completed Comprehensive Metabolic Panel AM DRAW Lab 09/23/24 05:00 Ordered Comprehensive Metabolic Panel AM DRAW Lab 09/24/24 05:00 Ordered Comprehensive Metabolic Panel AM DRAW Lab 09/25/24 05:00 Ordered Comprehensive Metabolic Panel Stat Lab 09/22/24 12:31 Completed Lactate (Lactic Acid) Stat Lab 09/22/24 12:31 Completed Lipid Panel AM DRAW Lab 09/23/24 05:00 Ordered Magnesium AM DRAW Lab 09/23/24 05:00 Ordered Magnesium AM DRAW Lab 09/24/24 05:00 Ordered Magnesium AM DRAW Lab 09/25/24 05:00 Ordered Partial Thromboplastin Time AM DRAW Lab 09/23/24 05:00 Ordered Partial Thromboplastin Time Stat Lab 09/22/24 12:31 Completed Phosphorous AM DRAW Lab 09/23/24 05:00 Ordered Phosphorous AM DRAW Lab 09/24/24 05:00 Ordered Phosphorous AM DRAW Lab 09/25/24 05:00 Ordered Procalcitonin Stat Lab 09/22/24 12:31 Completed Prothrombin Time with INR AM DRAW Lab 09/23/24 05:00 Ordered UA, C/S IF [Urinalysis, C/S if Indicated] Stat Lab 09/22/24 11:54 Completed Acetaminophen Supp [Tylenol Supp] Med 09/22/24 15:50 Active 650 mg DE Q6HR PRN Apixaban [Eliquis] Med 09/22/24 21:00 Active 5 mg PO BID Aspirin [Ecotrin] Med 09/23/24 09:00 Active 81 mg PO QDAY Atorvastatin Calcium [Lipitor] Med 09/22/24 21:00 Active 80 mg PO HS Ondansetron Inj [Zofran Inj] Med 09/22/24 15:50 Active 4 mg IV Q6H PRN Pantoprazole [Protonix] Med 09/23/24 09:00 Active 40 mg PO QDAY carVEDILOL [Coreg] Med 09/22/24 17:30 Active 3.125 mg PO BIDWM levETIRAcetam INJ [Keppra Inj] Med 09/22/24 14:48 Discontinued 1,000 mg IVP X1 ONE levETIRAcetam INJ [Keppra Inj] Med 09/22/24 21:00 Active 500 mg IVP Q12HR Code Status Routine Oth 09/22/24 15:50 Ordered EEG Awake and Drowsy Stat RT 09/22/24 15:55 Ordered EKG (RT) Urgent RT 09/22/24 15:22 Ordered Vital Signs Vital signs: Vital Signs Temperature 97.7 F 09/22/24 11:08 Pulse Rate 69 09/22/24 11:08 Respiratory Rate 18 09/22/24 11:08 Blood Pressure 108/72 09/22/24 11:08 Pulse Oximetry (%) 98 09/22/24 11:08 Oxygen Delivery Method Nasal Cannula 09/22/24 11:08 Oxygen Flow Rate 6 09/22/24 11:08 Seizure MDM Narrative MDM Narrative:: 84-year-old male patient with significant history of hypertension DVT CVA wheelchair-bound was brought in by EMS for evaluation regarding seizure-like activity lasting for 4 minutes. Associated with 1 episode of nonbloody vomiting. Was noted to be slightly confused while in the back of the car patient regained total consciousness, now is alert and oriented x 4. Patient told me that he remember what happened prior to the incident he feels hot. Patient denies any headache. Denies any upper or lower extremity weakness. Denies any slurred speech denies any dizziness denies any chest pain abdominal pain or other complaints. Patient is not taking any medication for seizure. CT scan of the head came back unremarkable. Laboratory workup also came back unremarkable. Lactic acid is normal urinalysis . EKG showed sinus bradycardia, ventricular rate of 44 bpm, QRS duration 144 MS, no ST segment elevation depression noted, left bundle branch block, which is also present from the previous Spoke with Dr Joyce, neurologist on-call, who advised me to start this patient on Keppra 1 g loading dose and admit the patient for new onset seizure workup. Patient data External records reviewed:: [facility] previous records Clinical information provided by:: patient and EMS Social determinants that could affect healthcare access:: none Patient has the following chronic illnesses:: DVT, hypertension, CVA, How is presenting disease/condition affected by chronic disease/condition?: exacerbated by Evaluation data The following diagnostics were reviewed and interpreted by me:: lab results, radiology exam(s) and EKG tracing(s) Lab and/or radiology exams considered but not ordered:: None Interpretation Summary: See results in [facility] Medications / Prescriptions Medications or Prescriptions considered but not ordered:: None Medication administrations:: Medication Administration History Acetaminophen (Acetaminophen Supp 650 Mg Supp) 650 mg DE Q6HR PRN PRN Reason: Fever > 100.4 or pain Stop: 10/22/24 15:49 Apixaban (Apixaban 2.5 Mg Tablet) 5 mg PO BID [facility]UL[facility] Stop: 10/22/24 20:59 Aspirin (Aspirin Ec 81 Mg Tabec) 81 mg PO QDAY [facility]UL[facility] Stop: 10/23/24 08:59 Atorvastatin Calcium (Atorvastatin Calcium 20 Mg Tablet) 80 mg PO HS [facility]UL[facility] Stop: 10/22/24 20:59 Carvedilol (Carvedilol 3.125 Mg Tablet) 3.125 mg PO BIDWM [facility]ULCE Stop: 10/22/24 17:29 Last Admin: 09/22/24 17:15 Dose: Not Given Documented By: DB Non-Admin Reason: Contraindicated Levetiracetam (Levetiracetam Inj 100 Mg/Ml Vial 5ml) 500 mg IVP Q12HR [facility] Stop: 10/22/24 20:59 Lorazepam (Lorazepam 2 Mg/Ml Vial) 2 mg IVP Q15MIN PRN PRN Reason: ANXIETY Ondansetron HCl (Ondansetron Inj 2 Mg/Ml Inj 2 Ml) 4 mg IV Q6H PRN; Protocol PRN Reason: NAUSEA OR VOMITING Stop: 10/22/24 15:49 Pantoprazole Sodium (Pantoprazole 40 Mg Tablet) 40 mg PO QDAY [facility] Stop: 10/23/24 08:59 Discontinued Medications Levetiracetam (Levetiracetam Inj 100 Mg/Ml Vial 5ml) 1,000 mg IVP X1 ONE Stop: 09/22/24 14:49 Last Admin: 09/22/24 15:43 Dose: 1,000 mg Documented By: SNEHA Membreno IV Consultations Consultation(s) initiated? (list below): Yes Consultation #1 (Physician, Specialty, Details): Dr Joyce, neurologist on-call thank you Diagnosis Seizure Differential Diagnosis: intractable seizure disorder, focal seizure and new onset seizure Most likely diagnosis given after review of the tests above:: New onset seizure, history of stroke Admission Indicated Admission indicated?: indicated Explain why admission is indicated or not indicated:: Patient is to be admitted for further management Admission Request Was there a request for admission?: Yes Admission Attestation Admission request attestation: Discussed case with Hospitalist service regarding admission. Discussed patients ED course, exam findings, labs, and radiology results. The Hospitalist [agrees to accept the patient for admission. Disposition Plan Disposition Plan: Admit Discharge Plan Plan Patient Disposition: Admit Acute Care w/in Hospital Disposition Comment: stable Problem List Clinical Impression: New onset seizure, History of CVA (cerebrovascular accident)
[2024-09-22 12:03] LABS: Collection Type, Urine Clean Catch; Squamous Epithelial Cell,Urine 0 /hpf (0-5)
[2024-09-22 12:15] LABS: Bilirubin,Urine Negative (Negative); Blood,Urine Negative (Negative); Clarity,Urine Clear (Clear/Hazy); Color,Urine Yellow (Lt Yel-Yel); Culture Indicated,Urine Not Indicated; Glucose, Urine Negative (Negative); Ketones,Urine Negative (Negative); Leukocyte Esterase,Urine Negative (Negative); Nitrite,Urine Negative (Negative); Protein,Urine Negative (Neg - Trace); RBC,Urine < 1 /hpf (0-3); Specific Gravity,Urine 1.024 (1.001-1.035); Urobilinogen,Urine Negative mg/dL (0.0-1.0); WBC,Urine 4 /hpf (0-5)
[2024-09-22 12:45] LABS: Lactate (Lactic Acid) 1.1 mMol/L (0.4-2.0)
--- NOTE | 2024-09-22 12:46 | EKG_ITS ---
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
--- NOTE | 2024-09-22 12:46 | EKG_ITS ---
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
[2024-09-22 12:53] LABS: Basophils % (Auto) 1 % (0-2.5); Eosinophils # (Auto) 0.1 Thou/mm3 (0.0-0.5); Eosinophils % (Auto) 1 % (0-10); Hematocrit 38.5 % (41.0-53.0); Immature Granulocytes % (Auto) 0 % (0-0); Immature Granulocytes Auto 0.03 Thou/mm3 (0.00-0.00); Lymphocytes # (Auto) 1.1 Thou/mm3 (1.0-4.8); Lymphocytes % (Auto) 14 % (10-50); Mean Corpuscular HGB Conc 33.8 g/dl (31.0-37.0); Mean Corpuscular Hemoglobin 32.7 pg (25.0-35.0); Mean Corpuscular Volume 97 fL (80-100); Monocytes # (Auto) 0.5 Thou/mm3 (0.0-0.8); Monocytes % (Auto) 7 % (0-12); Neutrophils # (Auto) 5.8 Thou/mm3 (1.8-7.7); Neutrophils % (Auto) 77 % (37-80); Nucleated Red Blood Cell % 0 /100 WBC (0); Platelet Count 122 Thou/mm3 (140-440); RDW Standard Deviation 51.1 fL (35.1-43.9); Red Blood Count 3.97 Miln/mm3 (4.50-5.90); White Blood Count 7.6 Thou/mm3 (3.8-10.6)
[2024-09-22 13:02] LABS: B-Type Natriuretic Peptide 164 pg/mL (0-100)
[2024-09-22 13:05] LABS: Partial Thromboplastin Time 27.2 Seconds (22.0-36.0)
[2024-09-22 13:09] LABS: Alanine Aminotransferase 41 U/L (10-49); Albumin, Serum 3.8 gm/dL (3.4-4.8); Albumin/Globulin Ratio 1.7 (1.2-2.2); Alkaline Phosphatase 88 U/L (46-116); Anion Gap 7 (7-16); Aspartate Amino Transferase 33 U/L (0-34); BUN/Creatinine Ratio 16 Ratio (12-20); Blood Urea Nitrogen 18 mg/dL (9-23); Calcium 9.2 mg/dL (8.3-10.6); Calcium (Corrected) 9.4 mg/dL (8.5-10.1); Carbon Dioxide 30.4 mMol/L (20.0-31.0); Chloride 105 mMol/L (98-107); Creatinine (Component) 1.1 mg/dL (0.6-1.3); Estimated Creatinine Clearance 64.3 mL/min (>60); Globulin 2.3 gm/dL (2.3-3.5); Glucose 126 mg/dL (74-106); Osmolality,Calculated 287 (275-295); Potassium 3.9 mMol/L (3.4-5.1); Sodium 142 mMol/L (136-145); Total Protein 6.1 gm/dL (5.7-8.2); eGFR > 60 See Note
[2024-09-22 13:10] LABS: Procalcitonin 0.06 ng/ml (0.0-0.49)
--- NOTE | 2024-09-22 13:11 | PRELIM_ITS ---
CT scan of the head without intravenous contrast (axial sections with sagittal and coronal reformats) September 22, 2024 at 1208 hours Clinical history: Seizure like activity. Comparison: No prior study is available for comparison. Findings: There is no evidence of intracranial hemorrhage, mass effect or midline shift. There are periventricular white matter hypodensities, compatible with chronic small vessel ischemia. Chronic infarcts are noted in left frontal, right occipital and left cerebellar hemisphere. There are old lacunar infarcts in left basal ganglia and right cerebellum. There is moderate volume loss. The calvarium is unremarkable. The mastoid air cells and the visualized paranasal sinuses are clear. Impression: No evidence of intracranial hemorrhage, mass effect or midline shift. Chronic small vessel ischemia and volume loss. Report Electronically Signed By: Migue Lynch 09/22/2024 1:11:03 PM [EST]
--- NOTE | 2024-09-22 15:22 | EKG_ITS ---
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
[2024-09-22] MEDS: levETIRAcetam INJ 100 MG/ML VIAL 5ML 1000 MG IVP (15:43)
--- NOTE | 2024-09-22 16:53 | PD.RESHP ---
Documentation for date of: 09/22/24 [facility] History of Present Illness Chief complaint: Witnessed seizure History of present illness: 84 y/o M with PMHx significant for hypertension, dementia, CVA, A-fib, HFrEF, DVTs presents from home to the ED on 09/22/2024 with chief complaint of witnessed seizure at home. Patient is disoriented at baseline, history taken from chart review and family. Patient was in his usual state of health this morning, when he developed sudden gagging emotions witnessed by family. This was followed by convulsions with emesis, eyes rolled back into his head, lasting approximately 4 minutes. After convulsions ended, patient was unresponsive for at least 10 minutes. Patient had no loss of consciousness prior to convulsions. On exam patient was alert and appropriately responsive, however had word finding difficulty and poor memory. Patient denied fevers, chills, nausea, headaches, weakness, fatigue, chest pain, shortness of breath. ED COURSE: Lab significant for: WBC 7.6, hemoglobin 13, lactic acid 1.1, Pro-Zafar 0.06. Imaging significant for: Head CT unremarkable, shows old infarcts. EKG shows AV block, with bundle branch, seen on previous EKGs. Dr. Joyce neurologist was consulted in ED, recommended loading dose of Keppra which was given, EEG and MRI. PMH: Hypertension, dementia, stroke, A-fib, HFrEF, DVT PSH: None known. SH: Denies alcohol, tobacco, illicit drug use. Allergies: NKDA Medications: Eliquis, aspirin, statin, Coreg, Daptacel, losartan hydrochlorothiazide, memantine, pantoprazole, quetiapine, sertraline Review of Systems Review of Systems Systems Reviewed: All systems reviewed, normal except as documented Past Medical History Past Medical History Comments PMH COMMENT: PMH: Hypertension, dementia, stroke, A-fib, HFrEF, DVT PSH: None known. SH: Denies alcohol, tobacco, illicit drug use. Allergies: NKDA Medications: Eliquis, aspirin, statin, Coreg, Daptacel, losartan hydrochlorothiazide, memantine, pantoprazole, quetiapine, sertraline Exam Vital Signs Temp Pulse Resp BP Pulse Ox O2 Del Method O2 Flow Rate 97.3 F 60 14 147/85 H 95 Room Air 6 09/22/24 16:02 09/22/24 16:02 09/22/24 16:02 09/22/24 16:02 09/22/24 16:02 09/22/24 16:02 09/22/24 11:08 Narrative Exam PE: Gen: Well-developed and well-nourished. HEENT: NCAT, PERRLA, EOMI, MMM, anicteric conjunctivae. CVS: normal S1 and S2. RRR. No M/R/G. Resp: CTA B/L. No rhonchi, rales, crackles or wheezing. Abd: soft, non-tender, non-distended. BS+ in all 4 quadrants. MSK: Good ROM in BUE & BLE. No edema or rash. Neuro: CN II-XII grossly intact. Strength 5/5 in BUE, strength 3/5 in BLE. Alert and oriented x2, baseline for patient. Unable to fully extend fingers right hand. Psych: appropriate mood and affect. Results: Labs 09/23/24 05:43 09/23/24 05:43 Labs: Short CBC 09/22/24 Range/Units 12:31 WBC 7.6 (3.8-10.6) Thou/mm3 Hgb 13.0 L (13.5-16.0) g/dL Hct 38.5 L (41.0-53.0) % Plt Count 122 L (140-440) Thou/mm3 BMP 09/22/24 12:31 Sodium 142 Potassium 3.9 Chloride 105 Carbon Dioxide 30.4 BUN 18 Creatinine 1.1 Glucose 126 H Calcium 9.2 Liver Function 09/22/24 Range/Units 12:31 Total Bilirubin 1.0 (0.3-1.2) mg/dL AST 33 (0-34) U/L ALT 41 (10-49) U/L Alkaline Phosphatase 88 (46-116) U/L Albumin 3.8 (3.4-4.8) gm/dL Urine 09/22/24 Range/Units 11:54 Urine Color Yellow (Lt Yel-Yel) Urine Clarity Clear (Clear/Hazy) Urine pH 6.0 (5.0-7.0) Ur Specific [place] 1.024 (1.001-1.035) Urine Protein Negative (Neg - Trace) Urine Glucose (UA) Negative (Negative) Quality Measures Quality Measures VTE prophylaxis Advance care planning discussed with:: patient, spouse and child Medications Home Medications and Allergies Home Medications ?Medication ?Instructions ?Recorded ?Confirmed ?Type carvedilol 3.125 mg tablet 3.125 mg PO BID 05/22/24 09/22/24 History donepezil 10 mg tablet 10 mg PO HS 05/22/24 09/22/24 History losartan 100 1 tab PO DAILY 05/22/24 09/22/24 History mg-hydrochlorothiazide 12.5 mg tablet memantine 5 mg tablet 5 mg PO BID 05/22/24 09/22/24 History pantoprazole 40 mg tablet,delayed 40 mg PO DAILY 05/22/24 09/22/24 History release sertraline 100 mg tablet 100 mg PO DAILY 05/22/24 09/22/24 History Allergies Allergy/AdvReac Type Severity Reaction Status Date / Time No Known Allergies Allergy Verified 06/05/24 16:18 Visit Medications Acetaminophen (Acetaminophen Supp 650 Mg Supp) 650 mg MS Q6HR PRN PRN Reason: Fever > 100.4 or pain Stop: 10/22/24 15:49 Apixaban (Apixaban 2.5 Mg Tablet) 5 mg PO BID [facility] Stop: 10/22/24 20:59 Aspirin (Aspirin Ec 81 Mg Tabec) 81 mg PO QDAY [facility] Stop: 10/23/24 08:59 Atorvastatin Calcium (Atorvastatin Calcium 20 Mg Tablet) 80 mg PO HS [facility] Stop: 10/22/24 20:59 Carvedilol (Carvedilol 3.125 Mg Tablet) 3.125 mg PO BIDWM [facility] Stop: 10/22/24 17:29 Levetiracetam (Levetiracetam Inj 100 Mg/Ml Vial 5ml) 500 mg IVP Q12HR [facility] Stop: 10/22/24 20:59 Ondansetron HCl (Ondansetron Inj 2 Mg/Ml Inj 2 Ml) 4 mg IV Q6H PRN; Protocol PRN Reason: NAUSEA OR VOMITING Stop: 10/22/24 15:49 Pantoprazole Sodium (Pantoprazole 40 Mg Tablet) 40 mg PO QDAY [facility] Stop: 10/23/24 08:59 Discontinued Medications Levetiracetam (Levetiracetam Inj 100 Mg/Ml Vial 5ml) 1,000 mg IVP X1 ONE Stop: 09/22/24 14:49 Last Admin: 09/22/24 15:43 Dose: 1,000 mg Assessment & Plan Plan 84 y/o M with PMHx significant for hypertension, dementia, CVA, A-fib, HFrEF, DVTs presents from home to the ED on 09/22/2024 with chief complaint of witnessed seizure at home, admitted for new onset seizures. #New onset seizure #CVA history Patient presented with new onset convulsions with emesis and postictal state. Patient back to baseline by time of exam, A&O x 2, appropriately responsive. Dr Joyce consulted from ED, appreciate recommendations. Head CT unremarkable, old infarcts noted. Loading dose of Keppra 1 g IV given. -Neurology consulted, appreciate recommendations -Telemetry -Neurochecks every 4 hours -EEG ordered, follow-up -MRI head/brain ordered, follow-up -Keppra 500 mg IV twice daily -N.p.o. -Bedside swallow screen ordered, follow-up -Ativan 2 mg IV every 15 minute as needed for breakthrough seizures Max 3 doses #HFrEF, patient history #Hypertension, patient history #A-fib, patient history Patient history as stated. EKG showed AV block, left bundle branch block, seen on previous imaging. Patient heart rate 60, regular rate and rhythm. Follows outpatient with police worker Dr. Enriquez. -Telemetry -Resume home meds: Eliquis 5 mg p.o. twice daily, aspirin 1 mg p.o. daily, Coreg 3.125 mg p.o. twice daily, atorvastatin 80 mg p.o. daily -All meds held pending bedside swallow screen #CVA, patient history #Dementia, patient history Patient has history as stated. -Resume home meds as above -Holding donepezil, memantine, sertraline -Delirium precautions: Maintain good day night sleep cycle, avoid sedatives DVT prophylaxis: Eliquis GI prophylaxis: Not indicated Diet: N.p.o. pending swallow screen Lines: Peripheral IV Code status: DNR/DNI Plan of care discussed with attending Dr. Napoles. Josias Griffin MD PGY?1 Attending Provider Attestation/Addendum I have examined the patient, reviewed labs and imaging findings, discussed the case with the resident(s), and reviewed entered orders. I agree with the plan of care as outlined in this note. Dr. Dony MD
[2024-09-22] MEDS: levETIRAcetam INJ 100 MG/ML VIAL 5ML 500 MG IVP (22:20)
[2024-09-22] MEDS: ENOXAPARIN SOD INJ 120 MG/0.8 ML SYRINGE 110 MG SC (23:06)
--- NOTE | 2024-09-22 23:55 | PD.VCONSULT1 ---
Telemedicine visit statement This visit was conducted with the use of interactive audio and video telecommunications system that permits real time communication between the patient and the provider. Patient's verbal consent for virtual visit was obtained on 09/22/24 at 2355. History of Present Illness History of Present Illness History of present illness: Mr. 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 No bladder or bowel incontinence or tongue laceration reported. He does have word finding difficulties and poor memory from baseline dementia. Family denies any sick contacts fever with chills headache chest pain shortness of breath. Never had seizures in the past. He has been compliant on his medication intake. No history of head injury recently. Workup in the ER: Lab significant for: WBC 7.6, hemoglobin 13, lactic acid 1.1, Pro-Zafar 0.06. Imaging significant for: Head CT unremarkable, shows old infarcts. EKG shows AV block, with bundle branch, seen on previous EKGs. Neurology was consulted in the ER, I recommended loading dose of Keppra, EEG and MRI. Patient got admitted to [facility] for further evaluation and management. He has not had any seizures since admission. Past Medical History Past Medical History Comments PMH COMMENT: PMH: Hypertension, dementia, stroke, A-fib, HFrEF, DVT PSH: None known. SH: Denies alcohol, tobacco, illicit drug use. Allergies: NKDA Medications: Eliquis, aspirin, statin, Coreg, Daptacel, losartan hydrochlorothiazide, memantine, pantoprazole, quetiapine, sertraline TeleMedicine ROS Pertinent Review of Systems Systems Reviewed: All systems reviewed, normal except as documented Meds Home Medications and Allergies Home Medications ?Medication ?Instructions ?Recorded ?Confirmed ?Type carvedilol 3.125 mg tablet 3.125 mg PO BID 05/22/24 09/22/24 History donepezil 10 mg tablet 10 mg PO HS 05/22/24 09/22/24 History losartan 100 1 tab PO DAILY 05/22/24 09/22/24 History mg-hydrochlorothiazide 12.5 mg tablet memantine 5 mg tablet 5 mg PO BID 05/22/24 09/22/24 History pantoprazole 40 mg tablet,delayed 40 mg PO DAILY 05/22/24 09/22/24 History release sertraline 100 mg tablet 100 mg PO DAILY 05/22/24 09/22/24 History Allergies Allergy/AdvReac Type Severity Reaction Status Date / Time No Known Allergies Allergy Verified 06/05/24 16:18 Virtual exam Vital Signs Temp Pulse Resp BP Pulse Ox O2 Del Method O2 Flow Rate 98.4 F 62 19 166/94 H 98 Room Air 6 09/22/24 21:13 09/22/24 21:13 09/22/24 21:13 09/22/24 21:13 09/22/24 21:13 09/22/24 21:13 09/22/24 11:08 Results Labs 09/22/24 12:31 09/22/24 12:31 Labs: Short CBC 09/22/24 Range/Units 12:31 WBC 7.6 (3.8-10.6) Thou/mm3 Hgb 13.0 L (13.5-16.0) g/dL Hct 38.5 L (41.0-53.0) % Plt Count 122 L (140-440) Thou/mm3 BMP 09/22/24 12:31 Sodium 142 Potassium 3.9 Chloride 105 Carbon Dioxide 30.4 BUN 18 Creatinine 1.1 Glucose 126 H Calcium 9.2 Liver Function 09/22/24 Range/Units 12:31 Total Bilirubin 1.0 (0.3-1.2) mg/dL AST 33 (0-34) U/L ALT 41 (10-49) U/L Alkaline Phosphatase 88 (46-116) U/L Albumin 3.8 (3.4-4.8) gm/dL Urine 09/22/24 Range/Units 11:54 Urine Color Yellow (Lt Yel-Yel) Urine Clarity Clear (Clear/Hazy) Urine pH 6.0 (5.0-7.0) Ur Specific [place] 1.024 (1.001-1.035) Urine Protein Negative (Neg - Trace) Urine Glucose (UA) Negative (Negative) Assessment & Plan Problem List (1) New onset seizure: Status: Acute Assessment and plan: Secondary to 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 follow-up with EEG and MRI brain. Continue with Keppra 500 mg twice a day and follow seizure precautions and Ativan 2 mg IV for breakthrough seizures (2) History of CVA (cerebrovascular accident): Status: Chronic Assessment and plan: With residual focal deficit continue with Eliquis, carvedilol losartan hydrochlorothiazide and atorvastatin (3) Dementia: Status: Chronic Assessment and plan: Continue with the sertraline and the memantine
[2024-09-23] VITALS (12 sets, daily range): BP systolic 116–153; BP diastolic 69–93; PULSE 55–97; RESP 16–30; TEMP 36.1–36.9; O2SAT 94–97; BMI 28.5
--- NOTE | 2024-09-23 03:39 | PC.RT ---
EEG has been completed and is ready for MD interpretation.
[2024-09-23 06:15] LABS: Basophils % (Auto) 1 % (0-2.5); Eosinophils # (Auto) 0.1 Thou/mm3 (0.0-0.5); Eosinophils % (Auto) 2 % (0-10); Hematocrit 36.4 % (41.0-53.0); Hemoglobin 12.4 g/dL (13.5-16.0); Immature Granulocytes % (Auto) 0 % (0-0); Immature Granulocytes Auto 0.02 Thou/mm3 (0.00-0.00); Lymphocytes # (Auto) 1.3 Thou/mm3 (1.0-4.8); Lymphocytes % (Auto) 22 % (10-50); Mean Corpuscular HGB Conc 34.1 g/dl (31.0-37.0); Mean Corpuscular Hemoglobin 32.5 pg (25.0-35.0); Mean Corpuscular Volume 95 fL (80-100); Monocytes # (Auto) 0.5 Thou/mm3 (0.0-0.8); Monocytes % (Auto) 8 % (0-12); Neutrophils # (Auto) 4.1 Thou/mm3 (1.8-7.7); Neutrophils % (Auto) 67 % (37-80); Nucleated Red Blood Cell % 0 /100 WBC (0); Platelet Count 117 Thou/mm3 (140-440); RDW Standard Deviation 49.8 fL (35.1-43.9); Red Blood Count 3.82 Miln/mm3 (4.50-5.90); White Blood Count 6.1 Thou/mm3 (3.8-10.6)
[2024-09-23 06:28] LABS: INR 1.1 (0.9-1.3); Partial Thromboplastin Time 35.4 Seconds (22.0-36.0); Prothrombin Time 12.4 Seconds (9.0-12.2)
[2024-09-23 06:38] LABS: Alanine Aminotransferase 38 U/L (10-49); Albumin, Serum 3.7 gm/dL (3.4-4.8); Albumin/Globulin Ratio 1.8 (1.2-2.2); Alkaline Phosphatase 84 U/L (46-116); Anion Gap 7 (7-16); Aspartate Amino Transferase 29 U/L (0-34); BUN/Creatinine Ratio 19 Ratio (12-20); Blood Urea Nitrogen 17 mg/dL (9-23); Calcium 9.2 mg/dL (8.3-10.6); Calcium (Corrected) 9.4 mg/dL (8.5-10.1); Carbon Dioxide 29.8 mMol/L (20.0-31.0); Cardiac Risk Estimate 2.8 RATIO (4.0-6.7); Chloride 107 mMol/L (98-107); Cholesterol 70 mg/dL (132-200); Creatinine (Component) 0.9 mg/dL (0.6-1.3); Estimated Creatinine Clearance 68.1 mL/min (>60); Globulin 2.1 gm/dL (2.3-3.5); Glucose 92 mg/dL (74-106); HDL Cholesterol 25 mg/dL (40-60); LDL Cholesterol,Calculated 33 mg/dL (0-130); Magnesium 1.9 mg/dL (1.6-2.6); Osmolality,Calculated 288 (275-295); Phosphorous 4.3 mg/dL (2.4-5.1); Potassium 4.2 mMol/L (3.4-5.1); Sodium 144 mMol/L (136-145); Total Protein 5.8 gm/dL (5.7-8.2); Triglycerides 62 mg/dL (30-150); eGFR > 60 See Note
[2024-09-23] MEDS: ASPIRIN EC 81 MG TABEC PO (08:39)
[2024-09-23] MEDS: APIXABAN 2.5 MG TABLET 5 MG PO ×2 (08:39→20:09)
[2024-09-23] MEDS: PANTOPRAZOLE 40 MG TABLET PO (08:39)
[2024-09-23] MEDS: carVEDILOL 3.125 MG TABLET PO ×2 (08:39→17:18)
[2024-09-23] MEDS: MEMANTINE HCL 5 MG TABLET PO ×2 (08:40→20:08)
[2024-09-23] MEDS: SERTRALINE HCL 25 MG TABLET 100 MG PO (08:40)
[2024-09-23] MEDS: levETIRAcetam INJ 100 MG/ML VIAL 5ML 500 MG IVP ×2 (08:40→20:18)
--- NOTE | 2024-09-23 12:18 | PD.RESPRO ---
Documentation for date of: 09/23/24 Subjective Subjective Interval history: Overnight: Patient failed swallow eval, speech therapy was ordered which placed him on a dysphagia diet. Patient seen and examined at bedside. Patient lethargic, otherwise patient baseline mental status. Denies headaches, nausea, vomiting, fever, chills. MRI negative for acute pathology. EEG read pending. Continue Keppra. Exam Vital Signs Temp Pulse Resp BP Pulse Ox O2 Del Method O2 Flow Rate 98.5 F 77 18 153/93 H 96 Room Air 6 09/23/24 11:09/23/24 11:09/23/24 11:09/23/24 11:09/23/24 11:09/23/24 11:09/22/24 11:08 Narrative Exam PE: Gen: Well-developed and well-nourished. Lethargic. HEENT: NCAT, PERRLA, EOMI, MMM, anicteric conjunctivae. CVS: normal S1 and S2. RRR. No M/R/G. Resp: CTA B/L. No rhonchi, rales, crackles or wheezing. Abd: soft, non-tender, non-distended. BS+ in all 4 quadrants. MSK: Good ROM in BUE & BLE. No edema or rash. Neuro: CN II-XII grossly intact. Strength 5/5 in BUE, strength 3/5 in BLE. Alert and oriented x2, baseline for patient. Unable to fully extend fingers right hand. Psych: appropriate mood and affect. Objective Labs 09/23/24 05:43 09/23/24 05:43 Labs: Laboratory Results - last 24 hr 09/22/24 09/22/24 09/23/24 11:54 12:31 05:43 WBC 7.6 6.1 RBC 3.97 L 3.82 L Hgb 13.0 L 12.4 L Hct 38.5 L 36.4 L MCV 97 95 MCH 32.7 32.5 MCHC 33.8 34.1 RDW Std Deviation 51.1 H 49.8 H Plt Count 122 L 117 L Neut % (Auto) 77 67 Lymph % (Auto) 14 22 [place] % (Auto) 7 8 Eos % (Auto) 1 2 Baso % (Auto) 1 1 Neut # (Auto) 5.8 4.1 Lymph # (Auto) 1.1 1.3 [place] # (Auto) 0.5 0.5 Eos # (Auto) 0.1 0.1 Baso # (Auto) 0.0 0.0 Immature Gran # (Auto) 0.03 H 0.02 H Absolute Nucleated RBC 0.00 0.00 Immature Gran % 0 0 Nucleated RBC % 0 0 PT 12.4 H INR 1.1 APTT 27.2 35.4 Sodium 142 144 Potassium 3.9 4.2 Chloride 105 107 Carbon Dioxide 30.4 29.8 Anion Gap 7 7 BUN 18 17 Creatinine 1.1 0.9 Estim Creat Clear Calc 64.3 68.1 eGFR > 60 > 60 BUN/Creatinine Ratio 16 19 Glucose 126 H 92 Calculated Osmolality 287 288 Lactic Acid 1.1 Calcium 9.2 9.2 Corrected Calcium 9.4 9.4 Phosphorus 4.3 Magnesium 1.9 Total Bilirubin 1.0 1.0 AST 33 29 ALT 41 38 Alkaline Phosphatase 88 84 B-Natriuretic Peptide 164 H Total Protein 6.1 5.8 Albumin 3.8 3.7 Globulin 2.3 2.1 L Albumin/Globulin Ratio 1.7 1.8 Triglycerides 62 Cholesterol 70 L LDL Cholesterol, Calc 33 HDL Cholesterol 25 L Cholesterol/HDL Ratio 2.8 L Procalcitonin 0.06 Ur Collection Type Clean Catch Urine Color Yellow Urine Clarity Clear Urine pH 6.0 Ur Specific [place] 1.024 Urine Protein Negative Urine Glucose (UA) Negative Urine Ketones Negative Urine Blood Negative Urine Nitrite Negative Urine Bilirubin Negative Urine Urobilinogen (Auto) Negative Ur Leukocyte Esterase Negative Urine RBC < 1 Urine WBC 4 Ur Squamous Epith Cells 0 Urine Bacteria None Ur Culture Indicated? Not Indicated Quality Measures Quality Measures VTE prophylaxis Advance care planning discussed with:: patient and spouse Assessment & Plan Assessment Current Active Medications: Generic Name Dose Route Start Last Admin Trade Name Freq PRN Reason Stop Dose Admin Acetaminophen 650 mg 09/22/24 15:50 Acetaminophen Supp 650 Mg Supp [place] 10/22/24 15:49 Q6HR PRN Fever > 100.4 or pain Apixaban 5 mg 09/22/24 21:00 09/23/24 08:39 Apixaban 2.5 Mg Tablet PO 10/22/24 20:59 5 mg BID DULCE Administration Aspirin 81 mg 09/23/24 09:00 09/23/24 08:39 Aspirin Ec 81 Mg Tabec PO 10/23/24 08:59 81 mg QDAY DULCE Administration Atorvastatin Calcium 80 mg 09/22/24 21:00 09/22/24 21:23 Atorvastatin Calcium 20 Mg Tablet PO 10/22/24 20:59 Not Given HS DULCE Carvedilol 3.125 mg 09/22/24 17:30 09/23/24 08:39 Carvedilol 3.125 Mg Tablet PO 10/22/24 17:29 3.125 mg BIDWM DULCE Administration Levetiracetam 500 mg 09/22/24 21:00 09/23/24 08:40 Levetiracetam Inj 100 Mg/Ml Vial 5ml IVP 10/22/24 20:59 500 mg Q12HR DULCE Administration Lorazepam 2 mg 09/22/24 17:16 Lorazepam 2 Mg/Ml Vial IVP Q15MIN PRN ANXIETY Memantine 5 mg 09/23/24 09:00 09/23/24 08:40 Memantine Hcl 5 Mg Tablet PO 10/23/24 08:59 5 mg BID DULCE Administration Ondansetron HCl 4 mg 09/22/24 15:50 Ondansetron Inj 2 Mg/Ml Inj 2 Ml IV 10/22/24 15:49 Q6H PRN NAUSEA OR VOMITING Protocol Pantoprazole Sodium 40 mg 09/23/24 09:00 09/23/24 08:39 Pantoprazole 40 Mg Tablet PO 10/23/24 08:59 40 mg QDAY DULCE Administration Sertraline HCl 100 mg 09/23/24 09:00 09/23/24 08:40 Sertraline Hcl 25 Mg Tablet PO 10/23/24 08:59 100 mg DAILY DULCE Administration Plan 84 y/o M with PMHx significant for hypertension, dementia, CVA, A-fib, HFrEF, DVTs presents from home to the ED on 09/22/2024 with chief complaint of witnessed seizure at home, admitted for new onset seizures. #New onset seizure Patient presented with new onset convulsions with emesis and postictal state. Patient back to baseline by time of exam, A&O x 2, appropriately responsive. Dr Joyce consulted from ED, appreciate recommendations. Head CT unremarkable, old infarcts noted. Loading dose of Keppra 1 g IV given. MRI head/brain showed no acute pathology. Patient failed bedside swallow screen, speech therapy saw patient and placed on dysphagia diet. -Neurology consulted, appreciate recommendations. -Telemetry -Neurochecks every 4 hours -EEG read pending, follow-up -MRI head/brain ordered, follow-up -Keppra 500 mg IV twice daily -Ativan 2 mg IV every 15 minute as needed for breakthrough seizures Max 3 doses #HFrEF, patient history #Hypertension, patient history #A-fib, patient history Patient history as stated. EKG showed AV block, left bundle branch block, seen on previous imaging. Patient heart rate 60, regular rate and rhythm. 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 Enriquez. -Telemetry -Resume home meds: Eliquis 5 mg p.o. twice daily, aspirin 1 mg p.o. daily, Coreg 3.125 mg p.o. twice daily, atorvastatin 80 mg p.o. daily #CVA, patient history #Dementia, patient history Patient has history as stated. -Resume home meds as above -Holding donepezil, memantine, sertraline -Delirium precautions: Maintain good day night sleep cycle, avoid sedatives DVT prophylaxis: Eliquis GI prophylaxis: Not indicated Diet: Dysphagia level 3 Lines: Peripheral IV Code status: DNR/DNI Plan of care discussed with attending Dr. Napoles. Josias Griffin MD PGY?1 Attending Provider Attestation/Addendum I have examined the patient, reviewed labs and imaging findings, discussed the case with the resident(s), and reviewed entered orders. I agree with the plan of care as outlined in this note, with these additional summaries/recommendations: Patient seen sleeping at bedside & present. Per he has been sleeping most of the morning. Discussed with that keppra can cause sleepiness/drowsiness and we will monitor how he tolerates. MRI brain negative for acute CVA. Most likely patients new onset seizures is related to his previous CVA. In house neurology following. Pending EEG. Continue home eliquis, aspirin, coreg, and atorvastatin. Per patient is relatively bed bound. Continue seizure precautions. Repeat hematology and chemistry panel in am. Dr. Dony MD
[2024-09-23] MEDS: TRIMETHOPRIM/SULFA 160/800 DS TABLET 1 TAB PO (20:08)
[2024-09-23] MEDS: ATORVASTATIN CALCIUM 20 MG TABLET 80 MG PO (20:08)
--- NOTE | 2024-09-23 23:23 | VVPN_ITS ---
Telemedicine visit statement This visit was conducted with the use of interactive audio and video telecommunications system that permits real time communication between the patient and the provider. Patient's verbal consent for virtual visit was obtained on 09/23/24 at 2323. Documentation for date of: 09/23/24 Subjective Subjective Interval history: Patient is in MedSurg, no seizures reported since admission. No side effects on Keppra. Virtual exam Vital Signs Temp Pulse Resp BP Pulse Ox O2 Del Method O2 Flow Rate 97.0 F 65 18 116/69 95 Nasal Cannula 6 09/23/24 20:00 09/23/24 20:00 09/23/24 20:00 09/23/24 20:00 09/23/24 20:00 09/23/24 20:00 09/22/24 11:08 Objective Labs 09/23/24 05:43 09/23/24 05:43 Labs: Laboratory Results - last 24 hr 09/23/24 05:43 WBC 6.1 RBC 3.82 L Hgb 12.4 L Hct 36.4 L MCV 95 MCH 32.5 MCHC 34.1 RDW Std Deviation 49.8 H Plt Count 117 L Neut % (Auto) 67 Lymph % (Auto) 22 [place] % (Auto) 8 Eos % (Auto) 2 Baso % (Auto) 1 Neut # (Auto) 4.1 Lymph # (Auto) 1.3 [place] # (Auto) 0.5 Eos # (Auto) 0.1 Baso # (Auto) 0.0 Immature Gran # (Auto) 0.02 H Absolute Nucleated RBC 0.00 Immature Gran % 0 Nucleated RBC % 0 PT 12.4 H INR 1.1 APTT 35.4 Sodium 144 Potassium 4.2 Chloride 107 Carbon Dioxide 29.8 Anion Gap 7 BUN 17 Creatinine 0.9 Estim Creat Clear Calc 68.1 eGFR > 60 BUN/Creatinine Ratio 19 Glucose 92 Calculated Osmolality 288 Calcium 9.2 Corrected Calcium 9.4 Phosphorus 4.3 Magnesium 1.9 Total Bilirubin 1.0 AST 29 ALT 38 Alkaline Phosphatase 84 Total Protein 5.8 Albumin 3.7 Globulin 2.1 L Albumin/Globulin Ratio 1.8 Triglycerides 62 Cholesterol 70 L LDL Cholesterol, Calc 33 HDL Cholesterol 25 L Cholesterol/HDL Ratio 2.8 L Assessment & Plan Problem List (1) New onset seizure: Status: Acute Assessment and plan: Secondary to 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 follow-up with EEG MRI brain showed chronic multi-infarct dementia pattern and multiple old infarcts, no acute infarction noted. Continue with Keppra 500 mg twice a day and follow seizure precautions and Ativan 2 mg IV for breakthrough seizures (2) History of CVA (cerebrovascular accident): Status: Chronic Assessment and plan: With residual focal deficit continue with Eliquis, carvedilol losartan hydrochlorothiazide and atorvastatin (3) Dementia: Status: Chronic Assessment and plan: Continue with the sertraline and the memantine
[2024-09-24] VITALS (9 sets, daily range): BP systolic 120–162; BP diastolic 64–78; PULSE 60–77; RESP 16–24; TEMP 36.2–36.4; O2SAT 92–98; BMI 28.5
[2024-09-24 06:21] LABS: Basophils % (Auto) 1 % (0-2.5); Eosinophils # (Auto) 0.2 Thou/mm3 (0.0-0.5); Eosinophils % (Auto) 3 % (0-10); Hematocrit 34.7 % (41.0-53.0); Hemoglobin 11.9 g/dL (13.5-16.0); Immature Granulocytes % (Auto) 0 % (0-0); Immature Granulocytes Auto 0.01 Thou/mm3 (0.00-0.00); Lymphocytes # (Auto) 1.4 Thou/mm3 (1.0-4.8); Lymphocytes % (Auto) 24 % (10-50); Mean Corpuscular HGB Conc 34.3 g/dl (31.0-37.0); Mean Corpuscular Hemoglobin 32.6 pg (25.0-35.0); Mean Corpuscular Volume 95 fL (80-100); Monocytes # (Auto) 0.4 Thou/mm3 (0.0-0.8); Monocytes % (Auto) 7 % (0-12); Neutrophils # (Auto) 3.8 Thou/mm3 (1.8-7.7); Neutrophils % (Auto) 65 % (37-80); Nucleated Red Blood Cell % 0 /100 WBC (0); Platelet Count 119 Thou/mm3 (140-440); RDW Standard Deviation 49.5 fL (35.1-43.9); Red Blood Count 3.65 Miln/mm3 (4.50-5.90); White Blood Count 5.8 Thou/mm3 (3.8-10.6)
[2024-09-24 06:29] LABS: Alanine Aminotransferase 26 U/L (10-49); Albumin, Serum 3.4 gm/dL (3.4-4.8); Albumin/Globulin Ratio 1.6 (1.2-2.2); Alkaline Phosphatase 83 U/L (46-116); Anion Gap 7 (7-16); Aspartate Amino Transferase 25 U/L (0-34); BUN/Creatinine Ratio 17 Ratio (12-20); Bilirubin,Total 1.2 mg/dL (0.3-1.2); Blood Urea Nitrogen 17 mg/dL (9-23); Calcium (Corrected) 9.5 mg/dL (8.5-10.1); Carbon Dioxide 29.6 mMol/L (20.0-31.0); Chloride 106 mMol/L (98-107); Estimated Creatinine Clearance 61.3 mL/min (>60); Globulin 2.1 gm/dL (2.3-3.5); Glucose 87 mg/dL (74-106); Magnesium 1.8 mg/dL (1.6-2.6); Osmolality,Calculated 285 (275-295); Phosphorous 4.7 mg/dL (2.4-5.1); Potassium 3.9 mMol/L (3.4-5.1); Sodium 143 mMol/L (136-145); Total Protein 5.5 gm/dL (5.7-8.2); eGFR > 60 See Note
[2024-09-24] MEDS: MEMANTINE HCL 5 MG TABLET PO ×2 (08:22→20:08)
[2024-09-24] MEDS: ASPIRIN EC 81 MG TABEC PO (08:22)
[2024-09-24] MEDS: SERTRALINE HCL 25 MG TABLET 100 MG PO (08:22)
[2024-09-24] MEDS: carVEDILOL 3.125 MG TABLET PO ×2 (08:22→17:18)
[2024-09-24] MEDS: TRIMETHOPRIM/SULFA 160/800 DS TABLET 1 TAB PO ×2 (08:22→20:08)
[2024-09-24] MEDS: PANTOPRAZOLE 40 MG TABLET PO (08:22)
[2024-09-24] MEDS: APIXABAN 2.5 MG TABLET 5 MG PO ×2 (08:23→20:08)
[2024-09-24] MEDS: levETIRAcetam INJ 100 MG/ML VIAL 5ML 500 MG IVP ×2 (08:23→20:07)
--- NOTE | 2024-09-24 13:11 | ESPR_ITS ---
<Statement entered by Faviola Berrios MD - 09/24/24 15:13> I discussed with and supervised the tax intern physician who took care of this patient. I personally saw and examined the patient and discussed the assessment and plan with the entire medicine team, including my attending Dr. Napoles, I agree with the assessment and plan as documented below Patient seen and examined at bedside today. Labs and imaging reviewed. This morning at the bedside patient is AO x 2, pending follow-up repeat blood cultures as well as EEG reading. Patient condition remains stable we will anticipate discharge in the next 24 to 48 hours. Faviola Berrios MD PGY-3 Disclaimer: Despite multiple revisions, due to the dictation software being used, the document bellow may not be free of grammatical errors including phonetic/typographic errors. However, this does not deter from our commitment to providing health care in the patient's best interest in mind. <Statement entered by Sisi Joyce MD - 09/24/24 15:02> No acute overnight events reported. Patient denies any complaints at this time. All labs and imaging reviewed. Pending final blood cultures and EEG read. Patient has been seizure-free since admission on Keppra 500 mg twice daily. Anticipate discharge within 24 to 48 hours. I discussed with and supervised the tax intern physician who took care of this patient. I personally saw and examined the patient and discussed the assessment and plan with the entire medicine team, including my attending , I agree with most of the assessment and plan as documented below Sisi Joyce M.D. PGY-2 Disclaimer: Despite multiple revisions, due to the dictation software being used, the document bellow may not be free of grammatical errors including phonetic/typographic errors. However, this does not deter from our commitment to providing health care in the patient's best interest in mind. Documentation for date of: 09/24/24 Subjective Subjective Interval history: No overnight events. Patient seen examined at bedside, resting comfortably. Patient denies nausea, vomiting, confusion, headache, fever, chills. Pending EEG read, pending repeat blood cultures. Continue current medical management. Exam Vital Signs Temp Pulse Resp BP Pulse Ox O2 Del Method O2 Flow Rate 97.1 F 60 17 124/68 93 L Room Air 6 09/24/24 08:00 09/24/24 11:53 09/24/24 08:00 09/24/24 08:22 09/24/24 08:00 09/24/24 08:00 09/22/24 11:08 Narrative Exam PE: Gen: Well-developed and well-nourished. HEENT: NCAT, PERRLA, EOMI, MMM, anicteric conjunctivae. CVS: normal S1 and S2. RRR. No M/R/G. Resp: CTA B/L. No rhonchi, rales, crackles or wheezing. Abd: soft, non-tender, non-distended. BS+ in all 4 quadrants. MSK: Good ROM in BUE & BLE. No edema or rash. Neuro: CN II-XII grossly intact. Strength 5/5 in BUE, strength 3/5 in BLE. Alert and oriented x2, baseline for patient. Unable to fully extend fingers right hand. Psych: appropriate mood and affect. Objective Labs 09/24/24 05:49 09/24/24 05:49 Labs: Laboratory Results - last 24 hr 09/24/24 05:49 WBC 5.8 RBC 3.65 L Hgb 11.9 L Hct 34.7 L MCV 95 MCH 32.6 MCHC 34.3 RDW Std Deviation 49.5 H Plt Count 119 L Neut % (Auto) 65 Lymph % (Auto) 24 [place] % (Auto) 7 Eos % (Auto) 3 Baso % (Auto) 1 Neut # (Auto) 3.8 Lymph # (Auto) 1.4 [place] # (Auto) 0.4 Eos # (Auto) 0.2 Baso # (Auto) 0.0 Immature Gran # (Auto) 0.01 H Absolute Nucleated RBC 0.00 Immature Gran % 0 Nucleated RBC % 0 Sodium 143 Potassium 3.9 Chloride 106 Carbon Dioxide 29.6 Anion Gap 7 BUN 17 Creatinine 1.0 Estim Creat Clear Calc 61.3 eGFR > 60 BUN/Creatinine Ratio 17 Glucose 87 Calculated Osmolality 285 Calcium 9.0 Corrected Calcium 9.5 Phosphorus 4.7 Magnesium 1.8 Total Bilirubin 1.2 AST 25 ALT 26 Alkaline Phosphatase 83 Total Protein 5.5 L Albumin 3.4 Globulin 2.1 L Albumin/Globulin Ratio 1.6 Quality Measures Quality Measures VTE prophylaxis Advance care planning discussed with:: patient Assessment & Plan Assessment Current Active Medications: Generic Name Dose Route Start Last Admin Trade Name Freq PRN Reason Stop Dose Admin Acetaminophen 650 mg 09/22/24 15:50 Acetaminophen Supp [address] 10/22/24 15:49 Q6HR PRN Fever > 100.4 or pain Apixaban 5 mg 09/22/24 21:00 09/24/24 08:23 Apixaban 2.5 Mg Tablet PO 10/22/24 20:59 5 mg BID DULCE Administration Aspirin 81 mg 09/23/24 09:00 09/24/24 08:22 Aspirin Ec 81 Mg Tabec PO 10/23/24 08:59 81 mg QDAY DULCE Administration Atorvastatin Calcium 80 mg 09/22/24 21:00 09/23/24 20:08 Atorvastatin Calcium 20 Mg Tablet PO 10/22/24 20:59 80 mg HS DULCE Administration Carvedilol 3.125 mg 09/22/24 17:30 09/24/24 08:22 Carvedilol 3.125 Mg Tablet PO 10/22/24 17:29 3.125 mg BIDWM DULCE Administration Levetiracetam 500 mg 09/22/24 21:00 09/24/24 08:23 Levetiracetam Inj 100 Mg/Ml Vial 5ml IVP 10/22/24 20:59 500 mg Q12HR DULCE Administration Lorazepam 2 mg 09/22/24 17:16 Lorazepam 2 Mg/Ml Vial IVP Q15MIN PRN ANXIETY Memantine 5 mg 09/23/24 09:00 09/24/24 08:22 Memantine Hcl 5 Mg Tablet PO 10/23/24 08:59 5 mg BID DULCE Administration Ondansetron HCl 4 mg 09/22/24 15:50 Ondansetron Inj 2 Mg/Ml Inj 2 Ml IV 10/22/24 15:49 Q6H PRN NAUSEA OR VOMITING Protocol Pantoprazole Sodium 40 mg 09/23/24 09:00 09/24/24 08:22 Pantoprazole 40 Mg Tablet PO 10/23/24 08:59 40 mg QDAY DULCE Administration Sertraline HCl 100 mg 09/23/24 09:00 09/24/24 08:22 Sertraline Hcl 25 Mg Tablet PO 10/23/24 08:59 100 mg DAILY DULCE Administration Trimethoprim/Sulfamethoxazole 1 tab 09/23/24 21:00 09/24/24 08:22 Trimethoprim/Sulfa 160/800 Ds Tablet PO 09/30/24 20:59 1 tab BID DULCE Administration Plan 84 y/o M with PMHx significant for hypertension, dementia, CVA, A-fib, HFrEF, DVTs presents from home to the ED on 09/22/2024 with chief complaint of witnessed seizure at home, admitted for new onset seizures. #New onset seizure Patient presented with new onset convulsions with emesis and postictal state. Patient back to baseline by time of exam, A&O x 2, appropriately responsive. Dr Joyce consulted from ED, appreciate recommendations. Head CT unremarkable, old infarcts noted. Loading dose of Keppra 1 g IV given. MRI head/brain showed no acute pathology. Patient failed bedside swallow screen, speech therapy saw patient and placed on dysphagia diet. -Neurology consulted, appreciate recommendations. -Telemetry -Neurochecks every 4 hours -EEG read pending, follow-up -MRI head/brain ordered, follow-up -Keppra 500 mg IV twice daily -Ativan 2 mg IV every 15 minute as needed for breakthrough seizures Max 3 doses #Bacteremia, sepsis ruled out Patient grew GPC in 1/2 blood cultures. Patient has history of bacteremia with staph epidermidis, patient started on Bactrim based on previous culture results. Repeat blood cultures drawn. -Follow-up pending blood cultures -Bactrim single strength 1 tab p.o. twice daily #HFrEF, patient history #Hypertension, patient history #A-fib, patient history Patient history as stated. EKG showed AV block, left bundle branch block, seen on previous imaging. Patient heart rate 60, regular rate and rhythm. 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 Enriquez. -Telemetry -Resume home meds: Eliquis 5 mg p.o. twice daily, aspirin 1 mg p.o. daily, Coreg 3.125 mg p.o. twice daily, atorvastatin 80 mg p.o. daily #CVA, patient history #Dementia, patient history Patient has history as stated. -Resume home meds as above -Holding donepezil, memantine, sertraline -Delirium precautions: Maintain good day night sleep cycle, avoid sedatives DVT prophylaxis: Eliquis GI prophylaxis: Not indicated Diet: Dysphagia level 3 Lines: Peripheral IV Code status: DNR/DNI Plan of care discussed with senior resident Dr. Joyce PGY?[address] Berrios PGY?3, and attending Dr. Napoles. Josias Griffin MD PGY?1 Attending Provider Attestation/Addendum I have examined the patient, reviewed labs and imaging findings, discussed the case with the resident(s), and reviewed entered orders. I agree with the plan of care as outlined in this note, with these additional summaries/recommendations: Patient seen at bedside. No acute overnight events. No further seizure activity noted since admission. MRI brain negative for acute CVA. Most likely patients new onset seizures is related to his previous CVA. In house neurology following. Pending EEG. Patient appears to be tolerating keppra dose. Continue home eliquis, aspirin, coreg, and atorvastatin. 09/22/24 blood cxs show 1 out of 2 bottles positive for GPC. 09/23/24 blood cxs show no growth at 24 hours. Patient will remain hosplitalized while awaiting speciation of blood cultures. Per patient is relatively bed bound. Continue seizure precautions. Repeat hematology and chemistry panel in am. Dr. Dony MD
[2024-09-24] MEDS: ATORVASTATIN CALCIUM 20 MG TABLET 80 MG PO (20:07)
--- NOTE | 2024-09-24 23:56 | PD.NEUROPROG ---
Documentation for date of: 09/24/24 Subjective Subjective Interval history: Patient was seen in telemetry today. No new symptoms reported. He continues to have mild right hemiparesis with spasticity and contracture in the right upper extremity more than lower. Exam - Neurology Vital Signs Temp Pulse Resp BP Pulse Ox O2 Del Method O2 Flow Rate 97.6 F 73 16 134/69 H 95 Room Air 6 09/24/24 20:00 09/24/24 20:00 09/24/24 20:00 09/24/24 20:00 09/24/24 20:00 09/24/24 20:00 09/22/24 11:08 Narrative Exam GENERAL APPEARANCE: Well hydrated, well-nourished in no acute distress. HEENT: Normocephalic, atraumatic, extraocular movements intact. Pupils: Equal reacting to light and accommodation, tympanic membranes are bilaterally intact. There is no bulge or retraction. Throat without erythema or exudate. Moist oral mucosa. NECK: Supple, no JVD or bruits. CARDIOVASULAR: Heart: S1, S2 heard, regular without S3-S4 or murmur no rubs or gallops. LUNGS/CHEST: Clear to auscultation bilaterally. No rails, rhonchi, or wheezing. Normal inspection. ABDOMEN: Soft, nontender, with normal bowel sounds. No pulsatile masses. No rebound, rigidity, or guarding. Normal inspection and palpation. EXTREMITIES: Normal inspection and palpation. No edema, clubbing or cyanosis. SKIN: Warm and dry without rashes. Normal inspection. MUSCULOSKELETAL: No cervical, thoracic, lumbar or midline bony tenderness. Normal inspection. NEURO: Alert, awake and oriented x2. Cranial nerves: II through XII grossly intact. Speech and language: Normal with no dysarthria or dysphasia. Motor system: Tone and bulk: Normal: Strength: Right hemiparesis affecting upper more than lower, with spasticity and contracture in the right hand. Deep tendon reflexes: 2+ bilaterally symmetrical. Plantar reflex: Downgoing bilaterally. Sensory system: Intact to pinprick sensation bilaterally. Coordination: Intact to dvzwab-ppfq-eewbbf and rnrq-hpyu-rgat test bilaterally. No ataxia, no dysmetria, or dysdiadochokinesia noted. No intention tremors noted. Gait: Not tested. No signs of meningeal irritation noted. PSYCHIATRIC: Normal mood and affect. Objective Labs 09/25/24 05:52 09/25/24 05:52 Labs: Laboratory Results - last 24 hr 09/24/24 05:49 WBC 5.8 RBC 3.65 L Hgb 11.9 L Hct 34.7 L MCV 95 MCH 32.6 MCHC 34.3 RDW Std Deviation 49.5 H Plt Count 119 L Neut % (Auto) 65 Lymph % (Auto) 24 Wilkin % (Auto) 7 Eos % (Auto) 3 Baso % (Auto) 1 Neut # (Auto) 3.8 Lymph # (Auto) 1.4 Wilkin # (Auto) 0.4 Eos # (Auto) 0.2 Baso # (Auto) 0.0 Immature Gran # (Auto) 0.01 H Absolute Nucleated RBC 0.00 Immature Gran % 0 Nucleated RBC % 0 Sodium 143 Potassium 3.9 Chloride 106 Carbon Dioxide 29.6 Anion Gap 7 BUN 17 Creatinine 1.0 Estim Creat Clear Calc 61.3 eGFR > 60 BUN/Creatinine Ratio 17 Glucose 87 Calculated Osmolality 285 Calcium 9.0 Corrected Calcium 9.5 Phosphorus 4.7 Magnesium 1.8 Total Bilirubin 1.2 AST 25 ALT 26 Alkaline Phosphatase 83 Total Protein 5.5 L Albumin 3.4 Globulin 2.1 L Albumin/Globulin Ratio 1.6 Assessment & Plan Assessment and plan (1) New onset seizure: Status: Acute Assessment and plan: Continue with the [facility] EEG showed diffuse slowing but no epileptiform discharges, it does not rule out the diagnosis of seizures (2) History of CVA (cerebrovascular accident): Status: Chronic Assessment and plan: With residual right hemiparesis Continue with apixaban and aspirin and statin (3) Dementia: Status: Chronic Assessment and plan: Vascular dementia pattern seen in MRI brain. Continue with blood pressure control, memantine and donepezil to slow down progression
[2024-09-25] VITALS: BP 136/75; PULSE 62; RESP 20; TEMP 36.3; O2SAT 93
[2024-09-25 04:00] VITALS: BP 126/68; PULSE 69; RESP 20; TEMP 36.6; O2SAT 94
[2024-09-25 06:27] LABS: Basophils % (Auto) 1 % (0-2.5); Eosinophils # (Auto) 0.2 Thou/mm3 (0.0-0.5); Eosinophils % (Auto) 3 % (0-10); Hematocrit 35.3 % (41.0-53.0); Hemoglobin 12.2 g/dL (13.5-16.0); Immature Granulocytes % (Auto) 0 % (0-0); Immature Granulocytes Auto 0.02 Thou/mm3 (0.00-0.00); Lymphocytes # (Auto) 1.5 Thou/mm3 (1.0-4.8); Lymphocytes % (Auto) 23 % (10-50); Mean Corpuscular HGB Conc 34.6 g/dl (31.0-37.0); Mean Corpuscular Hemoglobin 32.8 pg (25.0-35.0); Mean Corpuscular Volume 95 fL (80-100); Monocytes # (Auto) 0.5 Thou/mm3 (0.0-0.8); Monocytes % (Auto) 8 % (0-12); Neutrophils # (Auto) 4.1 Thou/mm3 (1.8-7.7); Neutrophils % (Auto) 65 % (37-80); Nucleated Red Blood Cell % 0 /100 WBC (0); Platelet Count 128 Thou/mm3 (140-440); RDW Standard Deviation 47.8 fL (35.1-43.9); Red Blood Count 3.72 Miln/mm3 (4.50-5.90); White Blood Count 6.3 Thou/mm3 (3.8-10.6)
[2024-09-25 06:40] LABS: Alanine Aminotransferase 33 U/L (10-49); Albumin, Serum 3.6 gm/dL (3.4-4.8); Albumin/Globulin Ratio 1.8 (1.2-2.2); Alkaline Phosphatase 86 U/L (46-116); Anion Gap 6 (7-16); Aspartate Amino Transferase 27 U/L (0-34); BUN/Creatinine Ratio 18 Ratio (12-20); Bilirubin,Total 0.9 mg/dL (0.3-1.2); Blood Urea Nitrogen 22 mg/dL (9-23); Calcium 8.8 mg/dL (8.3-10.6); Calcium (Corrected) 9.1 mg/dL (8.5-10.1); Carbon Dioxide 29.3 mMol/L (20.0-31.0); Chloride 106 mMol/L (98-107); Creatinine (Component) 1.2 mg/dL (0.6-1.3); Glucose 87 mg/dL (74-106); Magnesium 1.9 mg/dL (1.6-2.6); Osmolality,Calculated 283 (275-295); Phosphorous 4.8 mg/dL (2.4-5.1); Potassium 3.8 mMol/L (3.4-5.1); Sodium 141 mMol/L (136-145); Total Protein 5.6 gm/dL (5.7-8.2); eGFR > 60 See Note
[2024-09-25 08:00] VITALS: BP 126/62; PULSE 59; RESP 17; TEMP 36.1; O2SAT 94
[2024-09-25] MEDS: SERTRALINE HCL 25 MG TABLET 100 MG PO (08:57)
[2024-09-25] MEDS: ASPIRIN EC 81 MG TABEC PO (08:57)
[2024-09-25] MEDS: PANTOPRAZOLE 40 MG TABLET PO (08:57)
[2024-09-25] MEDS: TRIMETHOPRIM/SULFA 160/800 DS TABLET 1 TAB PO (08:58)
[2024-09-25] MEDS: MEMANTINE HCL 5 MG TABLET PO (08:58)
[2024-09-25] MEDS: APIXABAN 2.5 MG TABLET 5 MG PO (08:58)
[2024-09-25] MEDS: levETIRAcetam INJ 100 MG/ML VIAL 5ML 500 MG IVP (08:58)
[2024-09-25 08:59] VITALS: BP 126/62; PULSE 59
[2024-09-25 12:00] VITALS: BP 122/72; PULSE 68; RESP 19; TEMP 36.2; O2SAT 94
--- NOTE | 2024-09-25 14:46 | ESDS_ITS ---
<Statement entered by Faviola Berrios MD - 09/25/24 15:01> I discussed with and supervised the international controller physician who took care of this patient. I personally saw and examined the patient and discussed the assessment and plan with the entire medicine team, including my attending Dr. Napoles, I agree with the assessment and plan as documented below Patient seen and examined at bedside today. Labs and imaging reviewed. Faviola Berrios MD PGY-3 Disclaimer: Despite multiple revisions, due to the dictation software being used, the document bellow may not be free of grammatical errors including phonetic/typographic errors. However, this does not deter from our commitment to providing health care in the patient's best interest in mind. <Statement entered by Sisi Joyce MD - 09/25/24 15:01> I discussed with and supervised the international controller physician who took care of this patient. I personally saw and examined the patient and discussed the assessment and plan with the entire medicine team, including my attending , I agree with most of the assessment and plan as documented below Sisi Joyce M.D. PGY-2 Planned Discharge Date 09/25/24 DS: Providers Provider Date of admission: 09/22/24 16:20 Primary care physician: Sudhakar Willis MD Admitting Provider: Stephan Napoles MD Attending Provider on Admission: Stephan Napoles MD Consults: 09/22/24 14:48 Consult to Neurology / Tele-Neurology Stat Comment: New onset seizure Consulting Provider: George Joyce 09/22/24 21:19 Referral Speech Therapy Routine Comment: Attending Provider on DC: Stephan Napoles MD Discharging Provider: Josias Griffin MD DS: Diagnosis Problem List Completed Was Problem List Reviewed/Reconciled?: Yes Hospital Course Hospital Course Hospital course: 84 y/o M with PMHx significant for hypertension, dementia, CVA, A-fib, HFrEF, DVTs presents from home to the ED on 09/22/2024 with chief complaint of witnessed seizure at home. By time of exam in ED, patient back to baseline state. Neurology was consulted, recommend imaging to rule out stroke which was negative. Patient received loading dose of Keppra, monitored for reaction to Keppra. Patient no further signs of seizure, tolerating Keppra well. During hospital stay patient grew GPC in blood cultures, staph epididymitis, likely contaminant based on repeat cultures being negative. Patient cleared for discharge from neurology perspective. Patient medically stable and cleared for discharge. Discharge plan: You have been started on the following medications: -Keppra 500 mg twice daily Continue taking all other medications as previously prescribed You have been referred to Dr. Joyce neurology, please follow-up within 1-2 weeks Please follow-up with your PCP within 1-2 weeks Return to the ED if you develop new or worsening symptoms Diagnoses: #New onset seizure #Bacteremia, sepsis ruled out #HFrEF, patient history #Hypertension, patient history #A-fib, patient history Plan of care discussed with senior resident Dr. Joyce PGY?[address] Berrios PGY?3, and attending Dr. Napoles. Josias Griffin MD PGY?1 Status at Discharge Overall status at discharge: patient is back to baseline Time Spent with Patient Time attestation: Total time spent providing and/or coordinating discharge services: Time spent: Greater than 30 minutes Exam Vital Signs Temp Pulse Resp BP Pulse Ox O2 Del Method O2 Flow Rate 97.1 F 68 19 122/72 94 L Room Air 6 09/25/24 12:00 09/25/24 12:00 09/25/24 12:00 09/25/24 12:00 09/25/24 12:00 09/25/24 12:00 09/22/24 11:08 Narrative Exam PE: Gen: Well-developed and well-nourished. HEENT: NCAT, PERRLA, EOMI, MMM, anicteric conjunctivae. CVS: normal S1 and S2. RRR. No M/R/G. Resp: CTA B/L. No rhonchi, rales, crackles or wheezing. Abd: soft, non-tender, non-distended. BS+ in all 4 quadrants. MSK: Good ROM in BUE & BLE. No edema or rash. Neuro: CN II-XII grossly intact. Strength 5/5 in BUE, strength 3/5 in BLE. Alert and oriented x2, baseline for patient. Unable to fully extend fingers right hand. Psych: appropriate mood and affect. Discharge Plan Plan Patient Disposition: HOME (Self Care) Disposition Comment: stable Patient condition on transfer: Stable Care Plan Goals: You have been started on the following medications: -Keppra 500 mg twice daily Continue taking all other medications as previously prescribed You have been referred to Dr. Joyce neurology, please follow-up within 1-2 weeks Please follow-up with your PCP within 1-2 weeks Return to the ED if you develop new or worsening symptoms Prescriptions/Referrals Prescriptions/Med Rec: New levetiracetam [Keppra] 500 mg tablet 500 mg PO BID 30 Days Qty: 60 0RF Continued donepezil 10 mg tablet 10 mg PO HS Patient Comments: TAKE 1 TABLET BY MOUTH EVERY DAY WITH FOOD sertraline 100 mg tablet 100 mg PO DAILY Patient Comments: TAKE 1 TABLET BY MOUTH EVERY DAY carvedilol 3.125 mg tablet 3.125 mg PO BID Patient Comments: TAKE 1 TABLET BY MOUTH TWICE A DAY pantoprazole 40 mg tablet,delayed release (DR/EC) 40 mg PO DAILY Patient Comments: TAKE 1 TABLET BY MOUTH EVERY DAY memantine 5 mg tablet 5 mg PO BID Patient Comments: TAKE 1 TABLET BY MOUTH TWICE A DAY losartan-hydrochlorothiazide 100-12.5 mg tablet 1 tab PO DAILY Patient Comments: TAKE 1 TABLET BY MOUTH EVERY DAY Eliquis DVT-PE Treat 30D Start 5 mg (74 tabs) tablets,dose pack 5 mg PO BID Qty: 74 0RF aspirin [Adult Low Dose Aspirin] 81 mg tablet,delayed release (DR/EC) 81 mg PO QDAY Qty: 30 0RF atorvastatin 80 mg tablet 80 mg PO QPM Qty: 30 0RF Referrals: Sudhakar Willis MD [Primary Care Provider] - George Joyce MD [Physician] - Patient/Caregiver Discharge Instructions Discharge Activity: resume usual activities Education Materials: Caring for End-Stage Dementia, Dementia Patients Caregiver, Delirium & Dementia Difference, ED Seizure New Onset Unknown ... Print Language: Sinhala Stand Alone Forms: Caroline Award Info., Patient Portal Info Letter Discharge Order Discharge Orders: Discharge (Routine); Ordered 09/25/24 Ordered By: Josias Griffin Quality Discharge Quality Measures VTE prophylaxis Attestestation MD Attestation I have examined the patient, reviewed labs and imaging findings, discussed the case with the resident(s), and reviewed entered orders. I agree with the plan of care as outlined in this note. Time Spent: [address] Dony MD
== END 2024-09-25 12:18 | disposition home or self-care (01) | DRG 101 ==
LOC: SERX 14:57 → SERHOLD 16:23 → S3SX 22:06
PROVIDERS: Nurse Practitioner Family; Admitting Provider Student in an Organized Health Care Education/Training Program; Emergency Provider Emergency Medicine; PCP Internal Medicine; Visit Provider Student in an Organized Health Care Education/Training Program
DX: R56.9 Unspecified convulsions (principal); I50.22 Chronic systolic (congestive) heart failure; I69.351 Hemiplegia and hemiparesis following cerebral infarction affecting right dominant side; R78.81 Bacteremia; I11.0 Hypertensive heart disease with heart failure; I44.30 Unspecified atrioventricular block; I69.398 Other sequelae of cerebral infarction; F01.50 Vascular dementia, unspecified severity, without behavioral disturbance, psychotic disturbance, mood disturbance, and anxiety; I48.91 Unspecified atrial fibrillation; I44.7 Left bundle-branch block, unspecified; R11.10 Vomiting, unspecified; Z79.01 Long term (current) use of anticoagulants; Z66 Do not resuscitate; Z74.01 Bed confinement status; Z79.899 Other long term (current) drug therapy; Z99.3 Dependence on wheelchair; B95.7 Other staphylococcus as the cause of diseases classified elsewhere
CPT/HCPCS: 36415; 70450; 70551; 71045; 80053; 80061; 81001; 83605; 83735; 83880; 84100; 84145; 85025; 85610; 85730; 87040; 87077; 87186; 92610; 93005; 93225; 95816; 96374; 99285; J1650; J1953; A9270

== ENCOUNTER 2024-10-09 14:45 | Emergency (ER) | payer MEDICARE, SELFPAY ==
[2024-10-09 14:45] VITALS: BMI 23.1
[2024-10-09 14:55] VITALS: BP 113/73; PULSE 65; RESP 18; TEMP 36.4; O2SAT 95
--- NOTE | 2024-10-09 15:17 | PD.EDSEIZ ---
ED Seizures RME/HPI General Chief Complaint: Seizure Stated Complaint: SEIZURE AT NEUROLOGIST OFFICE Time Seen by Provider: 10/09/24 15:18 Arrival date/time: 10/09/24 14:45 RME / HPI RME / HPI Narrative: DR. ESPINOSA MAIN ED EVALUATION: 84-year-old male patient sent by Dr. Joyce from her office for recurrent seizure. Patient has a history of CVA May 2020 with right hemiparesis, TIA July 2024, vascular dementia. He is on aspirin and Eliquis. During his last admission he had a new onset seizure. Today on follow-up in Dr. Joyce's office patient had seizure x 2 and multiple episodes of vomiting over the past 20 minutes. Blood pressure at the office 80s/60s. He is DNR and on Keppra extended release twice daily. Dr. Joyce recommends fluid hydration and a loading dose of Keppra. No cough, chest pain, or shortness of breath. No nausea, vomiting, or diarrhea. Related Data Home Medications ?Medication ?Instructions ?Recorded ?Confirmed carvedilol 3.125 mg tablet 3.125 mg PO BID 05/22/24 09/22/24 donepezil 10 mg tablet 10 mg PO HS 05/22/24 09/22/24 losartan 100 1 tab PO DAILY 05/22/24 09/22/24 mg-hydrochlorothiazide 12.5 mg tablet memantine 5 mg tablet 5 mg PO BID 05/22/24 09/22/24 pantoprazole 40 mg tablet,delayed 40 mg PO DAILY 05/22/24 09/22/24 release sertraline 100 mg tablet 100 mg PO DAILY 05/22/24 09/22/24 Previous Rx's ?Medication ?Instructions ?Recorded apixaban 5 mg (74 tabs) tablets in 5 mg PO BID #74 tabs 05/25/24 a dose pack (Eliquis DVT-PE Treat 30D Start) aspirin 81 mg tablet,delayed 81 mg PO QDAY #30 tabs 05/25/24 release (Adult Low Dose Aspirin) atorvastatin 80 mg tablet 80 mg PO QPM #30 tabs 05/25/24 levetiracetam 500 mg tablet 500 mg PO BID 1 month #60 tabs 09/25/24 (Keppra) Allergies Allergy/AdvReac Type Severity Reaction Status Date / Time No Known Allergies Allergy Verified 10/09/24 14:47 Review of Systems Review of Systems Systems Reviewed: All systems reviewed, normal except as documented Past Medical History Past Medical History NEUROLOGIC: Positive Cerebrovascular Accident, Dementia and Alzheimer's Disease CARDIAC: Positive Cardiac Disorders and Hypertension GASTROINTESTINAL: Positive Gastroesophageal Reflux Disease MUSCULOSKELETAL: Positive Arthritis Social History SMOKING STATUS: Never smoker SUBSTANCE USE: does not use ALCOHOL: Never ED Exam Narrative Physical exam: GENERAL APPEARANCE: alert and oriented x 4, well-developed, well-nourished, no acute distress VITALS: All vitals were reviewed and the pulse ox is 95% on room air, which is normal according to my interpretation. HEENT: Normocephalic, atraumatic; pupils equal, round, reactive to light; EOMI; mucous membranes pink, moist; oropharynx clear NECK: Supple LUNGS: CTABL; no wheezes, no rales, no rhonchi HEART: Regular rate, regular rhythm; normal S1, S2; no murmurs ABDOMEN: non distended; normal BS; soft, no tenderness, no guarding, no rebound; no masses, no organomegaly, no hernia BACK: no CVA tenderness EXTREMITIES: contractures; no edema NEUROLOGIC: awake; alert and oriented x4; cranial nerves II-XII grossly intact PSYCHIATRIC: appropriate mood and affect SKIN: warm, dry, normal color; no rashes Course Quality Measures none Orders Category Date Time Status Claims Auditor NOW Care 10/09/24 15:23 Completed EKG (ED ONLY) *Do not use* NOW Care 10/09/24 15:23 Completed EKG (ED Only) Stat Exams 10/09/24 15:23 Draft B-Type Natriuretic Peptide Stat Lab 10/09/24 15:35 Completed CBC Stat Lab 10/09/24 15:35 Completed Comprehensive Metabolic Panel Stat Lab 10/09/24 15:35 Completed Lactate (Lactic Acid) Stat Lab 10/09/24 15:35 Completed Lipase Stat Lab 10/09/24 15:35 Completed Magnesium Stat Lab 10/09/24 15:35 Completed Partial Thromboplastin Time Stat Lab 10/09/24 15:35 Completed Prothrombin Time with INR Stat Lab 10/09/24 15:35 Completed Troponin I Stat Lab 10/09/24 15:35 Completed UA, C/S IF [Urinalysis, C/S if Indicated] Stat Lab 10/09/24 16:00 Completed Sodium Chloride 0.9% 1000 ml [Ns] 1,000 ml Med 10/09/24 15:22 Discontinued IV 999 mls/hr levETIRAcetam INJ [Keppra Inj] Med 10/09/24 15:22 Discontinued 1,000 mg IVP X1 ONE Vital Signs Vital signs: Vital Signs Temperature 97.6 F 10/09/24 14:55 Pulse Rate 65 10/09/24 14:55 Respiratory Rate 18 10/09/24 14:55 Blood Pressure 113/73 10/09/24 14:55 Pulse Oximetry (%) 95 10/09/24 14:55 Oxygen Delivery Method Room Air 10/09/24 14:55 Seizure MDM Narrative MDM Narrative:: I, Dinora Addison am scribing for and in the presence of Dr. Espinosa. Patient data External records reviewed:: [facility] previous records (Reviewed last admission discharge dated 09/25/24, patient admitted for the following: New onset seizure, History of CVA (cerebrovascular accident)) Clinical information provided by:: patient Social determinants that could affect healthcare access:: none Patient has the following chronic illnesses:: CVA May 2020 with right hemiparesis, TIA July 2024, vascular dementia. On aspirin and Eliquis. During his last admission he had a new onset seizure and today again x2 seizures see HPI. He is DNR. How is presenting disease/condition affected by chronic disease/condition?: exacerbated by Evaluation data The following diagnostics were reviewed and interpreted by me:: lab results and EKG tracing(s) Lab and/or radiology exams considered but not ordered:: none Interpretation Summary: EKG#1: EKG at 1551 hours. Interpreted by me: sinus rhythm, rate 61, occasional PVCs, unable to determine pacemaker Medications / Prescriptions Medications or Prescriptions considered but not ordered:: none Medication administrations:: Medication Administration History Discontinued Medications Sodium Chloride (Ns) 1,000 mls @ 999 mls/hr IV .Q1H1M ONE Stop: 10/09/24 16:22 Last Infusion: 10/09/24 17:15 Dose: Infused Documented By: Admin: 10/09/24 15:40 Dose: 999 mls/hr Documented By: QI Levetiracetam (Levetiracetam Inj 100 Mg/Ml Vial 5ml) 1,000 mg IVP X1 ONE Stop: 10/09/24 15:23 Last Admin: 10/09/24 15:41 Dose: 1,000 mg Documented By: QI see above Consultations Consultation(s) initiated? (list below): No Diagnosis Seizure Differential Diagnosis: generalized seizure, epileptic seizure and other (recurrent seizure) Most likely diagnosis given after review of the tests above:: See below. Admission Indicated Admission indicated?: not indicated Explain why admission is indicated or not indicated:: Patient signout to the operation shift supervisor provider, pending re-evaluation and final disposition. Admission Request Was there a request for admission?: No Disposition Plan Disposition Plan: other (specify) (Patient signout to the operation shift supervisor provider, pending re-evaluation and final disposition. ) Discharge Plan Plan Patient Disposition: HOME (Self Care) Prescriptions/Referrals Prescriptions/Med Rec: No Action donepezil 10 mg tablet 10 mg PO HS Patient Comments: TAKE 1 TABLET BY MOUTH EVERY DAY WITH FOOD sertraline 100 mg tablet 100 mg PO DAILY Patient Comments: TAKE 1 TABLET BY MOUTH EVERY DAY carvedilol 3.125 mg tablet 3.125 mg PO BID Patient Comments: TAKE 1 TABLET BY MOUTH TWICE A DAY pantoprazole 40 mg tablet,delayed release (DR/EC) 40 mg PO DAILY Patient Comments: TAKE 1 TABLET BY MOUTH EVERY DAY memantine 5 mg tablet 5 mg PO BID Patient Comments: TAKE 1 TABLET BY MOUTH TWICE A DAY losartan-hydrochlorothiazide 100-12.5 mg tablet 1 tab PO DAILY Patient Comments: TAKE 1 TABLET BY MOUTH EVERY DAY Eliquis DVT-PE Treat 30D Start 5 mg (74 tabs) tablets,dose pack 5 mg PO BID Qty: 74 0RF aspirin [Adult Low Dose Aspirin] 81 mg tablet,delayed release (DR/EC) 81 mg PO QDAY Qty: 30 0RF atorvastatin 80 mg tablet 80 mg PO QPM Qty: 30 0RF levetiracetam [Keppra] 500 mg tablet 500 mg PO BID 30 Days Qty: 60 0RF Referrals: Sudhakar Willis MD [Primary Care Provider] - In 1 week Problem List Clinical Impression: Recurrent seizures Patient/Caregiver Discharge Instructions Discharge Activity: activity as tolerated Education Materials: ED Seizure, Recurrent (Adult) Additional Instructions: Discharge Instructions from Dr. Finnegan printed for you: 1. I discussed the case with your neurologist, Dr. Joyce. And followed her instructions. 2. Take Keppra as she prescribed. 3. Take sertraline 1/2 pill of 100 mg every day for 2 weeks. Then 1/2 pill every other day for 2 weeks then discontinue. 4. Continue outpatient care with your neurologist. 5. Seek immediate medical care with another seizure or with any concerns. Print Language: Sinhala Stand Alone Forms: Caroline Award Info., Patient Portal Info Letter
[2024-10-09 15:23] VITALS: PULSE 54
--- NOTE | 2024-10-09 15:23 | EKG_ITS ---
[facility] Test Date: 2024-10-09 Pat Name: CLARICE PEDERSEN Department: Room: - Gender: Male Solution Make Up Operator: : 1940 Requested By: Desiree Gabriel Order Number: [id number] Reading MD: Desiree Gabriel Measurements Intervals [place] Rate: 61 P: CT: QRS: -6 QRSD: 146 T: 153 QT: 496 QTc: 501 Interpretive Statements SINUS RHYTHM WITH HIGH GRADE AV BLOCK LEFT BUNDLE BRANCH BLOCK [120+ ms QRS DURATION, 80+ ms Q/S IN V1/V2, 85+ ms R IN I/aVL/V5/V6] CRITICAL TEST RESULT Compared to ECG 09/22/2024 12:57:37 Sinus bradycardia no longer present First degree AV block no longer present /store/S0/[id number]
[2024-10-09] MEDS: SODIUM CHLORIDE 0.9% 1000 ML 1,000 ML 999 ML IV (15:40)
[2024-10-09] MEDS: levETIRAcetam INJ 100 MG/ML VIAL 5ML 1000 MG IVP (15:41)
[2024-10-09 15:55] LABS: Lactate (Lactic Acid) 1.1 mMol/L (0.4-2.0)
[2024-10-09 15:58] LABS: Basophils # (Auto) 0.1 Thou/mm3 (0.0-0.2); Basophils % (Auto) 1 % (0-2.5); Eosinophils # (Auto) 0.2 Thou/mm3 (0.0-0.5); Eosinophils % (Auto) 2 % (0-10); Hematocrit 39.3 % (41.0-53.0); Hemoglobin 13.3 g/dL (13.5-16.0); Immature Granulocytes % (Auto) 0 % (0-0); Immature Granulocytes Auto 0.03 Thou/mm3 (0.00-0.00); Lymphocytes # (Auto) 1.2 Thou/mm3 (1.0-4.8); Lymphocytes % (Auto) 16 % (10-50); Mean Corpuscular HGB Conc 33.8 g/dl (31.0-37.0); Mean Corpuscular Hemoglobin 32.6 pg (25.0-35.0); Mean Corpuscular Volume 96 fL (80-100); Monocytes # (Auto) 0.5 Thou/mm3 (0.0-0.8); Monocytes % (Auto) 7 % (0-12); Neutrophils # (Auto) 5.9 Thou/mm3 (1.8-7.7); Neutrophils % (Auto) 75 % (37-80); Nucleated Red Blood Cell % 0 /100 WBC (0); Platelet Count 119 Thou/mm3 (140-440); RDW Standard Deviation 49.2 fL (35.1-43.9); Red Blood Count 4.08 Miln/mm3 (4.50-5.90); White Blood Count 7.9 Thou/mm3 (3.8-10.6)
[2024-10-09 16:12] LABS: Collection Type, Urine Clean Catch
[2024-10-09 16:17] LABS: Bilirubin,Urine Negative (Negative); Blood,Urine Negative (Negative); Clarity,Urine Clear (Clear/Hazy); Color,Urine Yellow (Lt Yel-Yel); Culture Indicated,Urine Not Indicated; Glucose, Urine Negative (Negative); Ketones,Urine Negative (Negative); Leukocyte Esterase,Urine Negative (Negative); Nitrite,Urine Negative (Negative); PH,Urine 5.5 (5.0-7.0); Protein,Urine Negative (Neg - Trace); RBC,Urine 1 /hpf (0-3); Specific Gravity,Urine 1.026 (1.001-1.035); Squamous Epithelial Cell,Urine 1 /hpf (0-5); Urobilinogen,Urine Negative mg/dL (0.0-1.0); WBC,Urine 4 /hpf (0-5)
[2024-10-09 16:18] LABS: B-Type Natriuretic Peptide 180 pg/mL (0-100); INR 1.1 (0.9-1.3); Partial Thromboplastin Time 27.1 Seconds (22.0-36.0); Prothrombin Time 11.8 Seconds (9.0-12.2)
[2024-10-09 16:19] LABS: Alanine Aminotransferase 63 U/L (10-49); Albumin, Serum 3.8 gm/dL (3.4-4.8); Albumin/Globulin Ratio 1.7 (1.2-2.2); Alkaline Phosphatase 93 U/L (46-116); Anion Gap 6 (7-16); Aspartate Amino Transferase 41 U/L (0-34); BUN/Creatinine Ratio 19 Ratio (12-20); Bilirubin,Total 0.7 mg/dL (0.3-1.2); Blood Urea Nitrogen 19 mg/dL (9-23); Calcium (Corrected) 9.2 mg/dL (8.5-10.1); Carbon Dioxide 30.3 mMol/L (20.0-31.0); Chloride 107 mMol/L (98-107); Estimated Creatinine Clearance 55.1 mL/min (>60); Globulin 2.3 gm/dL (2.3-3.5); Glucose 116 mg/dL (74-106); Lipase 32 U/L (12-53); Magnesium 1.9 mg/dL (1.6-2.6); Osmolality,Calculated 288 (275-295); Potassium 4.2 mMol/L (3.4-5.1); Sodium 143 mMol/L (136-145); Total Protein 6.1 gm/dL (5.7-8.2); Troponin I < 0.020 ng/mL (0.0-0.045); eGFR > 60 See Note
[2024-10-09 16:20] VITALS: BP 136/69; PULSE 70; RESP 22; TEMP 36.4; O2SAT 95
[2024-10-09 17:53] VITALS: BP 144/87; PULSE 58; RESP 18; TEMP 36.3; O2SAT 97
--- NOTE | 2024-10-09 19:30 | PD.EDADDENDU ---
Emergency Room Addendum Addendum Narrative: I took over the care from Dr. DE LA TORRE at 6 PM on 10/09/2024, see her notes for complete H&P and ED course. I reviewed all diagnostic test results. At this point, diagnoses include recurrent seizures at Dr. Joyce's office today. Treatment here included IV fluid and Keppra 1000 mg IV. Significant improvement noted and patient returned to baseline. I discussed the case with Dr. Joyce. About the presentation and exam and diagnostics and treatments here. And possible need of further care in the hospital. Recommended discharge and provided instructions which I typed up for the patient, see below. Based on my best medical judgment, made decision no further evaluation or treatment indicated at this time. Patient (and daughter) understands and agrees to the discharge instructions customized and printed, see below. Discharge Instructions from Dr. Finnegan printed for you: 1. I discussed the case with your neurologist, Dr. Joyce. And followed her instructions. 2. Take Keppra as she prescribed. 3. Take sertraline 1/2 pill of 100 mg every day for 2 weeks. Then 1/2 pill every other day for 2 weeks then discontinue. 4. Continue outpatient care with your neurologist. 5. Seek immediate medical care with another seizure or with any concerns. Rishi Finnegan MD
== END 2024-10-09 19:49 | disposition home or self-care (01) ==
PROVIDERS: Emergency Medicine; Emergency Provider Emergency Medicine; PCP Internal Medicine
DX: R56.9 Unspecified convulsions (principal); I44.7 Left bundle-branch block, unspecified; I10 Essential (primary) hypertension
CPT/HCPCS: 36415; 80053; 81001; 83605; 83690; 83735; 83880; 84484; 85025; 85610; 85730; 93005; 96361; 96374; 99284; J1953; J7030